=== PATIENT | male | born 1950 | race Caucasian/White ===

== ENCOUNTER 2017-05-24 16:11 | Inpatient (IN) | payer OTHER ==
[2017-05-24 17:36] LABS: ADD MAN DIFF? NO
[2017-05-24 17:38] LABS: WHITE BLOOD COUNT 14.3 10^3/ul (4.8-10.8)
[2017-05-24 17:38] LABS: BASOPHIL # 0.1 10^3/ul (0.0-0.1); BASOPHILS % 0.3 % (0.0-2.0); EOSINOPHILS # 0.2 10^3/ul (0.0-0.5); EOSINOPHILS % 1.5 % (0.0-7.0); HEMATOCRIT 39.1 % (42.0-52.0); HEMOGLOBIN 12.3 g/dl (14.0-18.0); LYMPHOCYTES # 2.6 10^3/ul (0.8-2.9); LYMPHOCYTES % 18.2 % (15.0-51.0); MEAN CORPUSCULAR HGB CONC 31.5 g/dl (32.0-37.0); MEAN CORPUSCULAR VOLUME 104.8 fl (82.0-101.0); MEAN PLATELET VOLUME 10.9 fl (7.4-10.4); MONOCYTE # 1.5 10^3/ul (0.3-0.9); MONOCYTES % 10.3 % (0.0-11.0); NEUTROPHIL # 9.9 10^3/ul (1.6-7.5); PLATELET COUNT 294 10^3/UL (140-415); RED BLOOD COUNT 3.73 10^6/ul (4.70-6.10); RED CELL DISTRIBUTION WIDTH 14.6 % (11.5-14.5)
[2017-05-24] MEDS: IBUPROFEN 600 MG TAB PO (18:09)
[2017-05-24] MEDS: HYDROmorphONE 1 MG/ML SYG IV (18:09)
[2017-05-24 18:32] LABS: ANION GAP 24 (8-16); BLOOD UREA NITROGEN 69 mg/dl (7-20); CALCIUM 8.7 mg/dl (8.4-10.2); CARBON DIOXIDE 22 mmol/L (21-31); CHLORIDE 96 mmol/L (97-110); CREATININE 7.74 mg/dl (0.61-1.24); GLUCOSE 97 mg/dl (70-220); POTASSIUM 5.8 mmol/L (3.5-5.1); SODIUM 136 mmol/L (135-144)
[2017-05-24] MEDS ORDERED: DOCUSATE SODIUM 100 MG CAP PO (19:00)
[2017-05-24] MEDS ORDERED: LORAZEPAM 2 MG INJ IV (19:00)
[2017-05-24] MEDS ORDERED: NACL 0.9% 3 ML SYG IV (19:00)
[2017-05-24] MEDS ORDERED: hydrALAzine 20 MG INJ IV (19:00)
[2017-05-24] MEDS ORDERED: VANCOMYCIN IV PER PHARMACY XX (19:00)
[2017-05-24] MEDS ORDERED: ONDANSETRON 4 MG INJ IV (19:00)
[2017-05-24] MEDS ORDERED: NA PHOSPHATE/BIPHOS 133 ML ENEMA PR (19:00)
[2017-05-24 19:08] LABS: FREE T4 (FREE THYROXINE) 1.46 ng/dl (0.78-2.44)
[2017-05-24] MEDS ORDERED: GLUCOSE GEL 15 GRAM TUBE BUCCAL (20:30)
[2017-05-24] MEDS ORDERED: DEXTROSE 50% 50 ML SYRINGE IV ×2 (20:30)
[2017-05-24] MEDS ORDERED: GLUCOSE GEL 15 GRAM TUBE PO ×2 (20:30)
[2017-05-24] MEDS ORDERED: GLUCAGON 1 MG INJ IM (20:30)
[2017-05-24] MEDS: SOD CHLORIDE 0.45% 1,000 ML IV (20:54)
[2017-05-24] MEDS: INSULIN ASPART [NOVOLOG] 3 ML PEN SC (20:55)
[2017-05-24] MEDS: METOPROLOL 25 MG TAB PO (20:56)
[2017-05-24] MEDS: HEPARIN 5,000 UNIT/0.5 ML VIAL SC (20:58)
[2017-05-24] MEDS ORDERED: MEROPENEM 1 GM/50ML(PMX) 50 ML IVPB (21:00)
[2017-05-24] MEDS ORDERED: [UNRECOGNIZED DRUG - REMARK] HE (21:00)
[2017-05-24] MEDS ORDERED: NA POLYST SULFON 15 GM/60 ML BTL PO (21:00)
[2017-05-24] MEDS: CLINDAMYCIN 600 MG/D5W (PMX) 50 ML IVPB (21:51)
[2017-05-24] MEDS: NA POLYST SULFON 15 GM/60 ML BTL PO (21:51)
[2017-05-24] MEDS: PIPER-TAZO 2.25 GM (PMX) 50 ML IVPB (21:52)
[2017-05-25] MEDS ORDERED: PIPER-TAZO 3.375 GM IV (PMX) 50 ML IVPB
[2017-05-25] MEDS: INSULIN ASPART [NOVOLOG] 3 ML PEN SC ×5 (01:00→20:48)
[2017-05-25] MEDS: ACCU-CHEK XX (02:00)
[2017-05-25] MEDS: PIPER-TAZO 2.25 GM (PMX) 50 ML IVPB ×2 (05:09→14:49)
[2017-05-25] MEDS: PANTOPRAZOLE (EC) 40 MG TAB PO (05:46)
[2017-05-25] MEDS: CLINDAMYCIN 600 MG/D5W (PMX) 50 ML IVPB ×2 (05:47→11:28)
[2017-05-25] MEDS: morphine 2 MG INJ IV ×3 (05:48→15:17)
[2017-05-25 07:03] LABS: ADD MAN DIFF? NO
[2017-05-25 07:06] LABS: CHOL/HDL RATIO 2.9 RATIO; HDL CHOLESTEROL 36 mg/dl (30-78); LDL CHOLESTEROL,CALCULATED 57 mg/dl; TRIGLYCERIDES 71 mg/dl (0-149)
[2017-05-25 07:06] LABS: CHOLESTEROL 107 mg/dl (100-200)
[2017-05-25 07:07] LABS: HEMOGLOBIN A1C 5.3 % (0-5.9); WHITE BLOOD COUNT 10.4 10^3/ul (4.8-10.8)
[2017-05-25 07:07] LABS: BASOPHILS % 0.4 % (0.0-2.0); EOSINOPHILS # 0.3 10^3/ul (0.0-0.5); EOSINOPHILS % 2.9 % (0.0-7.0); HEMATOCRIT 31.2 % (42.0-52.0); HEMOGLOBIN 9.6 g/dl (14.0-18.0); LYMPHOCYTES # 2.5 10^3/ul (0.8-2.9); LYMPHOCYTES % 24.1 % (15.0-51.0); MEAN CORPUSCULAR HEMOGLOBIN 32.3 pg (29.0-33.0); MEAN CORPUSCULAR HGB CONC 30.8 g/dl (32.0-37.0); MEAN CORPUSCULAR VOLUME 105.1 fl (82.0-101.0); MEAN PLATELET VOLUME 10.5 fl (7.4-10.4); MONOCYTE # 1.2 10^3/ul (0.3-0.9); MONOCYTES % 11.5 % (0.0-11.0); NEUTROPHIL # 6.3 10^3/ul (1.6-7.5); NEUTROPHILS % 60.4 % (39.0-77.0); PLATELET COUNT 263 10^3/UL (140-415); RED BLOOD COUNT 2.97 10^6/ul (4.70-6.10); RED CELL DISTRIBUTION WIDTH 14.4 % (11.5-14.5)
[2017-05-25 07:47] LABS: ANION GAP 27 (8-16); BLOOD UREA NITROGEN 82 mg/dl (7-20); CALCIUM 8.2 mg/dl (8.4-10.2); CARBON DIOXIDE 21 mmol/L (21-31); CHLORIDE 99 mmol/L (97-110); CREATININE 8.49 mg/dl (0.61-1.24); GLUCOSE 71 mg/dl (70-220); PHOSPHORUS 5.4 mg/dl (2.5-4.9); POTASSIUM 4.9 mmol/L (3.5-5.1); SODIUM 142 mmol/L (135-144)
[2017-05-25] MEDS: SOD CHLORIDE 0.45% 1,000 ML IV ×2 (07:51→21:11)
[2017-05-25] MEDS: SEVELAMER 800 MG TAB PO ×3 (07:57→17:07)
[2017-05-25] MEDS: ASPIRIN (EC) 81 MG TAB PO (08:40)
[2017-05-25] MEDS: HEPARIN 5,000 UNIT/0.5 ML VIAL SC ×2 (08:40→20:42)
[2017-05-25] MEDS: MULTIVIT/CA CARB/B CMPLX/FA TAB PO (08:40)
[2017-05-25] MEDS: METOPROLOL 25 MG TAB PO ×2 (08:41→20:41)
[2017-05-25] MEDS ORDERED: NON-FORMULARY/PATIENT OWN MED (Omeprazole* 40 MG) PO (09:00)
[2017-05-25] MEDS: HYDROCODONE/APAP (5/325) TAB PO (16:51)
[2017-05-25] MEDS ORDERED: ERTAPENEM SODIUM 0.5 GM in SOD CHLORIDE 0.9% 100 ML IVPB (18:00)
[2017-05-25] MEDS: HYDROmorphONE 1 MG/ML SYG IV (18:53)
[2017-05-25] MEDS: ERTAPENEM SODIUM 0.5 GM in SOD CHLORIDE 0.9% 100 ML IVPB (20:41)
[2017-05-25] MEDS: DAPTOMYCIN IVPB (22:21)
[2017-05-25] MEDS: SOD CHLORIDE 0.9% IVPB (22:21)
[2017-05-26] MEDS: ACCU-CHEK XX ×2 (02:00)
[2017-05-26] MEDS: HYDROmorphONE 1 MG/ML SYG IV ×4 (02:18→21:51)
[2017-05-26] MEDS: PANTOPRAZOLE (EC) 40 MG TAB PO (05:33)
[2017-05-26] MEDS: INSULIN ASPART [NOVOLOG] 3 ML PEN SC ×4 (08:00→21:00)
[2017-05-26 08:57] LABS: ADD MAN DIFF? NO
[2017-05-26] MEDS: METOPROLOL 25 MG TAB PO ×2 (09:00→21:07)
[2017-05-26 09:04] LABS: BASOPHIL # 0.1 10^3/ul (0.0-0.1); BASOPHILS % 0.5 % (0.0-2.0); EOSINOPHILS # 0.3 10^3/ul (0.0-0.5); EOSINOPHILS % 2.9 % (0.0-7.0); HEMATOCRIT 31.3 % (42.0-52.0); LYMPHOCYTES # 2.8 10^3/ul (0.8-2.9); LYMPHOCYTES % 25.8 % (15.0-51.0); MEAN CORPUSCULAR HEMOGLOBIN 33.2 pg (29.0-33.0); MEAN CORPUSCULAR HGB CONC 31.9 g/dl (32.0-37.0); MEAN PLATELET VOLUME 10.8 fl (7.4-10.4); MONOCYTE # 1.2 10^3/ul (0.3-0.9); MONOCYTES % 11.1 % (0.0-11.0); NEUTROPHIL # 6.3 10^3/ul (1.6-7.5); NEUTROPHILS % 59.1 % (39.0-77.0); PLATELET COUNT 294 10^3/UL (140-415); RED BLOOD COUNT 3.01 10^6/ul (4.70-6.10); RED CELL DISTRIBUTION WIDTH 14.1 % (11.5-14.5)
[2017-05-26 09:04] LABS: WHITE BLOOD COUNT 10.7 10^3/ul (4.8-10.8)
[2017-05-26 09:25] LABS: ANION GAP 23 (8-16); BLOOD UREA NITROGEN 106 mg/dl (7-20); CALCIUM 8.2 mg/dl (8.4-10.2); CARBON DIOXIDE 22 mmol/L (21-31); CHLORIDE 94 mmol/L (97-110); CREATININE 10.48 mg/dl (0.61-1.24); GLUCOSE 74 mg/dl (70-220); POTASSIUM 5.2 mmol/L (3.5-5.1); SODIUM 134 mmol/L (135-144)
[2017-05-26] MEDS: SOD CHLORIDE 0.45% 1,000 ML IV ×2 (10:31→23:58)
[2017-05-26] MEDS: MULTIVIT/CA CARB/B CMPLX/FA TAB PO (10:36)
[2017-05-26] MEDS: ASPIRIN (EC) 81 MG TAB PO (10:37)
[2017-05-26] MEDS: SEVELAMER 800 MG TAB PO ×3 (10:37→17:56)
[2017-05-26] MEDS: HEPARIN 5,000 UNIT/0.5 ML VIAL SC ×2 (10:39→21:10)
[2017-05-26] MEDS: ERTAPENEM SODIUM 0.5 GM in SOD CHLORIDE 0.9% 100 ML IVPB (17:59)
[2017-05-26] MEDS: morphine 2 MG INJ IV (18:47)
[2017-05-27] MEDS: HYDROmorphONE 1 MG/ML SYG IV ×6 (01:53→22:10)
[2017-05-27] MEDS: ACCU-CHEK XX ×2 (02:00)
[2017-05-27] MEDS: PANTOPRAZOLE (EC) 40 MG TAB PO (06:15)
[2017-05-27 07:19] LABS: ADD MAN DIFF? NO
[2017-05-27 07:24] LABS: WHITE BLOOD COUNT 10.8 10^3/ul (4.8-10.8)
[2017-05-27 07:24] LABS: BASOPHIL # 0.1 10^3/ul (0.0-0.1); BASOPHILS % 0.5 % (0.0-2.0); EOSINOPHILS # 0.3 10^3/ul (0.0-0.5); HEMATOCRIT 32.4 % (42.0-52.0); HEMOGLOBIN 10.5 g/dl (14.0-18.0); LYMPHOCYTES # 2.4 10^3/ul (0.8-2.9); LYMPHOCYTES % 22.2 % (15.0-51.0); MEAN CORPUSCULAR HEMOGLOBIN 33.1 pg (29.0-33.0); MEAN CORPUSCULAR HGB CONC 32.4 g/dl (32.0-37.0); MEAN CORPUSCULAR VOLUME 102.2 fl (82.0-101.0); MEAN PLATELET VOLUME 10.6 fl (7.4-10.4); MONOCYTE # 1.2 10^3/ul (0.3-0.9); MONOCYTES % 10.9 % (0.0-11.0); NEUTROPHIL # 6.8 10^3/ul (1.6-7.5); NEUTROPHILS % 62.8 % (39.0-77.0); PLATELET COUNT 292 10^3/UL (140-415); RED BLOOD COUNT 3.17 10^6/ul (4.70-6.10); RED CELL DISTRIBUTION WIDTH 13.9 % (11.5-14.5)
[2017-05-27 07:46] LABS: ANION GAP 20 (8-16); BLOOD UREA NITROGEN 80 mg/dl (7-20); CALCIUM 8.4 mg/dl (8.4-10.2); CARBON DIOXIDE 27 mmol/L (21-31); CHLORIDE 92 mmol/L (97-110); CREATININE 7.74 mg/dl (0.61-1.24); GLUCOSE 82 mg/dl (70-220); POTASSIUM 4.7 mmol/L (3.5-5.1); SODIUM 134 mmol/L (135-144)
[2017-05-27 07:51] LABS: CREATINE KINASE 64 IU/L (23-200)
[2017-05-27] MEDS: INSULIN ASPART [NOVOLOG] 3 ML PEN SC ×4 (08:00→20:34)
[2017-05-27] MEDS: SEVELAMER 800 MG TAB PO ×3 (08:57→17:30)
[2017-05-27] MEDS: ASPIRIN (EC) 81 MG TAB PO (09:02)
[2017-05-27] MEDS: METOPROLOL 25 MG TAB PO ×2 (09:02→21:27)
[2017-05-27] MEDS: MULTIVIT/CA CARB/B CMPLX/FA TAB PO (09:03)
[2017-05-27] MEDS: HEPARIN 5,000 UNIT/0.5 ML VIAL SC ×2 (09:07→21:28)
[2017-05-27] MEDS: morphine 2 MG INJ IV ×2 (12:14→20:00)
[2017-05-27] MEDS: SOD CHLORIDE 0.45% 1,000 ML IV (12:18)
[2017-05-27] MEDS: ERTAPENEM SODIUM 0.5 GM in SOD CHLORIDE 0.9% 100 ML IVPB (17:25)
[2017-05-27] MEDS: SOD CHLORIDE 0.9% IVPB (17:57)
[2017-05-27] MEDS: DAPTOMYCIN IVPB (17:57)
[2017-05-28] MEDS: ACCU-CHEK XX ×2 (02:00)
[2017-05-28] MEDS: SOD CHLORIDE 0.45% 1,000 ML IV (03:17)
[2017-05-28] MEDS: HYDROmorphONE 1 MG/ML SYG IV ×4 (03:17→20:58)
[2017-05-28] MEDS: PANTOPRAZOLE (EC) 40 MG TAB PO (05:17)
[2017-05-28 06:08] LABS: ADD MAN DIFF? NO
[2017-05-28 06:16] LABS: BASOPHIL # 0.1 10^3/ul (0.0-0.1); BASOPHILS % 0.5 % (0.0-2.0); EOSINOPHILS # 0.5 10^3/ul (0.0-0.5); EOSINOPHILS % 4.2 % (0.0-7.0); HEMATOCRIT 30.5 % (42.0-52.0); HEMOGLOBIN 9.9 g/dl (14.0-18.0); LYMPHOCYTES # 2.5 10^3/ul (0.8-2.9); LYMPHOCYTES % 19.8 % (15.0-51.0); MEAN CORPUSCULAR HEMOGLOBIN 32.9 pg (29.0-33.0); MEAN CORPUSCULAR HGB CONC 32.5 g/dl (32.0-37.0); MEAN CORPUSCULAR VOLUME 101.3 fl (82.0-101.0); MEAN PLATELET VOLUME 10.8 fl (7.4-10.4); MONOCYTE # 1.3 10^3/ul (0.3-0.9); MONOCYTES % 10.4 % (0.0-11.0); NEUTROPHIL # 8.1 10^3/ul (1.6-7.5); NEUTROPHILS % 64.7 % (39.0-77.0); PLATELET COUNT 301 10^3/UL (140-415); RED BLOOD COUNT 3.01 10^6/ul (4.70-6.10); RED CELL DISTRIBUTION WIDTH 13.8 % (11.5-14.5)
[2017-05-28 06:16] LABS: WHITE BLOOD COUNT 12.5 10^3/ul (4.8-10.8)
[2017-05-28] MEDS: morphine 2 MG INJ IV ×2 (06:31→06:36)
[2017-05-28 06:47] LABS: ANION GAP 23 (8-16); BLOOD UREA NITROGEN 96 mg/dl (7-20); CALCIUM 8.4 mg/dl (8.4-10.2); CARBON DIOXIDE 24 mmol/L (21-31); CHLORIDE 90 mmol/L (97-110); GLUCOSE 83 mg/dl (70-220); SODIUM 132 mmol/L (135-144)
[2017-05-28 07:00] LABS: CREATININE 9.54 mg/dl (0.61-1.24)
[2017-05-28 07:02] LABS: POTASSIUM 5.2 mmol/L (3.5-5.1)
[2017-05-28] MEDS: SEVELAMER 800 MG TAB PO ×3 (07:35→17:02)
[2017-05-28] MEDS: INSULIN ASPART [NOVOLOG] 3 ML PEN SC ×4 (07:52→21:00)
[2017-05-28] MEDS: HEPARIN 5,000 UNIT/0.5 ML VIAL SC ×2 (07:58→20:59)
[2017-05-28] MEDS: MULTIVIT/CA CARB/B CMPLX/FA TAB PO (08:44)
[2017-05-28] MEDS: ASPIRIN (EC) 81 MG TAB PO (08:44)
[2017-05-28] MEDS: METOPROLOL 25 MG TAB PO ×2 (08:44→20:58)
[2017-05-28] MEDS: DEXTROSE 5%-0.45% NACL 1,000 ML IV (10:09)
[2017-05-28] MEDS ORDERED: MIDAZOLAM 1 MG/ML 2 ML INJ (17:43)
[2017-05-28] MEDS ORDERED: FENTAnyl 50 MCG/ML VIAL (17:43)
[2017-05-28] MEDS ORDERED: IODIXANOL LOCM 100 ML BTL (18:24)
[2017-05-28] MEDS ORDERED: LIDOCAINE 1% (MDV) 20 ML INJ (18:24)
[2017-05-28] MEDS ORDERED: HEPARIN 1000 UNITS/NS (A-LINE) 1,000 ML (18:24)
[2017-05-28] MEDS: ERTAPENEM SODIUM 0.5 GM in SOD CHLORIDE 0.9% 100 ML IVPB (19:04)
[2017-05-29] MEDS: HYDROmorphONE 1 MG/ML SYG IV ×5 (00:38→21:16)
[2017-05-29] MEDS: ACCU-CHEK XX ×2 (01:57)
[2017-05-29] MEDS: PANTOPRAZOLE (EC) 40 MG TAB PO (05:28)
[2017-05-29] MEDS: MAGNESIUM HYDROXIDE 30ML CUP PO (05:30)
[2017-05-29] MEDS: DEXTROSE 5%-0.45% NACL 1,000 ML IV (05:30)
[2017-05-29 06:23] LABS: ADD MAN DIFF? NO
[2017-05-29] MEDS: SOD CHLORIDE 0.45% 1,000 ML IV ×2 (06:23→22:10)
[2017-05-29 06:31] LABS: WHITE BLOOD COUNT 13.9 10^3/ul (4.8-10.8)
[2017-05-29 06:31] LABS: BASOPHIL # 0.1 10^3/ul (0.0-0.1); BASOPHILS % 0.4 % (0.0-2.0); EOSINOPHILS # 0.8 10^3/ul (0.0-0.5); EOSINOPHILS % 5.7 % (0.0-7.0); HEMATOCRIT 28.3 % (42.0-52.0); HEMOGLOBIN 9.4 g/dl (14.0-18.0); LYMPHOCYTES # 2.9 10^3/ul (0.8-2.9); LYMPHOCYTES % 20.5 % (15.0-51.0); MEAN CORPUSCULAR HEMOGLOBIN 33.5 pg (29.0-33.0); MEAN CORPUSCULAR HGB CONC 33.2 g/dl (32.0-37.0); MEAN CORPUSCULAR VOLUME 100.7 fl (82.0-101.0); MEAN PLATELET VOLUME 10.3 fl (7.4-10.4); MONOCYTE # 1.4 10^3/ul (0.3-0.9); MONOCYTES % 10.3 % (0.0-11.0); NEUTROPHIL # 8.7 10^3/ul (1.6-7.5); NEUTROPHILS % 62.6 % (39.0-77.0); PLATELET COUNT 292 10^3/UL (140-415); RED BLOOD COUNT 2.81 10^6/ul (4.70-6.10); RED CELL DISTRIBUTION WIDTH 13.6 % (11.5-14.5)
[2017-05-29 06:53] LABS: ANION GAP 22 (8-16); BLOOD UREA NITROGEN 111 mg/dl (7-20); CALCIUM 8.1 mg/dl (8.4-10.2); CARBON DIOXIDE 21 mmol/L (21-31); CHLORIDE 92 mmol/L (97-110); GLUCOSE 95 mg/dl (70-220); POTASSIUM 5.7 mmol/L (3.5-5.1); SODIUM 129 mmol/L (135-144)
[2017-05-29 07:00] LABS: CREATININE 11.04 mg/dl (0.61-1.24)
[2017-05-29] MEDS: INSULIN ASPART [NOVOLOG] 3 ML PEN SC ×4 (07:38→20:30)
[2017-05-29] MEDS: MULTIVIT/CA CARB/B CMPLX/FA TAB PO (09:52)
[2017-05-29] MEDS: SEVELAMER 800 MG TAB PO ×3 (09:52→17:06)
[2017-05-29] MEDS: ASPIRIN (EC) 81 MG TAB PO (09:52)
[2017-05-29] MEDS: HEPARIN 5,000 UNIT/0.5 ML VIAL SC ×2 (09:56→20:32)
[2017-05-29] MEDS: morphine 2 MG INJ IV ×2 (09:56→13:51)
[2017-05-29] MEDS: METOPROLOL 25 MG TAB PO ×2 (09:56→20:31)
[2017-05-29] MEDS: OXYCODONE/ACETAMINOPHEN (10/325) TAB PO ×2 (15:02→23:13)
[2017-05-29] MEDS: ERTAPENEM SODIUM 0.5 GM in SOD CHLORIDE 0.9% 100 ML IVPB (17:06)
[2017-05-29] MEDS: DAPTOMYCIN IVPB (17:42)
[2017-05-29] MEDS: SOD CHLORIDE 0.9% IVPB (17:42)
[2017-05-29] MEDS: GABAPENTIN 300 MG CAP PO (20:30)
[2017-05-30] MEDS: ACCU-CHEK XX (02:00)
[2017-05-30] MEDS: PANTOPRAZOLE (EC) 40 MG TAB PO (05:51)
[2017-05-30] MEDS: HYDROmorphONE 1 MG/ML SYG IV ×4 (06:03→22:29)
[2017-05-30 06:14] LABS: ADD MAN DIFF? NO
[2017-05-30 06:18] LABS: BASOPHIL # 0.1 10^3/ul (0.0-0.1); BASOPHILS % 0.6 % (0.0-2.0); EOSINOPHILS # 0.8 10^3/ul (0.0-0.5); EOSINOPHILS % 6.7 % (0.0-7.0); HEMATOCRIT 26.3 % (42.0-52.0); HEMOGLOBIN 8.6 g/dl (14.0-18.0); LYMPHOCYTES # 2.3 10^3/ul (0.8-2.9); LYMPHOCYTES % 20.6 % (15.0-51.0); MEAN CORPUSCULAR HGB CONC 32.7 g/dl (32.0-37.0); MEAN PLATELET VOLUME 10.5 fl (7.4-10.4); MONOCYTE # 1.4 10^3/ul (0.3-0.9); MONOCYTES % 12.4 % (0.0-11.0); NEUTROPHIL # 6.6 10^3/ul (1.6-7.5); NEUTROPHILS % 59.1 % (39.0-77.0); PLATELET COUNT 277 10^3/UL (140-415); RED BLOOD COUNT 2.53 10^6/ul (4.70-6.10); RED CELL DISTRIBUTION WIDTH 13.8 % (11.5-14.5)
[2017-05-30 06:18] LABS: WHITE BLOOD COUNT 11.2 10^3/ul (4.8-10.8)
[2017-05-30 06:50] LABS: ANION GAP 19 (8-16); BLOOD UREA NITROGEN 70 mg/dl (7-20); CALCIUM 7.9 mg/dl (8.4-10.2); CARBON DIOXIDE 23 mmol/L (21-31); CHLORIDE 100 mmol/L (97-110); CREATININE 8.65 mg/dl (0.61-1.24); GLUCOSE 97 mg/dl (70-220); POTASSIUM 4.8 mmol/L (3.5-5.1); SODIUM 137 mmol/L (135-144)
[2017-05-30] MEDS: INSULIN ASPART [NOVOLOG] 3 ML PEN SC ×4 (07:44→20:56)
[2017-05-30] MEDS: ASPIRIN (EC) 81 MG TAB PO (07:59)
[2017-05-30] MEDS: SEVELAMER 800 MG TAB PO ×3 (07:59→17:48)
[2017-05-30] MEDS: OXYCODONE/ACETAMINOPHEN (10/325) TAB PO ×2 (08:00→12:56)
[2017-05-30] MEDS: MULTIVIT/CA CARB/B CMPLX/FA TAB PO (08:00)
[2017-05-30] MEDS: GABAPENTIN 300 MG CAP PO ×3 (08:02→20:45)
[2017-05-30] MEDS: METOPROLOL 25 MG TAB PO ×2 (09:00→20:45)
[2017-05-30] MEDS: HEPARIN 5,000 UNIT/0.5 ML VIAL SC ×2 (09:00→20:49)
[2017-05-30] MEDS: SOD CHLORIDE 0.45% 1,000 ML IV (12:51)
[2017-05-30] MEDS: ERTAPENEM SODIUM 0.5 GM in SOD CHLORIDE 0.9% 100 ML IVPB (17:44)
[2017-05-31] MEDS: ACCU-CHEK XX ×2 (02:00→21:51)
[2017-05-31] MEDS: HYDROmorphONE 1 MG/ML SYG IV ×2 (02:33→21:58)
[2017-05-31] MEDS: SOD CHLORIDE 0.45% 1,000 ML IV ×2 (02:34→11:50)
[2017-05-31] MEDS: PANTOPRAZOLE (EC) 40 MG TAB PO (05:28)
[2017-05-31 05:59] LABS: ADD MAN DIFF? NO
[2017-05-31 06:01] LABS: WHITE BLOOD COUNT 11.9 10^3/ul (4.8-10.8)
[2017-05-31 06:01] LABS: BASOPHIL # 0.1 10^3/ul (0.0-0.1); BASOPHILS % 0.5 % (0.0-2.0); EOSINOPHILS # 0.7 10^3/ul (0.0-0.5); EOSINOPHILS % 5.5 % (0.0-7.0); HEMATOCRIT 28.1 % (42.0-52.0); HEMOGLOBIN 9.1 g/dl (14.0-18.0); LYMPHOCYTES # 2.5 10^3/ul (0.8-2.9); LYMPHOCYTES % 21.1 % (15.0-51.0); MEAN CORPUSCULAR HEMOGLOBIN 33.3 pg (29.0-33.0); MEAN CORPUSCULAR HGB CONC 32.4 g/dl (32.0-37.0); MEAN CORPUSCULAR VOLUME 102.9 fl (82.0-101.0); MEAN PLATELET VOLUME 10.8 fl (7.4-10.4); MONOCYTE # 1.3 10^3/ul (0.3-0.9); MONOCYTES % 10.8 % (0.0-11.0); NEUTROPHIL # 7.3 10^3/ul (1.6-7.5); NEUTROPHILS % 61.6 % (39.0-77.0); PLATELET COUNT 293 10^3/UL (140-415); RED BLOOD COUNT 2.73 10^6/ul (4.70-6.10); RED CELL DISTRIBUTION WIDTH 13.7 % (11.5-14.5)
[2017-05-31 06:55] LABS: ANION GAP 20 (8-16); BLOOD UREA NITROGEN 56 mg/dl (7-20); CALCIUM 8.1 mg/dl (8.4-10.2); CARBON DIOXIDE 24 mmol/L (21-31); CHLORIDE 95 mmol/L (97-110); CREATININE 6.55 mg/dl (0.61-1.24); GLUCOSE 94 mg/dl (70-220); POTASSIUM 4.7 mmol/L (3.5-5.1); SODIUM 134 mmol/L (135-144)
[2017-05-31] MEDS: INSULIN ASPART [NOVOLOG] 3 ML PEN SC ×4 (08:00→20:44)
[2017-05-31] MEDS: METOPROLOL 25 MG TAB PO ×2 (08:27→20:46)
[2017-05-31] MEDS: GABAPENTIN 300 MG CAP PO ×3 (08:27→20:45)
[2017-05-31] MEDS: SEVELAMER 800 MG TAB PO ×3 (08:27→17:31)
[2017-05-31] MEDS: ASPIRIN (EC) 81 MG TAB PO (08:27)
[2017-05-31] MEDS: MULTIVIT/CA CARB/B CMPLX/FA TAB PO (08:27)
[2017-05-31] MEDS: HEPARIN 5,000 UNIT/0.5 ML VIAL SC ×2 (08:29→20:47)
[2017-05-31] MEDS: HYDROCODONE/APAP (5/325) TAB PO (09:35)
[2017-05-31 13:28] LABS: IRON 78 ug/dl (35-150)
[2017-05-31 13:37] LABS: % IRON SATURATION 53 % SAT (22-52); TOTAL IRON BINDING CAPACITY 148 ug/dl (241-421)
[2017-05-31] MEDS: PENTOXIFYLLINE (SR) 400 MG TAB PO ×2 (14:42→20:45)
[2017-05-31] MEDS: ERTAPENEM SODIUM 0.5 GM in SOD CHLORIDE 0.9% 100 ML IVPB (17:31)
[2017-05-31] MEDS: SOD CHLORIDE 0.9% IVPB (18:28)
[2017-05-31] MEDS: DAPTOMYCIN IVPB (18:28)
[2017-05-31] MEDS: CILOSTAZOL 100 MG TAB PO (20:46)
[2017-06-01] MEDS: HYDROmorphONE 1 MG/ML SYG IV ×3 (04:11→20:29)
[2017-06-01] MEDS: ACETAMINOPHEN 325 MG TAB PO (04:18)
[2017-06-01] MEDS: PANTOPRAZOLE (EC) 40 MG TAB PO (05:11)
[2017-06-01 06:01] LABS: ADD MAN DIFF? NO
[2017-06-01 06:05] LABS: BASOPHILS % 0.2 % (0.0-2.0); EOSINOPHILS # 0.3 10^3/ul (0.0-0.5); EOSINOPHILS % 1.9 % (0.0-7.0); HEMATOCRIT 26.3 % (42.0-52.0); HEMOGLOBIN 8.7 g/dl (14.0-18.0); LYMPHOCYTES # 1.3 10^3/ul (0.8-2.9); LYMPHOCYTES % 8.2 % (15.0-51.0); MEAN CORPUSCULAR HGB CONC 33.1 g/dl (32.0-37.0); MEAN CORPUSCULAR VOLUME 102.7 fl (82.0-101.0); MEAN PLATELET VOLUME 10.6 fl (7.4-10.4); MONOCYTE # 1.1 10^3/ul (0.3-0.9); MONOCYTES % 7.3 % (0.0-11.0); NEUTROPHIL # 12.6 10^3/ul (1.6-7.5); NEUTROPHILS % 81.9 % (39.0-77.0); PLATELET COUNT 311 10^3/UL (140-415); RED BLOOD COUNT 2.56 10^6/ul (4.70-6.10); RED CELL DISTRIBUTION WIDTH 13.6 % (11.5-14.5)
[2017-06-01 06:05] LABS: WHITE BLOOD COUNT 15.4 10^3/ul (4.8-10.8)
[2017-06-01 06:18] LABS: ANION GAP 22 (8-16); BLOOD UREA NITROGEN 71 mg/dl (7-20); CALCIUM 8.4 mg/dl (8.4-10.2); CARBON DIOXIDE 20 mmol/L (21-31); CHLORIDE 93 mmol/L (97-110); CREATININE 8.19 mg/dl (0.61-1.24); GLUCOSE 87 mg/dl (70-220); POTASSIUM 5.5 mmol/L (3.5-5.1); SODIUM 129 mmol/L (135-144)
[2017-06-01] MEDS: INSULIN ASPART [NOVOLOG] 3 ML PEN SC ×4 (08:00→20:18)
[2017-06-01] MEDS: NA POLYST SULFON 15 GM/60 ML BTL PO (09:39)
[2017-06-01] MEDS: MULTIVIT/CA CARB/B CMPLX/FA TAB PO (09:40)
[2017-06-01] MEDS: SEVELAMER 800 MG TAB PO ×3 (09:40→17:21)
[2017-06-01] MEDS: ASPIRIN (EC) 81 MG TAB PO (09:40)
[2017-06-01] MEDS: PENTOXIFYLLINE (SR) 400 MG TAB PO ×3 (09:41→20:26)
[2017-06-01] MEDS: GABAPENTIN 300 MG CAP PO ×3 (09:41→20:21)
[2017-06-01] MEDS: CILOSTAZOL 100 MG TAB PO ×2 (09:41→20:21)
[2017-06-01] MEDS: METOPROLOL 25 MG TAB PO ×2 (09:41→20:22)
[2017-06-01] MEDS: HEPARIN 5,000 UNIT/0.5 ML VIAL SC ×2 (09:48→20:19)
[2017-06-01] MEDS ORDERED: NA POLYST SULFON 15 GM/60 ML BTL PO (10:30)
[2017-06-01] MEDS: ERTAPENEM SODIUM 0.5 GM in SOD CHLORIDE 0.9% 100 ML IVPB (17:21)
[2017-06-01] MEDS: ACCU-CHEK XX (20:22)
[2017-06-02] MEDS: OXYCODONE/ACETAMINOPHEN (5/325) TAB PO (00:53)
[2017-06-02] MEDS: HYDROmorphONE 1 MG/ML SYG IV ×3 (05:29→22:04)
[2017-06-02] MEDS: PANTOPRAZOLE (EC) 40 MG TAB PO (05:29)
[2017-06-02 05:46] LABS: ADD MAN DIFF? NO
[2017-06-02 05:55] LABS: WHITE BLOOD COUNT 12.8 10^3/ul (4.8-10.8)
[2017-06-02 05:55] LABS: BASOPHIL # 0.1 10^3/ul (0.0-0.1); BASOPHILS % 0.4 % (0.0-2.0); EOSINOPHILS # 0.4 10^3/ul (0.0-0.5); EOSINOPHILS % 3.3 % (0.0-7.0); HEMOGLOBIN 7.8 g/dl (14.0-18.0); LYMPHOCYTES # 1.8 10^3/ul (0.8-2.9); LYMPHOCYTES % 13.8 % (15.0-51.0); MEAN CORPUSCULAR HEMOGLOBIN 33.2 pg (29.0-33.0); MEAN CORPUSCULAR HGB CONC 32.5 g/dl (32.0-37.0); MEAN CORPUSCULAR VOLUME 102.1 fl (82.0-101.0); MEAN PLATELET VOLUME 10.5 fl (7.4-10.4); MONOCYTE # 1.3 10^3/ul (0.3-0.9); NEUTROPHIL # 9.3 10^3/ul (1.6-7.5); NEUTROPHILS % 72.1 % (39.0-77.0); PLATELET COUNT 307 10^3/UL (140-415); RED BLOOD COUNT 2.35 10^6/ul (4.70-6.10); RED CELL DISTRIBUTION WIDTH 13.7 % (11.5-14.5)
[2017-06-02 06:48] LABS: ANION GAP 17 (8-16); BLOOD UREA NITROGEN 64 mg/dl (7-20); CALCIUM 8.3 mg/dl (8.4-10.2); CARBON DIOXIDE 24 mmol/L (21-31); CHLORIDE 97 mmol/L (97-110); CREATININE 7.12 mg/dl (0.61-1.24); GLUCOSE 86 mg/dl (70-220); POTASSIUM 4.1 mmol/L (3.5-5.1); SODIUM 134 mmol/L (135-144)
[2017-06-02] MEDS: INSULIN ASPART [NOVOLOG] 3 ML PEN SC ×4 (08:00→20:31)
[2017-06-02] MEDS: SEVELAMER 800 MG TAB PO ×3 (08:20→17:17)
[2017-06-02] MEDS: PENTOXIFYLLINE (SR) 400 MG TAB PO ×3 (08:21→20:31)
[2017-06-02] MEDS: CILOSTAZOL 100 MG TAB PO ×2 (08:21→20:31)
[2017-06-02] MEDS: ASPIRIN (EC) 81 MG TAB PO (08:21)
[2017-06-02] MEDS: GABAPENTIN 300 MG CAP PO ×3 (08:21→20:31)
[2017-06-02] MEDS: METOPROLOL 25 MG TAB PO ×2 (08:21→20:31)
[2017-06-02] MEDS: MULTIVIT/CA CARB/B CMPLX/FA TAB PO (08:21)
[2017-06-02] MEDS: HEPARIN 5,000 UNIT/0.5 ML VIAL SC (08:22)
[2017-06-02 13:51] LABS: IMMEDIATE SPIN CROSSMATCH 1 1
[2017-06-02] MEDS: LEVOFLOXACIN 250 MG TAB PO (15:55)
[2017-06-02 16:56] LABS: FOLATE > 20.0 ng/ml (2.8-20.0)
[2017-06-02] MEDS: DAPTOMYCIN IVPB (18:09)
[2017-06-02] MEDS: SOD CHLORIDE 0.9% IVPB (18:09)
[2017-06-02] MEDS: ACCU-CHEK XX (20:31)
[2017-06-03] MEDS: PANTOPRAZOLE (EC) 40 MG TAB PO (05:15)
[2017-06-03] MEDS: HYDROmorphONE 1 MG/ML SYG IV (05:16)
[2017-06-03 06:40] LABS: ADD MAN DIFF? NO
[2017-06-03 06:47] LABS: ABNORMAL IP MESSAGE 1; BASOPHIL # 0.1 10^3/ul (0.0-0.1); BASOPHILS % 0.5 % (0.0-2.0); EOSINOPHILS # 0.5 10^3/ul (0.0-0.5); EOSINOPHILS % 3.4 % (0.0-7.0); HEMATOCRIT 29.5 % (42.0-52.0); HEMOGLOBIN 9.5 g/dl (14.0-18.0); LYMPHOCYTES # 1.5 10^3/ul (0.8-2.9); LYMPHOCYTES % 11.7 % (15.0-51.0); MEAN CORPUSCULAR HEMOGLOBIN 32.6 pg (29.0-33.0); MEAN CORPUSCULAR HGB CONC 32.2 g/dl (32.0-37.0); MEAN CORPUSCULAR VOLUME 101.4 fl (82.0-101.0); MEAN PLATELET VOLUME 10.5 fl (7.4-10.4); MONOCYTE # 1.6 10^3/ul (0.3-0.9); NEUTROPHIL # 9.5 10^3/ul (1.6-7.5); NEUTROPHILS % 71.9 % (39.0-77.0); PLATELET COUNT 345 10^3/UL (140-415); POSITIVE DIFF @See below; RED BLOOD COUNT 2.91 10^6/ul (4.70-6.10)
[2017-06-03 06:47] LABS: WHITE BLOOD COUNT 13.2 10^3/ul (4.8-10.8)
[2017-06-03 07:23] LABS: ANION GAP 17 (8-16); BLOOD UREA NITROGEN 45 mg/dl (7-20); CARBON DIOXIDE 28 mmol/L (21-31); CHLORIDE 99 mmol/L (97-110); CREATININE 5.84 mg/dl (0.61-1.24); GLUCOSE 75 mg/dl (70-220); MAGNESIUM 1.9 mg/dl (1.7-2.5); POTASSIUM 4.8 mmol/L (3.5-5.1); SODIUM 139 mmol/L (135-144)
[2017-06-03 07:24] LABS: CREATINE KINASE 350 IU/L (23-200)
[2017-06-03] MEDS: INSULIN ASPART [NOVOLOG] 3 ML PEN SC ×4 (08:00→20:36)
[2017-06-03] MEDS: GABAPENTIN 300 MG CAP PO ×3 (08:59→20:36)
[2017-06-03] MEDS: SEVELAMER 800 MG TAB PO ×3 (08:59→17:46)
[2017-06-03] MEDS: PENTOXIFYLLINE (SR) 400 MG TAB PO ×3 (08:59→20:35)
[2017-06-03] MEDS: ASPIRIN (EC) 81 MG TAB PO (08:59)
[2017-06-03] MEDS: MULTIVIT/CA CARB/B CMPLX/FA TAB PO (08:59)
[2017-06-03] MEDS: CILOSTAZOL 100 MG TAB PO ×2 (08:59→20:36)
[2017-06-03] MEDS: METOPROLOL 25 MG TAB PO (09:00)
[2017-06-03] MEDS: METOPROLOL 50 MG TAB PO (20:36)
[2017-06-03] MEDS: ACCU-CHEK XX (23:41)
[2017-06-04] MEDS: ACETAMINOPHEN 325 MG TAB PO (00:23)
[2017-06-04] MEDS: PANTOPRAZOLE (EC) 40 MG TAB PO (05:14)
[2017-06-04 05:47] LABS: ADD MAN DIFF? NO
[2017-06-04 05:51] LABS: WHITE BLOOD COUNT 14.9 10^3/ul (4.8-10.8)
[2017-06-04 05:51] LABS: ABNORMAL IP MESSAGE 1; BASOPHIL # 0.1 10^3/ul (0.0-0.1); BASOPHILS % 0.4 % (0.0-2.0); EOSINOPHILS # 0.4 10^3/ul (0.0-0.5); EOSINOPHILS % 2.4 % (0.0-7.0); HEMATOCRIT 26.6 % (42.0-52.0); HEMOGLOBIN 8.6 g/dl (14.0-18.0); LYMPHOCYTES # 2.2 10^3/ul (0.8-2.9); LYMPHOCYTES % 14.6 % (15.0-51.0); MEAN CORPUSCULAR HGB CONC 32.3 g/dl (32.0-37.0); MEAN CORPUSCULAR VOLUME 101.9 fl (82.0-101.0); MEAN PLATELET VOLUME 10.5 fl (7.4-10.4); MONOCYTE # 1.6 10^3/ul (0.3-0.9); MONOCYTES % 10.7 % (0.0-11.0); NEUTROPHIL # 10.6 10^3/ul (1.6-7.5); NEUTROPHILS % 71.4 % (39.0-77.0); PLATELET COUNT 350 10^3/UL (140-415); POSITIVE DIFF @See below; RED BLOOD COUNT 2.61 10^6/ul (4.70-6.10); RED CELL DISTRIBUTION WIDTH 15.6 % (11.5-14.5)
[2017-06-04] MEDS: HALOPERIDOL 5 MG INJ IM (05:52)
[2017-06-04 06:22] LABS: ANION GAP 19 (8-16); BLOOD UREA NITROGEN 71 mg/dl (7-20); CALCIUM 8.6 mg/dl (8.4-10.2); CARBON DIOXIDE 22 mmol/L (21-31); CHLORIDE 99 mmol/L (97-110); CREATININE 7.56 mg/dl (0.61-1.24); GLUCOSE 80 mg/dl (70-220); POTASSIUM 4.7 mmol/L (3.5-5.1); SODIUM 135 mmol/L (135-144)
[2017-06-04] MEDS: INSULIN ASPART [NOVOLOG] 3 ML PEN SC ×4 (08:00→20:50)
[2017-06-04] MEDS: SEVELAMER 800 MG TAB PO ×3 (08:33→17:34)
[2017-06-04] MEDS: METOPROLOL 50 MG TAB PO ×2 (09:00→20:50)
[2017-06-04] MEDS: ASPIRIN (EC) 81 MG TAB PO (09:04)
[2017-06-04] MEDS: PENTOXIFYLLINE (SR) 400 MG TAB PO ×3 (09:04→20:50)
[2017-06-04] MEDS: MULTIVIT/CA CARB/B CMPLX/FA TAB PO (09:04)
[2017-06-04] MEDS: GABAPENTIN 300 MG CAP PO ×3 (09:04→20:50)
[2017-06-04] MEDS: CILOSTAZOL 100 MG TAB PO ×2 (09:05→20:49)
[2017-06-04] MEDS: ERTAPENEM SODIUM 1 GM in SOD CHLORIDE 0.9% 100 ML IVPB (15:30)
[2017-06-04] MEDS: DAPTOMYCIN IVPB (17:34)
[2017-06-04] MEDS: SOD CHLORIDE 0.9% IVPB (17:34)
[2017-06-05] MEDS: ACCU-CHEK XX ×2 (01:47→21:59)
[2017-06-05] MEDS: PANTOPRAZOLE (EC) 40 MG TAB PO (06:00)
[2017-06-05 06:49] LABS: ADD MAN DIFF? NO
[2017-06-05 06:52] LABS: WHITE BLOOD COUNT 11.3 10^3/ul (4.8-10.8)
[2017-06-05 06:52] LABS: BASOPHIL # 0.1 10^3/ul (0.0-0.1); BASOPHILS % 0.5 % (0.0-2.0); EOSINOPHILS # 0.4 10^3/ul (0.0-0.5); EOSINOPHILS % 3.3 % (0.0-7.0); HEMATOCRIT 28.5 % (42.0-52.0); HEMOGLOBIN 9.1 g/dl (14.0-18.0); LYMPHOCYTES # 1.9 10^3/ul (0.8-2.9); LYMPHOCYTES % 16.8 % (15.0-51.0); MEAN CORPUSCULAR HEMOGLOBIN 32.2 pg (29.0-33.0); MEAN CORPUSCULAR HGB CONC 31.9 g/dl (32.0-37.0); MEAN CORPUSCULAR VOLUME 100.7 fl (82.0-101.0); MEAN PLATELET VOLUME 10.4 fl (7.4-10.4); MONOCYTE # 1.3 10^3/ul (0.3-0.9); NEUTROPHIL # 7.7 10^3/ul (1.6-7.5); NEUTROPHILS % 67.9 % (39.0-77.0); PLATELET COUNT 368 10^3/UL (140-415); RED BLOOD COUNT 2.83 10^6/ul (4.70-6.10); RED CELL DISTRIBUTION WIDTH 15.2 % (11.5-14.5)
[2017-06-05 07:13] LABS: ANION GAP 19 (8-16); BLOOD UREA NITROGEN 45 mg/dl (7-20); CALCIUM 8.7 mg/dl (8.4-10.2); CARBON DIOXIDE 27 mmol/L (21-31); CHLORIDE 95 mmol/L (97-110); CREATININE 5.69 mg/dl (0.61-1.24); GLUCOSE 63 mg/dl (70-220); MAGNESIUM 1.9 mg/dl (1.7-2.5); POTASSIUM 3.8 mmol/L (3.5-5.1); SODIUM 137 mmol/L (135-144)
[2017-06-05] MEDS: OXYCODONE/ACETAMINOPHEN (10/325) TAB PO ×3 (07:49→22:01)
[2017-06-05] MEDS: SEVELAMER 800 MG TAB PO ×3 (07:49→17:44)
[2017-06-05] MEDS: METOPROLOL 50 MG TAB PO ×2 (07:50→21:58)
[2017-06-05] MEDS: INSULIN ASPART [NOVOLOG] 3 ML PEN SC ×4 (08:00→21:00)
[2017-06-05] MEDS: PENTOXIFYLLINE (SR) 400 MG TAB PO ×3 (09:07→21:58)
[2017-06-05] MEDS: CILOSTAZOL 100 MG TAB PO ×2 (09:07→21:59)
[2017-06-05] MEDS: GABAPENTIN 300 MG CAP PO ×3 (09:07→21:58)
[2017-06-05] MEDS: MULTIVIT/CA CARB/B CMPLX/FA TAB PO (09:07)
[2017-06-05] MEDS: ASPIRIN (EC) 81 MG TAB PO (09:07)
[2017-06-05] MEDS: ERTAPENEM SODIUM 0.5 GM in SOD CHLORIDE 0.9% 100 ML IVPB (12:42)
[2017-06-05] MEDS ORDERED: MINERAL OIL 133 ML ENEMA PR (14:00)
[2017-06-05] MEDS: LACTOBACILLUS RHAMNOSUS CAP PO ×2 (17:13→21:58)
[2017-06-05] MEDS: POLYETHYLENE GLYCOL 17 GM PACKET PO ×2 (17:15→21:59)
[2017-06-05] MEDS: BISACODYL (EC) 5 MG TAB PO (21:59)
[2017-06-06] MEDS: PANTOPRAZOLE (EC) 40 MG TAB PO (05:52)
[2017-06-06 06:07] LABS: ADD MAN DIFF? NO
[2017-06-06 06:09] LABS: BASOPHIL # 0.1 10^3/ul (0.0-0.1); BASOPHILS % 0.5 % (0.0-2.0); EOSINOPHILS # 0.5 10^3/ul (0.0-0.5); EOSINOPHILS % 4.2 % (0.0-7.0); HEMATOCRIT 27.4 % (42.0-52.0); HEMOGLOBIN 8.9 g/dl (14.0-18.0); LYMPHOCYTES # 2.5 10^3/ul (0.8-2.9); LYMPHOCYTES % 22.3 % (15.0-51.0); MEAN CORPUSCULAR HEMOGLOBIN 32.8 pg (29.0-33.0); MEAN CORPUSCULAR HGB CONC 32.5 g/dl (32.0-37.0); MEAN CORPUSCULAR VOLUME 101.1 fl (82.0-101.0); MEAN PLATELET VOLUME 10.1 fl (7.4-10.4); MONOCYTE # 1.4 10^3/ul (0.3-0.9); MONOCYTES % 13.1 % (0.0-11.0); NEUTROPHIL # 6.6 10^3/ul (1.6-7.5); NEUTROPHILS % 59.5 % (39.0-77.0); PLATELET COUNT 386 10^3/UL (140-415); RED BLOOD COUNT 2.71 10^6/ul (4.70-6.10); RED CELL DISTRIBUTION WIDTH 14.8 % (11.5-14.5)
[2017-06-06 06:35] LABS: ALANINE AMINOTRANSFERASE 26 IU/L (13-69); ALBUMIN 2.9 g/dl (3.3-4.9); ALBUMIN/GLOBULIN RATIO 0.76; ALKALINE PHOSPHATASE 97 IU/L (42-121); ANION GAP 18 (8-16); ASPARTATE AMINO TRANSFERASE 29 IU/L (15-46); BLOOD UREA NITROGEN 69 mg/dl (7-20); CALCIUM 8.6 mg/dl (8.4-10.2); CARBON DIOXIDE 25 mmol/L (21-31); CHLORIDE 95 mmol/L (97-110); CREATININE 7.56 mg/dl (0.61-1.24); GLUCOSE 66 mg/dl (70-220); PHOSPHORUS 5.3 mg/dl (2.5-4.9); POTASSIUM 4.9 mmol/L (3.5-5.1); SODIUM 133 mmol/L (135-144); TOTAL PROTEIN 6.7 g/dl (6.1-8.1)
[2017-06-06] MEDS: BISACODYL 10 MG SUPP PR (06:36)
[2017-06-06 07:42] LABS: FOLATE > 20.0 ng/ml (2.8-20.0)
[2017-06-06] MEDS: INSULIN ASPART [NOVOLOG] 3 ML PEN SC ×4 (08:00→20:55)
[2017-06-06] MEDS: ENOXAPARIN 30 MG/0.3 ML SYG SC (09:11)
[2017-06-06] MEDS: POLYETHYLENE GLYCOL 17 GM PACKET PO ×2 (09:12→20:56)
[2017-06-06] MEDS: LACTOBACILLUS RHAMNOSUS CAP PO ×2 (09:13→20:53)
[2017-06-06] MEDS: SEVELAMER 800 MG TAB PO ×3 (09:13→17:43)
[2017-06-06] MEDS: MULTIVIT/CA CARB/B CMPLX/FA TAB PO (09:14)
[2017-06-06] MEDS: GABAPENTIN 300 MG CAP PO ×3 (09:14→20:53)
[2017-06-06] MEDS: CILOSTAZOL 100 MG TAB PO ×2 (09:14→20:54)
[2017-06-06] MEDS: PENTOXIFYLLINE (SR) 400 MG TAB PO ×3 (09:15→20:54)
[2017-06-06] MEDS: ASPIRIN (EC) 81 MG TAB PO (09:15)
[2017-06-06] MEDS: METOPROLOL 50 MG TAB PO ×2 (09:15→20:54)
[2017-06-06] MEDS: OXYCODONE/ACETAMINOPHEN (10/325) TAB PO (16:09)
[2017-06-06] MEDS: ERTAPENEM SODIUM 0.5 GM in SOD CHLORIDE 0.9% 100 ML IVPB (16:09)
[2017-06-06] MEDS: DAPTOMYCIN IVPB (17:43)
[2017-06-06] MEDS: SOD CHLORIDE 0.9% IVPB (17:43)
[2017-06-06] MEDS: ACETAMINOPHEN 325 MG TAB PO (21:02)
[2017-06-06 21:46] LABS: RAPID PLASMA REAGIN NONREACTIVE (NR)
[2017-06-07] MEDS: ACCU-CHEK XX (02:00)
[2017-06-07] MEDS: PANTOPRAZOLE (EC) 40 MG TAB PO (05:10)
[2017-06-07 05:20] LABS: ADD MAN DIFF? NO
[2017-06-07 05:39] LABS: WHITE BLOOD COUNT 9.6 10^3/ul (4.8-10.8)
[2017-06-07 05:39] LABS: BASOPHIL # 0.1 10^3/ul (0.0-0.1); BASOPHILS % 0.5 % (0.0-2.0); EOSINOPHILS # 0.4 10^3/ul (0.0-0.5); EOSINOPHILS % 3.7 % (0.0-7.0); HEMATOCRIT 29.1 % (42.0-52.0); HEMOGLOBIN 9.2 g/dl (14.0-18.0); LYMPHOCYTES # 1.8 10^3/ul (0.8-2.9); LYMPHOCYTES % 18.6 % (15.0-51.0); MEAN CORPUSCULAR HEMOGLOBIN 32.7 pg (29.0-33.0); MEAN CORPUSCULAR HGB CONC 31.6 g/dl (32.0-37.0); MEAN CORPUSCULAR VOLUME 103.6 fl (82.0-101.0); MEAN PLATELET VOLUME 10.2 fl (7.4-10.4); MONOCYTE # 1.3 10^3/ul (0.3-0.9); MONOCYTES % 13.1 % (0.0-11.0); NEUTROPHIL # 6.1 10^3/ul (1.6-7.5); NEUTROPHILS % 63.7 % (39.0-77.0); PLATELET COUNT 409 10^3/UL (140-415); RED BLOOD COUNT 2.81 10^6/ul (4.70-6.10); RED CELL DISTRIBUTION WIDTH 14.8 % (11.5-14.5)
[2017-06-07 06:01] LABS: ANION GAP 17 (8-16); BLOOD UREA NITROGEN 48 mg/dl (7-20); CALCIUM 8.2 mg/dl (8.4-10.2); CARBON DIOXIDE 28 mmol/L (21-31); CHLORIDE 95 mmol/L (97-110); CREATININE 6.17 mg/dl (0.61-1.24); GLUCOSE 98 mg/dl (70-220); POTASSIUM 4.4 mmol/L (3.5-5.1); SODIUM 136 mmol/L (135-144)
[2017-06-07 06:02] LABS: PT RATIO 1.3
[2017-06-07 06:27] LABS: PROTIME 17.2 Sec (12.2-14.2)
[2017-06-07] MEDS: SEVELAMER 800 MG TAB PO ×3 (08:00→17:57)
[2017-06-07] MEDS: INSULIN ASPART [NOVOLOG] 3 ML PEN SC ×4 (08:00→21:00)
[2017-06-07] MEDS: ENOXAPARIN 30 MG/0.3 ML SYG SC (08:14)
[2017-06-07] MEDS: ASPIRIN (EC) 81 MG TAB PO (08:15)
[2017-06-07] MEDS: LACTOBACILLUS RHAMNOSUS CAP PO ×2 (08:15→22:13)
[2017-06-07] MEDS: PENTOXIFYLLINE (SR) 400 MG TAB PO ×3 (08:15→22:13)
[2017-06-07] MEDS: MULTIVIT/CA CARB/B CMPLX/FA TAB PO (08:15)
[2017-06-07] MEDS: CILOSTAZOL 100 MG TAB PO ×2 (08:15→22:13)
[2017-06-07] MEDS: GABAPENTIN 300 MG CAP PO ×3 (08:15→22:13)
[2017-06-07] MEDS: POLYETHYLENE GLYCOL 17 GM PACKET PO ×2 (08:15→22:25)
[2017-06-07] MEDS: METOPROLOL 50 MG TAB PO ×2 (08:20→22:13)
[2017-06-07] MEDS: ERTAPENEM SODIUM 0.5 GM in SOD CHLORIDE 0.9% 100 ML IVPB (12:46)
[2017-06-07] MEDS: OXYCODONE/ACETAMINOPHEN (5/325) TAB PO (22:17)
[2017-06-08] MEDS: ACCU-CHEK XX (02:00)
[2017-06-08] MEDS: HYDROCODONE/APAP (5/325) TAB PO ×2 (04:59→13:26)
[2017-06-08] MEDS: PANTOPRAZOLE (EC) 40 MG TAB PO (04:59)
[2017-06-08] MEDS: INSULIN ASPART [NOVOLOG] 3 ML PEN SC ×4 (08:00→20:14)
[2017-06-08] MEDS: CILOSTAZOL 100 MG TAB PO ×2 (09:23→20:13)
[2017-06-08] MEDS: GABAPENTIN 300 MG CAP PO ×3 (09:23→20:13)
[2017-06-08] MEDS: MULTIVIT/CA CARB/B CMPLX/FA TAB PO (09:23)
[2017-06-08] MEDS: SEVELAMER 800 MG TAB PO ×3 (09:23→17:38)
[2017-06-08] MEDS: POLYETHYLENE GLYCOL 17 GM PACKET PO ×2 (09:23→20:12)
[2017-06-08] MEDS: LACTOBACILLUS RHAMNOSUS CAP PO ×2 (09:23→22:08)
[2017-06-08] MEDS: PENTOXIFYLLINE (SR) 400 MG TAB PO ×3 (09:23→20:14)
[2017-06-08] MEDS: ASPIRIN (EC) 81 MG TAB PO (09:23)
[2017-06-08] MEDS: OXYCODONE/ACETAMINOPHEN (5/325) TAB PO (09:24)
[2017-06-08] MEDS: METOPROLOL 50 MG TAB PO ×2 (09:24→20:13)
[2017-06-08] MEDS: ENOXAPARIN 30 MG/0.3 ML SYG SC (09:27)
[2017-06-08] MEDS: ERTAPENEM SODIUM 0.5 GM in SOD CHLORIDE 0.9% 100 ML IVPB (13:03)
[2017-06-08] MEDS: DAPTOMYCIN IVPB (18:22)
[2017-06-08] MEDS: SOD CHLORIDE 0.9% IVPB (18:22)
[2017-06-09] MEDS: ACCU-CHEK XX (01:05)
[2017-06-09] MEDS: PANTOPRAZOLE (EC) 40 MG TAB PO (05:18)
[2017-06-09 06:16] LABS: ADD MAN DIFF? NO
[2017-06-09 06:38] LABS: BASOPHIL # 0.1 10^3/ul (0.0-0.1); BASOPHILS % 0.6 % (0.0-2.0); EOSINOPHILS # 0.4 10^3/ul (0.0-0.5); EOSINOPHILS % 2.6 % (0.0-7.0); HEMATOCRIT 26.7 % (42.0-52.0); HEMOGLOBIN 8.5 g/dl (14.0-18.0); LYMPHOCYTES # 2.1 10^3/ul (0.8-2.9); LYMPHOCYTES % 14.4 % (15.0-51.0); MEAN CORPUSCULAR HEMOGLOBIN 32.8 pg (29.0-33.0); MEAN CORPUSCULAR HGB CONC 31.8 g/dl (32.0-37.0); MEAN CORPUSCULAR VOLUME 103.1 fl (82.0-101.0); MEAN PLATELET VOLUME 10.8 fl (7.4-10.4); MONOCYTE # 1.3 10^3/ul (0.3-0.9); MONOCYTES % 8.7 % (0.0-11.0); NEUTROPHIL # 10.6 10^3/ul (1.6-7.5); NEUTROPHILS % 73.2 % (39.0-77.0); PLATELET COUNT 405 10^3/UL (140-415); RED BLOOD COUNT 2.59 10^6/ul (4.70-6.10); RED CELL DISTRIBUTION WIDTH 14.8 % (11.5-14.5)
[2017-06-09 06:38] LABS: WHITE BLOOD COUNT 14.4 10^3/ul (4.8-10.8)
[2017-06-09 07:17] LABS: ANION GAP 24 (8-16); BLOOD UREA NITROGEN 85 mg/dl (7-20); CALCIUM 8.5 mg/dl (8.4-10.2); CARBON DIOXIDE 19 mmol/L (21-31); CHLORIDE 99 mmol/L (97-110); CREATININE 9.88 mg/dl (0.61-1.24); GLUCOSE 70 mg/dl (70-220); SODIUM 135 mmol/L (135-144)
[2017-06-09 07:46] LABS: POTASSIUM 6.9 mmol/L (3.5-5.1)
[2017-06-09] MEDS: INSULIN ASPART [NOVOLOG] 3 ML PEN SC ×4 (08:00→20:21)
[2017-06-09] MEDS: ASPIRIN (EC) 81 MG TAB PO (08:43)
[2017-06-09] MEDS: ENOXAPARIN 30 MG/0.3 ML SYG SC (08:43)
[2017-06-09] MEDS: METOPROLOL 50 MG TAB PO ×2 (08:44→20:23)
[2017-06-09] MEDS: LACTOBACILLUS RHAMNOSUS CAP PO ×2 (08:52→20:22)
[2017-06-09] MEDS: GABAPENTIN 300 MG CAP PO ×3 (08:52→20:22)
[2017-06-09] MEDS: CILOSTAZOL 100 MG TAB PO ×2 (08:52→20:25)
[2017-06-09] MEDS: POLYETHYLENE GLYCOL 17 GM PACKET PO ×2 (08:52→20:21)
[2017-06-09] MEDS: SEVELAMER 800 MG TAB PO ×3 (08:52→17:35)
[2017-06-09] MEDS: PENTOXIFYLLINE (SR) 400 MG TAB PO ×3 (10:59→20:22)
[2017-06-09] MEDS: MULTIVIT/CA CARB/B CMPLX/FA TAB PO (10:59)
[2017-06-09] MEDS: AMLODIPINE 5 MG TAB PO ×2 (11:00→20:23)
[2017-06-09 12:45] LABS: ANION GAP 17 (8-16); BLOOD UREA NITROGEN 40 mg/dl (7-20); CARBON DIOXIDE 27 mmol/L (21-31); CHLORIDE 102 mmol/L (97-110); CREATININE 5.75 mg/dl (0.61-1.24); GLUCOSE 83 mg/dl (70-220); SODIUM 141 mmol/L (135-144)
[2017-06-09] MEDS: ERTAPENEM SODIUM 0.5 GM in SOD CHLORIDE 0.9% 100 ML IVPB (13:12)
[2017-06-10] MEDS: ACCU-CHEK XX (02:00)
[2017-06-10 05:40] LABS: ADD MAN DIFF? NO
[2017-06-10 05:48] LABS: WHITE BLOOD COUNT 10.1 10^3/ul (4.8-10.8)
[2017-06-10 05:48] LABS: BASOPHIL # 0.1 10^3/ul (0.0-0.1); BASOPHILS % 0.7 % (0.0-2.0); EOSINOPHILS # 0.4 10^3/ul (0.0-0.5); EOSINOPHILS % 4.2 % (0.0-7.0); HEMOGLOBIN 8.3 g/dl (14.0-18.0); LYMPHOCYTES % 19.3 % (15.0-51.0); MEAN CORPUSCULAR HEMOGLOBIN 33.3 pg (29.0-33.0); MEAN CORPUSCULAR HGB CONC 31.9 g/dl (32.0-37.0); MEAN CORPUSCULAR VOLUME 104.4 fl (82.0-101.0); MEAN PLATELET VOLUME 10.6 fl (7.4-10.4); MONOCYTE # 1.1 10^3/ul (0.3-0.9); NEUTROPHIL # 6.5 10^3/ul (1.6-7.5); NEUTROPHILS % 64.3 % (39.0-77.0); PLATELET COUNT 398 10^3/UL (140-415); RED BLOOD COUNT 2.49 10^6/ul (4.70-6.10); RED CELL DISTRIBUTION WIDTH 14.7 % (11.5-14.5)
[2017-06-10 06:23] LABS: ANION GAP 17 (8-16); BLOOD UREA NITROGEN 73 mg/dl (7-20); CALCIUM 8.8 mg/dl (8.4-10.2); CARBON DIOXIDE 24 mmol/L (21-31); CHLORIDE 106 mmol/L (97-110); CREATININE 7.06 mg/dl (0.61-1.24); GLUCOSE 79 mg/dl (70-220); MAGNESIUM 2.3 mg/dl (1.7-2.5); POTASSIUM 5.9 mmol/L (3.5-5.1); SODIUM 141 mmol/L (135-144)
[2017-06-10] MEDS: PANTOPRAZOLE (EC) 40 MG TAB PO (06:23)
[2017-06-10 06:29] LABS: CREATINE KINASE 108 IU/L (23-200)
[2017-06-10] MEDS: HYDROCODONE/APAP (5/325) TAB PO ×2 (06:32→22:17)
[2017-06-10] MEDS: INSULIN ASPART [NOVOLOG] 3 ML PEN SC ×4 (08:00→21:00)
[2017-06-10] MEDS: METOPROLOL 50 MG TAB PO ×2 (08:09→22:15)
[2017-06-10] MEDS: AMLODIPINE 5 MG TAB PO (08:10)
[2017-06-10] MEDS: MULTIVIT/CA CARB/B CMPLX/FA TAB PO (08:14)
[2017-06-10] MEDS: GABAPENTIN 300 MG CAP PO ×3 (08:14→22:16)
[2017-06-10] MEDS: PENTOXIFYLLINE (SR) 400 MG TAB PO ×3 (08:14→22:16)
[2017-06-10] MEDS: ASPIRIN (EC) 81 MG TAB PO (08:14)
[2017-06-10] MEDS: CILOSTAZOL 100 MG TAB PO ×2 (08:14→22:15)
[2017-06-10] MEDS: POLYETHYLENE GLYCOL 17 GM PACKET PO ×2 (08:14→22:18)
[2017-06-10] MEDS: LACTOBACILLUS RHAMNOSUS CAP PO ×2 (08:14→21:00)
[2017-06-10] MEDS: SEVELAMER 800 MG TAB PO ×3 (08:14→17:25)
[2017-06-10] MEDS: ENOXAPARIN 30 MG/0.3 ML SYG SC (08:15)
[2017-06-10] MEDS: NA POLYST SULFON 15 GM/60 ML BTL PO (09:10)
[2017-06-10] MEDS: ERTAPENEM SODIUM 0.5 GM in SOD CHLORIDE 0.9% 100 ML IVPB (13:09)
[2017-06-10] MEDS: SOD CHLORIDE 0.9% IVPB (17:43)
[2017-06-10] MEDS: DAPTOMYCIN IVPB (17:43)
[2017-06-11] MEDS: ACCU-CHEK XX (02:00)
[2017-06-11] MEDS: PANTOPRAZOLE (EC) 40 MG TAB PO (05:14)
[2017-06-11 06:20] LABS: ADD MAN DIFF? NO
[2017-06-11 06:29] LABS: ABNORMAL IP MESSAGE 1; BASOPHIL # 0.1 10^3/ul (0.0-0.1); BASOPHILS % 0.6 % (0.0-2.0); EOSINOPHILS # 0.4 10^3/ul (0.0-0.5); EOSINOPHILS % 3.5 % (0.0-7.0); HEMATOCRIT 26.3 % (42.0-52.0); HEMOGLOBIN 8.2 g/dl (14.0-18.0); LYMPHOCYTES # 2.8 10^3/ul (0.8-2.9); LYMPHOCYTES % 24.5 % (15.0-51.0); MEAN CORPUSCULAR HEMOGLOBIN 32.8 pg (29.0-33.0); MEAN CORPUSCULAR HGB CONC 31.2 g/dl (32.0-37.0); MEAN CORPUSCULAR VOLUME 105.2 fl (82.0-101.0); MONOCYTE # 1.5 10^3/ul (0.3-0.9); MONOCYTES % 13.7 % (0.0-11.0); NEUTROPHIL # 6.4 10^3/ul (1.6-7.5); NEUTROPHILS % 57.2 % (39.0-77.0); PLATELET COUNT 411 10^3/UL (140-415); POSITIVE DIFF @See below; RED CELL DISTRIBUTION WIDTH 14.8 % (11.5-14.5)
[2017-06-11 06:29] LABS: WHITE BLOOD COUNT 11.3 10^3/ul (4.8-10.8)
[2017-06-11 07:04] LABS: ANION GAP 19 (8-16); BLOOD UREA NITROGEN 100 mg/dl (7-20); CALCIUM 8.3 mg/dl (8.4-10.2); CARBON DIOXIDE 25 mmol/L (21-31); CHLORIDE 102 mmol/L (97-110); CREATININE 9.37 mg/dl (0.61-1.24); GLUCOSE 85 mg/dl (70-220); POTASSIUM 5.4 mmol/L (3.5-5.1); SODIUM 141 mmol/L (135-144)
[2017-06-11] MEDS: INSULIN ASPART [NOVOLOG] 3 ML PEN SC ×4 (08:00→21:00)
[2017-06-11] MEDS: SEVELAMER 800 MG TAB PO ×3 (09:33→17:52)
[2017-06-11] MEDS: PENTOXIFYLLINE (SR) 400 MG TAB PO ×3 (09:34→21:10)
[2017-06-11] MEDS: GABAPENTIN 300 MG CAP PO ×3 (09:34→21:10)
[2017-06-11] MEDS: CILOSTAZOL 100 MG TAB PO ×2 (09:34→21:10)
[2017-06-11] MEDS: MULTIVIT/CA CARB/B CMPLX/FA TAB PO (09:34)
[2017-06-11] MEDS: ASPIRIN (EC) 81 MG TAB PO (09:34)
[2017-06-11] MEDS: ENOXAPARIN 30 MG/0.3 ML SYG SC (09:35)
[2017-06-11] MEDS: METOPROLOL 50 MG TAB PO ×2 (09:35→21:12)
[2017-06-11] MEDS: POLYETHYLENE GLYCOL 17 GM PACKET PO ×2 (09:36→21:12)
[2017-06-11] MEDS: AMLODIPINE 5 MG TAB PO (09:36)
[2017-06-11] MEDS: LACTOBACILLUS RHAMNOSUS CAP PO ×2 (09:45→21:10)
[2017-06-11] MEDS: ERTAPENEM SODIUM 0.5 GM in SOD CHLORIDE 0.9% 100 ML IVPB (12:19)
[2017-06-11] MEDS ORDERED: NA POLYST SULFON 15 GM/60 ML BTL PO (14:30)
[2017-06-11] MEDS: ACETAMINOPHEN 325 MG TAB PO (21:10)
[2017-06-11] MEDS: HYDROCODONE/APAP (5/325) TAB PO (21:11)
[2017-06-12] MEDS: ACCU-CHEK XX (02:00)
[2017-06-12 05:28] LABS: ADD MAN DIFF? NO
[2017-06-12 05:31] LABS: BASOPHIL # 0.1 10^3/ul (0.0-0.1); BASOPHILS % 0.5 % (0.0-2.0); EOSINOPHILS # 0.4 10^3/ul (0.0-0.5); EOSINOPHILS % 3.4 % (0.0-7.0); HEMATOCRIT 28.2 % (42.0-52.0); HEMOGLOBIN 8.8 g/dl (14.0-18.0); LYMPHOCYTES # 2.8 10^3/ul (0.8-2.9); LYMPHOCYTES % 26.4 % (15.0-51.0); MEAN CORPUSCULAR HEMOGLOBIN 32.7 pg (29.0-33.0); MEAN CORPUSCULAR HGB CONC 31.2 g/dl (32.0-37.0); MEAN CORPUSCULAR VOLUME 104.8 fl (82.0-101.0); MEAN PLATELET VOLUME 10.7 fl (7.4-10.4); MONOCYTE # 1.3 10^3/ul (0.3-0.9); MONOCYTES % 12.1 % (0.0-11.0); NEUTROPHIL # 6.1 10^3/ul (1.6-7.5); NEUTROPHILS % 57.1 % (39.0-77.0); PLATELET COUNT 428 10^3/UL (140-415); RED BLOOD COUNT 2.69 10^6/ul (4.70-6.10); RED CELL DISTRIBUTION WIDTH 14.9 % (11.5-14.5)
[2017-06-12 05:31] LABS: WHITE BLOOD COUNT 10.6 10^3/ul (4.8-10.8)
[2017-06-12] MEDS: PANTOPRAZOLE (EC) 40 MG TAB PO (05:36)
[2017-06-12 06:13] LABS: ANION GAP 14 (8-16); BLOOD UREA NITROGEN 75 mg/dl (7-20); CALCIUM 8.7 mg/dl (8.4-10.2); CARBON DIOXIDE 30 mmol/L (21-31); CHLORIDE 104 mmol/L (97-110); CREATININE 7.09 mg/dl (0.61-1.24); GLUCOSE 85 mg/dl (70-220); POTASSIUM 4.2 mmol/L (3.5-5.1); SODIUM 144 mmol/L (135-144)
[2017-06-12] MEDS: HYDROCODONE/APAP (5/325) TAB PO ×2 (07:00→17:35)
[2017-06-12] MEDS: INSULIN ASPART [NOVOLOG] 3 ML PEN SC ×4 (07:55→20:30)
[2017-06-12] MEDS: ASPIRIN (EC) 81 MG TAB PO (08:53)
[2017-06-12] MEDS: PENTOXIFYLLINE (SR) 400 MG TAB PO ×3 (08:53→20:20)
[2017-06-12] MEDS: GABAPENTIN 300 MG CAP PO ×3 (08:53→20:20)
[2017-06-12] MEDS: LACTOBACILLUS RHAMNOSUS CAP PO ×2 (08:53→20:20)
[2017-06-12] MEDS: MULTIVIT/CA CARB/B CMPLX/FA TAB PO (08:53)
[2017-06-12] MEDS: AMLODIPINE 5 MG TAB PO (08:53)
[2017-06-12] MEDS: POLYETHYLENE GLYCOL 17 GM PACKET PO ×2 (08:54→20:20)
[2017-06-12] MEDS: METOPROLOL 50 MG TAB PO ×2 (08:54→20:21)
[2017-06-12] MEDS: ENOXAPARIN 30 MG/0.3 ML SYG SC (08:57)
[2017-06-12] MEDS: CILOSTAZOL 100 MG TAB PO ×2 (08:58→20:21)
[2017-06-12] MEDS: SEVELAMER 800 MG TAB PO ×3 (08:58→17:29)
[2017-06-12] MEDS: ERTAPENEM SODIUM 0.5 GM in SOD CHLORIDE 0.9% 100 ML IVPB (12:46)
[2017-06-12] MEDS: DAPTOMYCIN IVPB (17:30)
[2017-06-12] MEDS: SOD CHLORIDE 0.9% IVPB (17:30)
[2017-06-12] MEDS: ACETAMINOPHEN 325 MG TAB PO (20:20)
[2017-06-13] MEDS: ACCU-CHEK XX (01:00)
[2017-06-13] MEDS: PANTOPRAZOLE (EC) 40 MG TAB PO (05:10)
[2017-06-13] MEDS: INSULIN ASPART [NOVOLOG] 3 ML PEN SC ×4 (08:00→20:20)
[2017-06-13] MEDS: CILOSTAZOL 100 MG TAB PO ×2 (08:33→20:21)
[2017-06-13] MEDS: POLYETHYLENE GLYCOL 17 GM PACKET PO ×2 (08:33→20:21)
[2017-06-13] MEDS: PENTOXIFYLLINE (SR) 400 MG TAB PO ×3 (08:33→20:21)
[2017-06-13] MEDS: MULTIVIT/CA CARB/B CMPLX/FA TAB PO (08:33)
[2017-06-13] MEDS: LACTOBACILLUS RHAMNOSUS CAP PO ×2 (08:33→20:21)
[2017-06-13] MEDS: ASPIRIN (EC) 81 MG TAB PO (08:33)
[2017-06-13] MEDS: SEVELAMER 800 MG TAB PO ×3 (08:33→17:19)
[2017-06-13] MEDS: GABAPENTIN 300 MG CAP PO ×3 (08:33→20:22)
[2017-06-13] MEDS: ENOXAPARIN 30 MG/0.3 ML SYG SC (08:36)
[2017-06-13] MEDS: AMLODIPINE 5 MG TAB PO (08:43)
[2017-06-13] MEDS: METOPROLOL 50 MG TAB PO ×2 (08:43→20:22)
[2017-06-13] MEDS: HYDROCODONE/APAP (5/325) TAB PO ×2 (15:49→21:55)
[2017-06-13] MEDS: ERTAPENEM SODIUM 0.5 GM in SOD CHLORIDE 0.9% 100 ML IVPB (15:50)
[2017-06-14] MEDS: ACCU-CHEK XX (02:00)
[2017-06-14] MEDS: ACETAMINOPHEN 325 MG TAB PO (04:25)
[2017-06-14] MEDS: PANTOPRAZOLE (EC) 40 MG TAB PO (05:55)
[2017-06-14] MEDS: INSULIN ASPART [NOVOLOG] 3 ML PEN SC ×4 (07:56→21:00)
[2017-06-14] MEDS: LACTOBACILLUS RHAMNOSUS CAP PO ×2 (08:19→21:35)
[2017-06-14] MEDS: ASPIRIN (EC) 81 MG TAB PO (08:19)
[2017-06-14] MEDS: GABAPENTIN 300 MG CAP PO ×3 (08:19→21:35)
[2017-06-14] MEDS: METOPROLOL 50 MG TAB PO ×2 (08:24→21:35)
[2017-06-14] MEDS: MULTIVIT/CA CARB/B CMPLX/FA TAB PO (08:24)
[2017-06-14] MEDS: POLYETHYLENE GLYCOL 17 GM PACKET PO ×2 (08:25→21:35)
[2017-06-14] MEDS: SEVELAMER 800 MG TAB PO ×3 (08:25→17:25)
[2017-06-14] MEDS: AMLODIPINE 5 MG TAB PO (08:25)
[2017-06-14] MEDS: PENTOXIFYLLINE (SR) 400 MG TAB PO ×3 (08:25→21:35)
[2017-06-14] MEDS: ENOXAPARIN 30 MG/0.3 ML SYG SC (08:26)
[2017-06-14] MEDS: CILOSTAZOL 100 MG TAB PO ×2 (08:29→21:35)
[2017-06-14] MEDS: ERTAPENEM SODIUM 0.5 GM in SOD CHLORIDE 0.9% 100 ML IVPB (12:25)
[2017-06-14] MEDS: HYDROCODONE/APAP (5/325) TAB PO (17:29)
[2017-06-14] MEDS: SOD CHLORIDE 0.9% IVPB (17:30)
[2017-06-14] MEDS: DAPTOMYCIN IVPB (17:30)
[2017-06-15] MEDS: ACCU-CHEK XX (02:00)
[2017-06-15] MEDS: PANTOPRAZOLE (EC) 40 MG TAB PO (05:32)
[2017-06-15] MEDS: INSULIN ASPART [NOVOLOG] 3 ML PEN SC ×4 (08:00→21:00)
[2017-06-15] MEDS: SEVELAMER 800 MG TAB PO ×4 (08:21→17:38)
[2017-06-15] MEDS: PENTOXIFYLLINE (SR) 400 MG TAB PO ×3 (09:03→20:43)
[2017-06-15] MEDS: LACTOBACILLUS RHAMNOSUS CAP PO ×2 (09:03→20:43)
[2017-06-15] MEDS: CILOSTAZOL 100 MG TAB PO ×2 (09:03→20:43)
[2017-06-15] MEDS: METOPROLOL 50 MG TAB PO ×2 (09:03→20:44)
[2017-06-15] MEDS: AMLODIPINE 5 MG TAB PO (09:03)
[2017-06-15] MEDS: GABAPENTIN 300 MG CAP PO ×3 (09:03→20:43)
[2017-06-15] MEDS: HYDROCODONE/APAP (5/325) TAB PO ×2 (09:04→14:54)
[2017-06-15] MEDS: MULTIVIT/CA CARB/B CMPLX/FA TAB PO (09:04)
[2017-06-15] MEDS: ASPIRIN (EC) 81 MG TAB PO (09:04)
[2017-06-15] MEDS: ENOXAPARIN 30 MG/0.3 ML SYG SC (09:06)
[2017-06-15] MEDS: POLYETHYLENE GLYCOL 17 GM PACKET PO ×2 (09:08→20:44)
[2017-06-15] MEDS: ERTAPENEM SODIUM 0.5 GM in SOD CHLORIDE 0.9% 100 ML IVPB (12:58)
[2017-06-16] MEDS: HYDROCODONE/APAP (5/325) TAB PO ×2 (01:54→10:37)
[2017-06-16] MEDS: ACCU-CHEK XX (02:00)
[2017-06-16] MEDS: PANTOPRAZOLE (EC) 40 MG TAB PO (05:09)
[2017-06-16] MEDS: INSULIN ASPART [NOVOLOG] 3 ML PEN SC ×4 (08:00→20:48)
[2017-06-16] MEDS: PENTOXIFYLLINE (SR) 400 MG TAB PO ×3 (10:36→20:37)
[2017-06-16] MEDS: POLYETHYLENE GLYCOL 17 GM PACKET PO ×2 (10:36→20:36)
[2017-06-16] MEDS: SEVELAMER 800 MG TAB PO ×3 (10:36→17:32)
[2017-06-16] MEDS: CILOSTAZOL 100 MG TAB PO ×2 (10:37→20:38)
[2017-06-16] MEDS: LACTOBACILLUS RHAMNOSUS CAP PO ×2 (10:37→20:37)
[2017-06-16] MEDS: MULTIVIT/CA CARB/B CMPLX/FA TAB PO (10:38)
[2017-06-16] MEDS: GABAPENTIN 300 MG CAP PO ×3 (10:38→20:37)
[2017-06-16] MEDS: ASPIRIN (EC) 81 MG TAB PO (10:38)
[2017-06-16] MEDS: ENOXAPARIN 30 MG/0.3 ML SYG SC (10:38)
[2017-06-16] MEDS: AMLODIPINE 5 MG TAB PO (10:38)
[2017-06-16] MEDS: METOPROLOL 50 MG TAB PO ×2 (10:42→20:37)
[2017-06-16] MEDS ORDERED: GENTAMICIN IV PER PHARMACY XX (11:00)
[2017-06-16] MEDS: GENTAMICIN 100 MG/50 ML NS IVPB (13:24)
[2017-06-16] MEDS: AMPICILLIN 1 GM/NS (PMX) 50 ML IVPB (17:32)
[2017-06-17] MEDS: ACCU-CHEK XX (02:00)
[2017-06-17] MEDS: AMPICILLIN 1 GM/NS (PMX) 50 ML IVPB ×2 (03:19→15:05)
[2017-06-17] MEDS: PANTOPRAZOLE (EC) 40 MG TAB PO (05:17)
[2017-06-17] MEDS: INSULIN ASPART [NOVOLOG] 3 ML PEN SC ×4 (08:00→20:59)
[2017-06-17] MEDS: SEVELAMER 800 MG TAB PO ×3 (08:34→17:36)
[2017-06-17] MEDS: LACTOBACILLUS RHAMNOSUS CAP PO ×2 (08:34→20:56)
[2017-06-17] MEDS: CILOSTAZOL 100 MG TAB PO ×2 (08:34→20:55)
[2017-06-17] MEDS: MULTIVIT/CA CARB/B CMPLX/FA TAB PO (08:35)
[2017-06-17] MEDS: GABAPENTIN 300 MG CAP PO ×2 (08:35→12:13)
[2017-06-17] MEDS: ASPIRIN (EC) 81 MG TAB PO (08:35)
[2017-06-17] MEDS: PENTOXIFYLLINE (SR) 400 MG TAB PO ×3 (08:35→20:59)
[2017-06-17] MEDS: AMLODIPINE 5 MG TAB PO (08:35)
[2017-06-17] MEDS: METOPROLOL 50 MG TAB PO ×2 (08:36→20:58)
[2017-06-17] MEDS: POLYETHYLENE GLYCOL 17 GM PACKET PO ×2 (08:36→20:55)
[2017-06-17] MEDS: ENOXAPARIN 30 MG/0.3 ML SYG SC (08:40)
[2017-06-17] MEDS: OXYCODONE/ACETAMINOPHEN (10/325) TAB PO (09:34)
[2017-06-17 11:33] LABS: MAGNESIUM 2.6 mg/dl (1.7-2.5)
[2017-06-17] MEDS: PREGABALIN 50 MG CAP PO ×2 (13:00→20:56)
[2017-06-17] MEDS: morphine (ER) 15 MG TAB PO ×2 (15:05→20:56)
[2017-06-17] MEDS: morphine 2 MG INJ IV (17:51)
[2017-06-17] MEDS: LORAZEPAM 2 MG INJ IV (18:45)
[2017-06-18] MEDS: ACCU-CHEK XX (02:00)
[2017-06-18] MEDS: AMPICILLIN 1 GM/NS (PMX) 50 ML IVPB ×2 (02:32→15:04)
[2017-06-18] MEDS: morphine 2 MG INJ IV (02:57)
[2017-06-18] MEDS: PANTOPRAZOLE (EC) 40 MG TAB PO (05:15)
[2017-06-18 07:15] LABS: ADD MAN DIFF? NO
[2017-06-18 07:20] LABS: WHITE BLOOD COUNT 9.9 10^3/ul (4.8-10.8)
[2017-06-18 07:20] LABS: BASOPHIL # 0.1 10^3/ul (0.0-0.1); BASOPHILS % 0.5 % (0.0-2.0); EOSINOPHILS # 0.3 10^3/ul (0.0-0.5); EOSINOPHILS % 3.2 % (0.0-7.0); HEMATOCRIT 25.5 % (42.0-52.0); HEMOGLOBIN 8.2 g/dl (14.0-18.0); LYMPHOCYTES # 2.6 10^3/ul (0.8-2.9); LYMPHOCYTES % 25.8 % (15.0-51.0); MEAN CORPUSCULAR HEMOGLOBIN 32.8 pg (29.0-33.0); MEAN CORPUSCULAR HGB CONC 32.2 g/dl (32.0-37.0); MEAN PLATELET VOLUME 11.2 fl (7.4-10.4); MONOCYTE # 1.4 10^3/ul (0.3-0.9); NEUTROPHIL # 5.6 10^3/ul (1.6-7.5); NEUTROPHILS % 56.1 % (39.0-77.0); PLATELET COUNT 403 10^3/UL (140-415); RED CELL DISTRIBUTION WIDTH 14.5 % (11.5-14.5)
[2017-06-18 07:51] LABS: ANION GAP 19 (8-16); BLOOD UREA NITROGEN 104 mg/dl (7-20); CALCIUM 8.5 mg/dl (8.4-10.2); CARBON DIOXIDE 27 mmol/L (21-31); CHLORIDE 93 mmol/L (97-110); CREATININE 8.43 mg/dl (0.61-1.24); GLUCOSE 84 mg/dl (70-220); POTASSIUM 5.5 mmol/L (3.5-5.1); SODIUM 133 mmol/L (135-144)
[2017-06-18] MEDS: INSULIN ASPART [NOVOLOG] 3 ML PEN SC ×4 (08:00→21:00)
[2017-06-18] MEDS: AMLODIPINE 5 MG TAB PO (09:00)
[2017-06-18] MEDS: METOPROLOL 50 MG TAB PO ×2 (09:00→21:29)
[2017-06-18] MEDS: ASPIRIN (EC) 81 MG TAB PO (09:55)
[2017-06-18] MEDS: MULTIVIT/CA CARB/B CMPLX/FA TAB PO (09:55)
[2017-06-18] MEDS: PREGABALIN 50 MG CAP PO ×3 (09:55→21:28)
[2017-06-18] MEDS: SEVELAMER 800 MG TAB PO ×3 (09:55→17:35)
[2017-06-18] MEDS: CILOSTAZOL 100 MG TAB PO ×2 (09:56→21:30)
[2017-06-18] MEDS: LACTOBACILLUS RHAMNOSUS CAP PO ×2 (09:56→21:28)
[2017-06-18] MEDS: PENTOXIFYLLINE (SR) 400 MG TAB PO ×3 (09:56→21:28)
[2017-06-18] MEDS: morphine (ER) 15 MG TAB PO ×2 (09:57→21:28)
[2017-06-18] MEDS: POLYETHYLENE GLYCOL 17 GM PACKET PO ×2 (10:03→21:29)
[2017-06-18] MEDS: ENOXAPARIN 30 MG/0.3 ML SYG SC (10:04)
[2017-06-18] MEDS: GENTAMICIN 80 MG/NS (PMX) 50 ML IVPB (16:20)
[2017-06-18] MEDS: DOCUSATE SODIUM 100 MG CAP PO (21:28)
[2017-06-19] MEDS: ACCU-CHEK XX (01:55)
[2017-06-19] MEDS: morphine 2 MG INJ IV ×2 (02:41→12:05)
[2017-06-19] MEDS: AMPICILLIN 1 GM/NS (PMX) 50 ML IVPB ×2 (02:41→15:02)
[2017-06-19] MEDS: PANTOPRAZOLE (EC) 40 MG TAB PO (06:02)
[2017-06-19 06:21] LABS: ADD MAN DIFF? NO
[2017-06-19 06:25] LABS: WHITE BLOOD COUNT 9.6 10^3/ul (4.8-10.8)
[2017-06-19 06:25] LABS: BASOPHIL # 0.1 10^3/ul (0.0-0.1); BASOPHILS % 0.6 % (0.0-2.0); EOSINOPHILS # 0.3 10^3/ul (0.0-0.5); EOSINOPHILS % 2.7 % (0.0-7.0); HEMATOCRIT 27.2 % (42.0-52.0); HEMOGLOBIN 8.7 g/dl (14.0-18.0); LYMPHOCYTES # 2.5 10^3/ul (0.8-2.9); LYMPHOCYTES % 25.9 % (15.0-51.0); MEAN CORPUSCULAR HEMOGLOBIN 32.7 pg (29.0-33.0); MEAN CORPUSCULAR VOLUME 102.3 fl (82.0-101.0); MEAN PLATELET VOLUME 11.1 fl (7.4-10.4); MONOCYTE # 1.3 10^3/ul (0.3-0.9); MONOCYTES % 13.8 % (0.0-11.0); NEUTROPHIL # 5.4 10^3/ul (1.6-7.5); NEUTROPHILS % 56.7 % (39.0-77.0); PLATELET COUNT 422 10^3/UL (140-415); RED BLOOD COUNT 2.66 10^6/ul (4.70-6.10); RED CELL DISTRIBUTION WIDTH 14.6 % (11.5-14.5)
[2017-06-19 06:54] LABS: ANION GAP 19 (8-16); BLOOD UREA NITROGEN 67 mg/dl (7-20); CALCIUM 8.4 mg/dl (8.4-10.2); CARBON DIOXIDE 30 mmol/L (21-31); CHLORIDE 94 mmol/L (97-110); GLUCOSE 95 mg/dl (70-220); POTASSIUM 5.5 mmol/L (3.5-5.1); SODIUM 137 mmol/L (135-144)
[2017-06-19] MEDS: DOCUSATE SODIUM 100 MG CAP PO ×2 (07:08→18:06)
[2017-06-19] MEDS: INSULIN ASPART [NOVOLOG] 3 ML PEN SC ×4 (08:00→21:00)
[2017-06-19] MEDS: PREGABALIN 50 MG CAP PO ×3 (08:08→21:20)
[2017-06-19] MEDS: CILOSTAZOL 100 MG TAB PO ×2 (08:08→21:22)
[2017-06-19] MEDS: MULTIVIT/CA CARB/B CMPLX/FA TAB PO (08:08)
[2017-06-19] MEDS: ENOXAPARIN 30 MG/0.3 ML SYG SC (08:08)
[2017-06-19] MEDS: PENTOXIFYLLINE (SR) 400 MG TAB PO ×3 (08:08→21:20)
[2017-06-19] MEDS: ASPIRIN (EC) 81 MG TAB PO (08:09)
[2017-06-19] MEDS: POLYETHYLENE GLYCOL 17 GM PACKET PO ×2 (08:09→21:21)
[2017-06-19] MEDS: LACTOBACILLUS RHAMNOSUS CAP PO ×2 (08:09→21:20)
[2017-06-19] MEDS: morphine (ER) 15 MG TAB PO ×2 (08:09→21:21)
[2017-06-19] MEDS: METOPROLOL 50 MG TAB PO ×2 (08:11→21:20)
[2017-06-19] MEDS: SEVELAMER 800 MG TAB PO ×3 (08:13→17:25)
[2017-06-19] MEDS: AMLODIPINE 5 MG TAB PO (09:19)
[2017-06-20] MEDS: ACCU-CHEK XX (02:00)
[2017-06-20] MEDS: AMPICILLIN 1 GM/NS (PMX) 50 ML IVPB ×2 (04:47→16:21)
[2017-06-20] MEDS: PANTOPRAZOLE (EC) 40 MG TAB PO (05:25)
[2017-06-20] MEDS: DOCUSATE SODIUM 100 MG CAP PO ×2 (06:05→18:30)
[2017-06-20 06:08] LABS: ADD MAN DIFF? NO
[2017-06-20 06:31] LABS: ABNORMAL IP MESSAGE 1; BASOPHIL # 0.1 10^3/ul (0.0-0.1); BASOPHILS % 0.5 % (0.0-2.0); EOSINOPHILS # 0.4 10^3/ul (0.0-0.5); EOSINOPHILS % 3.2 % (0.0-7.0); HEMATOCRIT 26.7 % (42.0-52.0); HEMOGLOBIN 8.6 g/dl (14.0-18.0); LYMPHOCYTES # 2.7 10^3/ul (0.8-2.9); LYMPHOCYTES % 23.7 % (15.0-51.0); MEAN CORPUSCULAR HGB CONC 32.2 g/dl (32.0-37.0); MEAN CORPUSCULAR VOLUME 102.3 fl (82.0-101.0); MEAN PLATELET VOLUME 11.2 fl (7.4-10.4); MONOCYTE # 1.6 10^3/ul (0.3-0.9); MONOCYTES % 13.8 % (0.0-11.0); NEUTROPHIL # 6.7 10^3/ul (1.6-7.5); NEUTROPHILS % 58.4 % (39.0-77.0); PLATELET COUNT 427 10^3/UL (140-415); POSITIVE DIFF @See below; RED BLOOD COUNT 2.61 10^6/ul (4.70-6.10); RED CELL DISTRIBUTION WIDTH 14.3 % (11.5-14.5)
[2017-06-20 06:31] LABS: WHITE BLOOD COUNT 11.5 10^3/ul (4.8-10.8)
[2017-06-20 07:10] LABS: ANION GAP 19 (8-16); BLOOD UREA NITROGEN 94 mg/dl (7-20); CALCIUM 8.4 mg/dl (8.4-10.2); CARBON DIOXIDE 29 mmol/L (21-31); CHLORIDE 91 mmol/L (97-110); CREATININE 8.55 mg/dl (0.61-1.24); GLUCOSE 97 mg/dl (70-220); SODIUM 133 mmol/L (135-144)
[2017-06-20 07:16] LABS: POTASSIUM 6.1 mmol/L (3.5-5.1)
[2017-06-20] MEDS: INSULIN ASPART [NOVOLOG] 3 ML PEN SC ×4 (08:00→20:28)
[2017-06-20] MEDS: SEVELAMER 800 MG TAB PO ×3 (08:18→17:28)
[2017-06-20] MEDS: ASPIRIN (EC) 81 MG TAB PO (08:19)
[2017-06-20] MEDS: CILOSTAZOL 100 MG TAB PO ×2 (08:19→20:36)
[2017-06-20] MEDS: LACTOBACILLUS RHAMNOSUS CAP PO ×2 (08:20→20:29)
[2017-06-20] MEDS: PREGABALIN 50 MG CAP PO ×3 (08:26→20:29)
[2017-06-20] MEDS: PENTOXIFYLLINE (SR) 400 MG TAB PO ×3 (08:26→20:30)
[2017-06-20] MEDS: POLYETHYLENE GLYCOL 17 GM PACKET PO ×2 (08:26→20:31)
[2017-06-20] MEDS: MULTIVIT/CA CARB/B CMPLX/FA TAB PO (08:26)
[2017-06-20] MEDS: morphine (ER) 15 MG TAB PO ×2 (08:27→20:29)
[2017-06-20] MEDS: ENOXAPARIN 30 MG/0.3 ML SYG SC (08:31)
[2017-06-20] MEDS: NA POLYST SULFON 15 GM/60 ML BTL PO (08:31)
[2017-06-20] MEDS: MEGESTROL (40 MG/ML) 10ML CUP PO ×2 (11:38→20:28)
[2017-06-20] MEDS: ACETAMINOPHEN 500 MG TAB PO ×2 (11:38→17:28)
[2017-06-20] MEDS: METOPROLOL 50 MG TAB PO ×2 (11:39→20:30)
[2017-06-20] MEDS: AMLODIPINE 5 MG TAB PO (11:39)
[2017-06-20] MEDS: GENTAMICIN 80 MG/NS (PMX) 50 ML IVPB (14:33)
[2017-06-21] MEDS: ACETAMINOPHEN 500 MG TAB PO ×4 (00:55→17:10)
[2017-06-21] MEDS: ACCU-CHEK XX (02:00)
[2017-06-21] MEDS: AMPICILLIN 1 GM/NS (PMX) 50 ML IVPB ×2 (03:45→14:12)
[2017-06-21] MEDS: PANTOPRAZOLE (EC) 40 MG TAB PO (05:30)
[2017-06-21 06:20] LABS: ADD MAN DIFF? NO
[2017-06-21 06:32] LABS: BASOPHILS % 0.3 % (0.0-2.0); EOSINOPHILS # 0.3 10^3/ul (0.0-0.5); EOSINOPHILS % 1.9 % (0.0-7.0); HEMATOCRIT 26.9 % (42.0-52.0); HEMOGLOBIN 8.5 g/dl (14.0-18.0); LYMPHOCYTES % 22.8 % (15.0-51.0); MEAN CORPUSCULAR HEMOGLOBIN 32.9 pg (29.0-33.0); MEAN CORPUSCULAR HGB CONC 31.6 g/dl (32.0-37.0); MEAN CORPUSCULAR VOLUME 104.3 fl (82.0-101.0); MEAN PLATELET VOLUME 11.5 fl (7.4-10.4); MONOCYTE # 1.3 10^3/ul (0.3-0.9); MONOCYTES % 9.7 % (0.0-11.0); NEUTROPHIL # 8.5 10^3/ul (1.6-7.5); NEUTROPHILS % 64.6 % (39.0-77.0); PLATELET COUNT 397 10^3/UL (140-415); RED BLOOD COUNT 2.58 10^6/ul (4.70-6.10); RED CELL DISTRIBUTION WIDTH 14.4 % (11.5-14.5)
[2017-06-21 06:32] LABS: WHITE BLOOD COUNT 13.1 10^3/ul (4.8-10.8)
[2017-06-21 07:06] LABS: ANION GAP 20 (8-16); BLOOD UREA NITROGEN 86 mg/dl (7-20); CALCIUM 8.3 mg/dl (8.4-10.2); CARBON DIOXIDE 26 mmol/L (21-31); CHLORIDE 95 mmol/L (97-110); CREATININE 7.25 mg/dl (0.61-1.24); GLUCOSE 99 mg/dl (70-220); MAGNESIUM 2.5 mg/dl (1.7-2.5); POTASSIUM 5.2 mmol/L (3.5-5.1); SODIUM 136 mmol/L (135-144)
[2017-06-21] MEDS: INSULIN ASPART [NOVOLOG] 3 ML PEN SC ×4 (08:00→21:00)
[2017-06-21] MEDS: AMLODIPINE 5 MG TAB PO (08:04)
[2017-06-21] MEDS: POLYETHYLENE GLYCOL 17 GM PACKET PO ×2 (08:04→21:07)
[2017-06-21] MEDS: ENOXAPARIN 30 MG/0.3 ML SYG SC (08:04)
[2017-06-21] MEDS: DOCUSATE SODIUM 100 MG CAP PO ×2 (08:04→18:27)
[2017-06-21] MEDS: METOPROLOL 50 MG TAB PO ×2 (08:05→21:14)
[2017-06-21] MEDS: morphine (ER) 15 MG TAB PO ×2 (08:05→21:12)
[2017-06-21] MEDS: PENTOXIFYLLINE (SR) 400 MG TAB PO ×3 (08:05→21:09)
[2017-06-21] MEDS: PREGABALIN 50 MG CAP PO ×3 (08:05→21:15)
[2017-06-21] MEDS: SEVELAMER 800 MG TAB PO ×3 (08:05→17:10)
[2017-06-21] MEDS: CILOSTAZOL 100 MG TAB PO ×2 (08:06→21:15)
[2017-06-21] MEDS: MULTIVIT/CA CARB/B CMPLX/FA TAB PO (08:06)
[2017-06-21] MEDS: ASPIRIN (EC) 81 MG TAB PO (08:06)
[2017-06-21] MEDS: LACTOBACILLUS RHAMNOSUS CAP PO ×2 (08:06→21:09)
[2017-06-21] MEDS: MEGESTROL (40 MG/ML) 10ML CUP PO ×2 (08:09→21:08)
[2017-06-21] MEDS: NA POLYST SULFON 15 GM/60 ML BTL PO (11:56)
[2017-06-21] MEDS: HEPARIN 5,000 UNIT/0.5 ML VIAL SC (21:14)
[2017-06-22] MEDS: ACETAMINOPHEN 500 MG TAB PO ×4 (00:19→17:13)
[2017-06-22] MEDS: ACCU-CHEK XX (01:08)
[2017-06-22] MEDS: morphine 2 MG INJ IV (01:16)
[2017-06-22] MEDS: AMPICILLIN 1 GM/NS (PMX) 50 ML IVPB ×2 (03:39→16:23)
[2017-06-22] MEDS: PANTOPRAZOLE (EC) 40 MG TAB PO (05:32)
[2017-06-22 05:50] LABS: ADD MAN DIFF? NO
[2017-06-22 05:58] LABS: BASOPHILS % 0.1 % (0.0-2.0); EOSINOPHILS # 0.3 10^3/ul (0.0-0.5); EOSINOPHILS % 2.1 % (0.0-7.0); HEMATOCRIT 27.5 % (42.0-52.0); HEMOGLOBIN 8.7 g/dl (14.0-18.0); LYMPHOCYTES # 2.8 10^3/ul (0.8-2.9); LYMPHOCYTES % 19.7 % (15.0-51.0); MEAN CORPUSCULAR HGB CONC 31.6 g/dl (32.0-37.0); MEAN CORPUSCULAR VOLUME 104.2 fl (82.0-101.0); MEAN PLATELET VOLUME 11.5 fl (7.4-10.4); MONOCYTE # 1.3 10^3/ul (0.3-0.9); MONOCYTES % 9.1 % (0.0-11.0); NEUTROPHIL # 9.6 10^3/ul (1.6-7.5); NEUTROPHILS % 68.4 % (39.0-77.0); PLATELET COUNT 426 10^3/UL (140-415); RED BLOOD COUNT 2.64 10^6/ul (4.70-6.10); RED CELL DISTRIBUTION WIDTH 14.6 % (11.5-14.5)
[2017-06-22] MEDS: DOCUSATE SODIUM 100 MG CAP PO ×2 (06:36→18:18)
[2017-06-22 06:46] LABS: ANION GAP 22 (8-16); BLOOD UREA NITROGEN 115 mg/dl (7-20); CALCIUM 8.7 mg/dl (8.4-10.2); CARBON DIOXIDE 28 mmol/L (21-31); CHLORIDE 90 mmol/L (97-110); CREATININE 8.73 mg/dl (0.61-1.24); GLUCOSE 107 mg/dl (70-220); SODIUM 135 mmol/L (135-144)
[2017-06-22] MEDS: INSULIN ASPART [NOVOLOG] 3 ML PEN SC ×4 (08:00→20:08)
[2017-06-22] MEDS: SEVELAMER 800 MG TAB PO ×3 (08:10→17:13)
[2017-06-22] MEDS: LACTOBACILLUS RHAMNOSUS CAP PO ×2 (09:31→20:04)
[2017-06-22] MEDS: ASPIRIN (EC) 81 MG TAB PO (09:31)
[2017-06-22] MEDS: MEGESTROL (40 MG/ML) 10ML CUP PO ×2 (09:33→20:06)
[2017-06-22] MEDS: METOPROLOL 50 MG TAB PO ×2 (09:33→20:06)
[2017-06-22] MEDS: PREGABALIN 50 MG CAP PO ×3 (09:33→20:04)
[2017-06-22] MEDS: POLYETHYLENE GLYCOL 17 GM PACKET PO ×2 (09:34→20:08)
[2017-06-22] MEDS: morphine (ER) 15 MG TAB PO ×2 (09:34→20:05)
[2017-06-22] MEDS: MULTIVIT/CA CARB/B CMPLX/FA TAB PO (09:35)
[2017-06-22] MEDS: AMLODIPINE 5 MG TAB PO (09:35)
[2017-06-22] MEDS: CILOSTAZOL 100 MG TAB PO ×2 (09:35→20:04)
[2017-06-22] MEDS: PENTOXIFYLLINE (SR) 400 MG TAB PO ×3 (09:35→20:04)
[2017-06-22] MEDS: HEPARIN 5,000 UNIT/0.5 ML VIAL SC ×2 (09:38→20:08)
[2017-06-23] MEDS: ACETAMINOPHEN 500 MG TAB PO ×4 (00:26→17:46)
[2017-06-23] MEDS: ACCU-CHEK XX (01:38)
[2017-06-23] MEDS: AMPICILLIN 1 GM/NS (PMX) 50 ML IVPB ×2 (02:55→15:23)
[2017-06-23] MEDS: PANTOPRAZOLE (EC) 40 MG TAB PO (06:18)
[2017-06-23] MEDS: DOCUSATE SODIUM 100 MG CAP PO ×2 (06:19→17:46)
[2017-06-23 06:32] LABS: ADD MAN DIFF? NO
[2017-06-23 06:49] LABS: BASOPHIL # 0.1 10^3/ul (0.0-0.1); BASOPHILS % 0.3 % (0.0-2.0); EOSINOPHILS # 0.2 10^3/ul (0.0-0.5); HEMOGLOBIN 8.8 g/dl (14.0-18.0); LYMPHOCYTES % 15.5 % (15.0-51.0); MEAN CORPUSCULAR HEMOGLOBIN 33.3 pg (29.0-33.0); MEAN CORPUSCULAR HGB CONC 32.6 g/dl (32.0-37.0); MEAN CORPUSCULAR VOLUME 102.3 fl (82.0-101.0); MEAN PLATELET VOLUME 11.7 fl (7.4-10.4); MONOCYTE # 1.2 10^3/ul (0.3-0.9); MONOCYTES % 6.2 % (0.0-11.0); NEUTROPHILS % 76.5 % (39.0-77.0); PLATELET COUNT 402 10^3/UL (140-415); RED BLOOD COUNT 2.64 10^6/ul (4.70-6.10); RED CELL DISTRIBUTION WIDTH 14.9 % (11.5-14.5)
[2017-06-23 06:49] LABS: WHITE BLOOD COUNT 19.6 10^3/ul (4.8-10.8)
[2017-06-23 07:08] LABS: ANION GAP 27 (8-16); CALCIUM 8.5 mg/dl (8.4-10.2); CARBON DIOXIDE 21 mmol/L (21-31); CHLORIDE 90 mmol/L (97-110); CREATININE 10.05 mg/dl (0.61-1.24); GLUCOSE 74 mg/dl (70-220); SODIUM 132 mmol/L (135-144)
[2017-06-23 07:43] LABS: POTASSIUM 6.1 mmol/L (3.5-5.1)
[2017-06-23] MEDS: INSULIN ASPART [NOVOLOG] 3 ML PEN SC ×4 (07:55→21:29)
[2017-06-23] MEDS: SEVELAMER 800 MG TAB PO ×3 (08:08→17:46)
[2017-06-23] MEDS: HEPARIN 5,000 UNIT/0.5 ML VIAL SC ×2 (08:54→21:19)
[2017-06-23] MEDS: LACTOBACILLUS RHAMNOSUS CAP PO ×2 (08:58→21:18)
[2017-06-23] MEDS: ASPIRIN (EC) 81 MG TAB PO (08:58)
[2017-06-23] MEDS: CILOSTAZOL 100 MG TAB PO ×2 (08:58→21:16)
[2017-06-23] MEDS: PENTOXIFYLLINE (SR) 400 MG TAB PO ×3 (08:58→21:17)
[2017-06-23] MEDS: MULTIVIT/CA CARB/B CMPLX/FA TAB PO (08:58)
[2017-06-23] MEDS: MEGESTROL (40 MG/ML) 10ML CUP PO ×2 (08:59→21:16)
[2017-06-23] MEDS: POLYETHYLENE GLYCOL 17 GM PACKET PO ×2 (09:00→21:20)
[2017-06-23] MEDS: METOPROLOL 50 MG TAB PO ×2 (09:00→21:18)
[2017-06-23] MEDS: morphine (ER) 15 MG TAB PO ×2 (09:00→21:18)
[2017-06-23] MEDS: PREGABALIN 50 MG CAP PO ×2 (09:00→13:00)
[2017-06-23] MEDS: AMLODIPINE 5 MG TAB PO (09:00)
[2017-06-23 09:01] LABS: BLOOD UREA NITROGEN 140 mg/dl (7-20)
[2017-06-23] MEDS: GENTAMICIN 80 MG/NS (PMX) 50 ML IVPB (16:14)
[2017-06-23] MEDS: PREGABALIN 25 MG CAP PO (21:16)
[2017-06-24] MEDS: ACETAMINOPHEN 500 MG TAB PO ×6 (00:17→17:47)
[2017-06-24] MEDS: ACCU-CHEK XX (02:00)
[2017-06-24] MEDS: AMPICILLIN 1 GM/NS (PMX) 50 ML IVPB ×2 (02:37→15:53)
[2017-06-24] MEDS: DOCUSATE SODIUM 100 MG CAP PO ×2 (06:13→18:00)
[2017-06-24] MEDS: PANTOPRAZOLE (EC) 40 MG TAB PO (06:13)
[2017-06-24 06:56] LABS: ADD MAN DIFF? NO
[2017-06-24 07:01] LABS: WHITE BLOOD COUNT 15.6 10^3/ul (4.8-10.8)
[2017-06-24 07:01] LABS: BASOPHILS % 0.1 % (0.0-2.0); EOSINOPHILS # 0.2 10^3/ul (0.0-0.5); EOSINOPHILS % 1.1 % (0.0-7.0); HEMOGLOBIN 8.7 g/dl (14.0-18.0); LYMPHOCYTES # 2.5 10^3/ul (0.8-2.9); MEAN CORPUSCULAR HGB CONC 32.2 g/dl (32.0-37.0); MEAN CORPUSCULAR VOLUME 102.3 fl (82.0-101.0); MEAN PLATELET VOLUME 11.5 fl (7.4-10.4); MONOCYTE # 1.4 10^3/ul (0.3-0.9); MONOCYTES % 9.2 % (0.0-11.0); NEUTROPHIL # 11.4 10^3/ul (1.6-7.5); NEUTROPHILS % 73.2 % (39.0-77.0); PLATELET COUNT 372 10^3/UL (140-415); RED BLOOD COUNT 2.64 10^6/ul (4.70-6.10); RED CELL DISTRIBUTION WIDTH 14.7 % (11.5-14.5)
[2017-06-24] MEDS: INSULIN ASPART [NOVOLOG] 3 ML PEN SC ×4 (08:00→21:00)
[2017-06-24 08:08] LABS: ANION GAP 19 (8-16)
[2017-06-24 08:12] LABS: SODIUM 130 mmol/L (135-144)
[2017-06-24 08:14] LABS: BLOOD UREA NITROGEN 99 mg/dl (7-20); CALCIUM 8.8 mg/dl (8.4-10.2); CARBON DIOXIDE 24 mmol/L (21-31); CHLORIDE 91 mmol/L (97-110); CREATININE 7.07 mg/dl (0.61-1.24); GLUCOSE 119 mg/dl (70-220); POTASSIUM 4.4 mmol/L (3.5-5.1)
[2017-06-24] MEDS: SEVELAMER 800 MG TAB PO ×5 (08:59→17:47)
[2017-06-24] MEDS: LACTOBACILLUS RHAMNOSUS CAP PO ×2 (09:00→21:24)
[2017-06-24] MEDS: ASPIRIN (EC) 81 MG TAB PO (09:00)
[2017-06-24] MEDS: PREGABALIN 25 MG CAP PO ×4 (09:00→21:25)
[2017-06-24] MEDS: METOPROLOL 50 MG TAB PO ×2 (09:00→21:21)
[2017-06-24] MEDS: MEGESTROL (40 MG/ML) 10ML CUP PO ×2 (09:00→21:24)
[2017-06-24] MEDS: AMLODIPINE 5 MG TAB PO (09:01)
[2017-06-24] MEDS: POLYETHYLENE GLYCOL 17 GM PACKET PO ×2 (09:01→21:25)
[2017-06-24] MEDS: morphine (ER) 15 MG TAB PO ×2 (09:01→21:24)
[2017-06-24] MEDS: PENTOXIFYLLINE (SR) 400 MG TAB PO ×4 (09:01→21:22)
[2017-06-24] MEDS: CILOSTAZOL 100 MG TAB PO ×2 (09:02→21:24)
[2017-06-24] MEDS: MULTIVIT/CA CARB/B CMPLX/FA TAB PO (09:02)
[2017-06-24] MEDS: HEPARIN 5,000 UNIT/0.5 ML VIAL SC (09:04)
[2017-06-25] MEDS: ACETAMINOPHEN 500 MG TAB PO ×5 (00:10→23:37)
[2017-06-25] MEDS: HEPARIN 5,000 UNIT/0.5 ML VIAL SC ×3 (00:11→20:50)
[2017-06-25] MEDS: ACCU-CHEK XX ×2 (02:00→23:40)
[2017-06-25] MEDS: AMPICILLIN 1 GM/NS (PMX) 50 ML IVPB ×2 (02:38→15:30)
[2017-06-25] MEDS: PANTOPRAZOLE (EC) 40 MG TAB PO (05:25)
[2017-06-25] MEDS: DOCUSATE SODIUM 100 MG CAP PO ×2 (06:53→19:00)
[2017-06-25] MEDS: INSULIN ASPART [NOVOLOG] 3 ML PEN SC ×4 (08:00→20:46)
[2017-06-25] MEDS: ASPIRIN (EC) 81 MG TAB PO (08:39)
[2017-06-25] MEDS: LACTOBACILLUS RHAMNOSUS CAP PO ×2 (08:39→20:48)
[2017-06-25] MEDS: PREGABALIN 25 MG CAP PO ×3 (08:39→20:47)
[2017-06-25] MEDS: morphine (ER) 15 MG TAB PO ×2 (08:40→20:57)
[2017-06-25] MEDS: MEGESTROL (40 MG/ML) 10ML CUP PO ×2 (08:40→20:47)
[2017-06-25] MEDS: METOPROLOL 50 MG TAB PO ×2 (08:40→20:46)
[2017-06-25] MEDS: POLYETHYLENE GLYCOL 17 GM PACKET PO ×2 (08:40→20:49)
[2017-06-25] MEDS: CILOSTAZOL 100 MG TAB PO ×2 (08:40→20:47)
[2017-06-25] MEDS: SEVELAMER 800 MG TAB PO ×3 (08:40→17:30)
[2017-06-25] MEDS: PENTOXIFYLLINE (SR) 400 MG TAB PO ×3 (08:40→20:47)
[2017-06-25] MEDS: AMLODIPINE 5 MG TAB PO (08:41)
[2017-06-25] MEDS: MULTIVIT/CA CARB/B CMPLX/FA TAB PO (08:46)
[2017-06-25 09:28] LABS: ADD MAN DIFF? NO
[2017-06-25 09:35] LABS: WHITE BLOOD COUNT 15.1 10^3/ul (4.8-10.8)
[2017-06-25 09:35] LABS: ABNORMAL IP MESSAGE 1; BASOPHILS % 0.1 % (0.0-2.0); EOSINOPHILS # 0.2 10^3/ul (0.0-0.5); EOSINOPHILS % 1.3 % (0.0-7.0); HEMATOCRIT 27.2 % (42.0-52.0); HEMOGLOBIN 8.7 g/dl (14.0-18.0); LYMPHOCYTES # 3.9 10^3/ul (0.8-2.9); LYMPHOCYTES % 25.6 % (15.0-51.0); MEAN CORPUSCULAR HEMOGLOBIN 32.6 pg (29.0-33.0); MEAN CORPUSCULAR VOLUME 101.9 fl (82.0-101.0); MEAN PLATELET VOLUME 11.7 fl (7.4-10.4); MONOCYTE # 1.5 10^3/ul (0.3-0.9); MONOCYTES % 10.2 % (0.0-11.0); NEUTROPHIL # 9.4 10^3/ul (1.6-7.5); NEUTROPHILS % 62.3 % (39.0-77.0); PLATELET COUNT 404 10^3/UL (140-415); POSITIVE DIFF @See below; RED BLOOD COUNT 2.67 10^6/ul (4.70-6.10); RED CELL DISTRIBUTION WIDTH 14.7 % (11.5-14.5)
[2017-06-25 09:51] LABS: ANION GAP 24 (8-16); BLOOD UREA NITROGEN 115 mg/dl (7-20); CALCIUM 8.9 mg/dl (8.4-10.2); CARBON DIOXIDE 23 mmol/L (21-31); CHLORIDE 89 mmol/L (97-110); CREATININE 8.89 mg/dl (0.61-1.24); GLUCOSE 111 mg/dl (70-220); POTASSIUM 4.4 mmol/L (3.5-5.1); SODIUM 132 mmol/L (135-144)
[2017-06-26] MEDS: AMPICILLIN 1 GM/NS (PMX) 50 ML IVPB ×2 (03:21→14:39)
[2017-06-26] MEDS: ACETAMINOPHEN 500 MG TAB PO ×3 (06:00→17:23)
[2017-06-26] MEDS: PANTOPRAZOLE (EC) 40 MG TAB PO (06:00)
[2017-06-26] MEDS: DOCUSATE SODIUM 100 MG CAP PO ×2 (06:00→17:25)
[2017-06-26] MEDS: INSULIN ASPART [NOVOLOG] 3 ML PEN SC ×4 (08:00→21:38)
[2017-06-26] MEDS: SEVELAMER 800 MG TAB PO ×3 (08:18→17:23)
[2017-06-26] MEDS: HEPARIN 5,000 UNIT/0.5 ML VIAL SC ×2 (09:17→21:37)
[2017-06-26] MEDS: POLYETHYLENE GLYCOL 17 GM PACKET PO ×2 (09:17→21:31)
[2017-06-26] MEDS: MEGESTROL (40 MG/ML) 10ML CUP PO ×2 (09:17→21:31)
[2017-06-26] MEDS: ASPIRIN (EC) 81 MG TAB PO (09:17)
[2017-06-26] MEDS: PENTOXIFYLLINE (SR) 400 MG TAB PO ×3 (09:17→21:34)
[2017-06-26] MEDS: LACTOBACILLUS RHAMNOSUS CAP PO ×2 (09:18→21:31)
[2017-06-26] MEDS: CILOSTAZOL 100 MG TAB PO ×2 (09:18→21:50)
[2017-06-26] MEDS: PREGABALIN 25 MG CAP PO ×3 (09:18→21:31)
[2017-06-26] MEDS: MULTIVIT/CA CARB/B CMPLX/FA TAB PO (09:18)
[2017-06-26] MEDS: morphine (ER) 15 MG TAB PO ×2 (09:18→21:33)
[2017-06-26] MEDS: AMLODIPINE 5 MG TAB PO (09:19)
[2017-06-26] MEDS: METOPROLOL 50 MG TAB PO ×2 (09:19→21:32)
[2017-06-27] MEDS: ACCU-CHEK XX (02:00)
[2017-06-27] MEDS: AMPICILLIN 1 GM/NS (PMX) 50 ML IVPB ×2 (02:47→16:24)
[2017-06-27] MEDS: ACETAMINOPHEN 325 MG TAB PO (02:55)
[2017-06-27] MEDS: ACETAMINOPHEN 500 MG TAB PO ×5 (05:39→22:17)
[2017-06-27] MEDS: PANTOPRAZOLE (EC) 40 MG TAB PO (05:39)
[2017-06-27] MEDS: DOCUSATE SODIUM 100 MG CAP PO ×3 (06:19→22:18)
[2017-06-27] MEDS: CILOSTAZOL 100 MG TAB PO ×2 (07:51→22:18)
[2017-06-27] MEDS: SEVELAMER 800 MG TAB PO ×4 (07:51→22:17)
[2017-06-27] MEDS: MEGESTROL (40 MG/ML) 10ML CUP PO ×2 (07:52→22:15)
[2017-06-27] MEDS: MULTIVIT/CA CARB/B CMPLX/FA TAB PO (07:52)
[2017-06-27] MEDS: morphine (ER) 15 MG TAB PO ×2 (07:52→22:19)
[2017-06-27] MEDS: ASPIRIN (EC) 81 MG TAB PO (07:52)
[2017-06-27] MEDS: PREGABALIN 25 MG CAP PO ×3 (07:52→22:17)
[2017-06-27] MEDS: HEPARIN 5,000 UNIT/0.5 ML VIAL SC ×2 (07:53→22:21)
[2017-06-27] MEDS: INSULIN ASPART [NOVOLOG] 3 ML PEN SC ×4 (07:54→21:00)
[2017-06-27] MEDS: PENTOXIFYLLINE (SR) 400 MG TAB PO ×3 (07:58→22:16)
[2017-06-27] MEDS: LACTOBACILLUS RHAMNOSUS CAP PO ×2 (07:58→22:17)
[2017-06-27] MEDS: POLYETHYLENE GLYCOL 17 GM PACKET PO ×2 (07:59→22:14)
[2017-06-27] MEDS: AMLODIPINE 5 MG TAB PO (08:01)
[2017-06-27] MEDS: METOPROLOL 50 MG TAB PO ×2 (08:01→22:18)
[2017-06-27 10:32] LABS: ADD MAN DIFF? NO
[2017-06-27 10:36] LABS: BASOPHILS % 0.2 % (0.0-2.0); EOSINOPHILS # 0.2 10^3/ul (0.0-0.5); HEMATOCRIT 23.2 % (42.0-52.0); HEMOGLOBIN 7.8 g/dl (14.0-18.0); LYMPHOCYTES % 13.5 % (15.0-51.0); MEAN CORPUSCULAR HEMOGLOBIN 33.3 pg (29.0-33.0); MEAN CORPUSCULAR HGB CONC 33.6 g/dl (32.0-37.0); MEAN CORPUSCULAR VOLUME 99.1 fl (82.0-101.0); MEAN PLATELET VOLUME 11.5 fl (7.4-10.4); MONOCYTE # 0.9 10^3/ul (0.3-0.9); MONOCYTES % 6.2 % (0.0-11.0); NEUTROPHIL # 11.5 10^3/ul (1.6-7.5); NEUTROPHILS % 78.4 % (39.0-77.0); PLATELET COUNT 310 10^3/UL (140-415); RED BLOOD COUNT 2.34 10^6/ul (4.70-6.10); RED CELL DISTRIBUTION WIDTH 14.6 % (11.5-14.5)
[2017-06-27 10:36] LABS: WHITE BLOOD COUNT 14.7 10^3/ul (4.8-10.8)
[2017-06-27 11:10] LABS: ANION GAP 19 (8-16); BLOOD UREA NITROGEN 85 mg/dl (7-20); CALCIUM 8.4 mg/dl (8.4-10.2); CARBON DIOXIDE 26 mmol/L (21-31); CHLORIDE 93 mmol/L (97-110); CREATININE 5.34 mg/dl (0.61-1.24); GLUCOSE 172 mg/dl (70-220); POTASSIUM 4.5 mmol/L (3.5-5.1); SODIUM 133 mmol/L (135-144)
[2017-06-27] MEDS: GENTAMICIN 80 MG/NS (PMX) 50 ML IVPB (12:16)
[2017-06-28] MEDS: ACCU-CHEK XX (02:00)
[2017-06-28] MEDS: AMPICILLIN 1 GM/NS (PMX) 50 ML IVPB ×2 (03:17→16:57)
[2017-06-28] MEDS: ACETAMINOPHEN 500 MG TAB PO ×4 (05:32→22:15)
[2017-06-28] MEDS: PANTOPRAZOLE (EC) 40 MG TAB PO (05:32)
[2017-06-28] MEDS: INSULIN ASPART [NOVOLOG] 3 ML PEN SC ×4 (08:00→22:17)
[2017-06-28] MEDS: CILOSTAZOL 100 MG TAB PO ×2 (08:09→22:16)
[2017-06-28] MEDS: PENTOXIFYLLINE (SR) 400 MG TAB PO ×3 (08:09→22:14)
[2017-06-28] MEDS: POLYETHYLENE GLYCOL 17 GM PACKET PO ×2 (08:09→22:14)
[2017-06-28] MEDS: MULTIVIT/CA CARB/B CMPLX/FA TAB PO (08:09)
[2017-06-28] MEDS: morphine (ER) 15 MG TAB PO ×2 (08:09→21:00)
[2017-06-28] MEDS: MEGESTROL (40 MG/ML) 10ML CUP PO ×2 (08:09→22:18)
[2017-06-28] MEDS: LACTOBACILLUS RHAMNOSUS CAP PO ×2 (08:10→22:14)
[2017-06-28] MEDS: ASPIRIN (EC) 81 MG TAB PO (08:10)
[2017-06-28] MEDS: PREGABALIN 25 MG CAP PO ×3 (08:10→22:15)
[2017-06-28] MEDS: HEPARIN 5,000 UNIT/0.5 ML VIAL SC ×2 (08:12→22:18)
[2017-06-28] MEDS: METOPROLOL 50 MG TAB PO ×2 (08:13→22:16)
[2017-06-28] MEDS: AMLODIPINE 5 MG TAB PO (08:13)
[2017-06-28] MEDS: SEVELAMER 800 MG TAB PO ×3 (12:38→22:15)
[2017-06-28] MEDS: DOCUSATE SODIUM 100 MG CAP PO ×2 (18:11→22:15)
[2017-06-29] MEDS: ACCU-CHEK XX (02:00)
[2017-06-29] MEDS: AMPICILLIN 1 GM/NS (PMX) 50 ML IVPB ×2 (02:07→16:44)
[2017-06-29] MEDS: PANTOPRAZOLE (EC) 40 MG TAB PO (05:29)
[2017-06-29] MEDS: ACETAMINOPHEN 500 MG TAB PO ×3 (05:29→17:11)
[2017-06-29] MEDS: morphine (ER) 15 MG TAB PO ×2 (09:00→20:54)
[2017-06-29] MEDS: INSULIN ASPART [NOVOLOG] 3 ML PEN SC ×4 (09:32→20:54)
[2017-06-29] MEDS: HEPARIN 5,000 UNIT/0.5 ML VIAL SC ×2 (09:32→20:54)
[2017-06-29] MEDS: ASPIRIN (EC) 81 MG TAB PO (09:33)
[2017-06-29] MEDS: LACTOBACILLUS RHAMNOSUS CAP PO ×2 (09:33→20:34)
[2017-06-29] MEDS: PREGABALIN 25 MG CAP PO ×3 (09:34→20:34)
[2017-06-29] MEDS: MEGESTROL (40 MG/ML) 10ML CUP PO ×2 (09:34→20:34)
[2017-06-29] MEDS: POLYETHYLENE GLYCOL 17 GM PACKET PO ×2 (09:34→20:34)
[2017-06-29] MEDS: METOPROLOL 50 MG TAB PO ×2 (09:35→20:34)
[2017-06-29] MEDS: PENTOXIFYLLINE (SR) 400 MG TAB PO ×3 (09:35→20:34)
[2017-06-29] MEDS: CILOSTAZOL 100 MG TAB PO ×2 (09:35→20:34)
[2017-06-29] MEDS: AMLODIPINE 5 MG TAB PO (09:35)
[2017-06-29] MEDS: MULTIVIT/CA CARB/B CMPLX/FA TAB PO (09:35)
[2017-06-29] MEDS: SEVELAMER 800 MG TAB PO ×3 (09:37→17:11)
[2017-06-29] MEDS: DOCUSATE SODIUM 100 MG CAP PO (20:34)
[2017-06-29] MEDS: NITROGLYCERIN (SL) 0.4 MG TAB SL ×2 (21:50→22:00)
[2017-06-29] MEDS: morphine 2 MG INJ IV (22:06)
[2017-06-29] MEDS: ALBUTEROL/IPRATROPIUM (NEB) 3 ML AMP HHN (22:09)
[2017-06-29 22:29] LABS: AADO2 Arterial 232.4 mmHg (7.0-24.0); Arterial Base Excess -2.6 mmol/L (-3.0-3); Arterial Blood Gas Oxygen Sat 97.6 mmHG (95.0-98.0); Arterial COHb 0 % (0.0-3.0); Arterial Fraction of Oxyhgb 97.5 % (93.0-99.0); Arterial HCO3 21.6 mmol/L (22.0-26.0); Arterial MetHb 0.1 % (0.0-1.5); Arterial Total Hemglobin 10.1 g/dl (12.0-18.0); MODE MASK - SIMPLE; Site Right Brachial
[2017-06-29 22:38] LABS: ADD MAN DIFF? NO
[2017-06-29 22:40] LABS: WHITE BLOOD COUNT 25.7 10^3/ul (4.8-10.8)
[2017-06-29 22:40] LABS: ABNORMAL IP MESSAGE 1; BASOPHILS % 0.1 % (0.0-2.0); EOSINOPHILS # 0.1 10^3/ul (0.0-0.5); EOSINOPHILS % 0.5 % (0.0-7.0); HEMATOCRIT 26.9 % (42.0-52.0); HEMOGLOBIN 8.6 g/dl (14.0-18.0); LYMPHOCYTES # 3.9 10^3/ul (0.8-2.9); LYMPHOCYTES % 15.2 % (15.0-51.0); MEAN CORPUSCULAR HEMOGLOBIN 32.8 pg (29.0-33.0); MEAN CORPUSCULAR VOLUME 102.7 fl (82.0-101.0); MEAN PLATELET VOLUME 11.9 fl (7.4-10.4); MONOCYTE # 1.8 10^3/ul (0.3-0.9); NEUTROPHIL # 19.6 10^3/ul (1.6-7.5); NEUTROPHILS % 76.3 % (39.0-77.0); PLATELET COUNT 348 10^3/UL (140-415); POSITIVE DIFF @See below; RED BLOOD COUNT 2.62 10^6/ul (4.70-6.10); RED CELL DISTRIBUTION WIDTH 14.7 % (11.5-14.5)
[2017-06-29 22:57] LABS: MAGNESIUM 2.8 mg/dl (1.7-2.5)
[2017-06-29 22:58] LABS: ANION GAP 25 (8-16); CALCIUM 9.1 mg/dl (8.4-10.2); CARBON DIOXIDE 23 mmol/L (21-31); CHLORIDE 91 mmol/L (97-110); CREATINE KINASE 127 IU/L (23-200); CREATININE 7.97 mg/dl (0.61-1.24); GLUCOSE 161 mg/dl (70-220); SODIUM 133 mmol/L (135-144)
[2017-06-29 23:05] LABS: D-DIMER 1088.28 ng/ml (<460)
[2017-06-29 23:13] LABS: CK INDEX 1.2; TROPONIN-I 0.023 ng/ml (0.00-0.12)
[2017-06-29 23:23] LABS: BLOOD UREA NITROGEN 119 mg/dl (7-20); CK-MB 1.56 ng/ml (0.0-2.4); POTASSIUM 6.4 mmol/L (3.5-5.1)
[2017-06-30] MEDS: ACETAMINOPHEN 325 MG TAB PO (00:02)
[2017-06-30] MEDS: NA POLYST SULFON 15 GM/60 ML BTL PO ×2 (00:02→04:21)
[2017-06-30] MEDS: DEXTROSE 50% 50 ML SYRINGE IV ×3 (00:03→03:57)
[2017-06-30] MEDS: INSULIN ASPART [NOVOLOG] 3 ML PEN SC ×6 (00:18→21:00)
[2017-06-30] MEDS: ACETAMINOPHEN 500 MG TAB PO ×5 (00:29→23:48)
[2017-06-30] MEDS: LEVOFLOXACIN 750MG/D5W (PMX) 150 ML IVPB (00:34)
[2017-06-30] MEDS: ACCU-CHEK XX (02:00)
[2017-06-30] MEDS: AMPICILLIN 1 GM/NS (PMX) 50 ML IVPB (02:30)
[2017-06-30 03:26] LABS: POTASSIUM 6.5 mmol/L (3.5-5.1)
[2017-06-30] MEDS: PIPER-TAZO 3.375 GM IV (PMX) 50 ML IV (04:21)
[2017-06-30 05:21] LABS: ADD MAN DIFF? NO
[2017-06-30 05:32] LABS: BASOPHILS % 0.2 % (0.0-2.0); EOSINOPHILS # 0.1 10^3/ul (0.0-0.5); EOSINOPHILS % 0.3 % (0.0-7.0); HEMATOCRIT 22.6 % (42.0-52.0); HEMOGLOBIN 7.5 g/dl (14.0-18.0); LYMPHOCYTES # 1.9 10^3/ul (0.8-2.9); LYMPHOCYTES % 9.9 % (15.0-51.0); MEAN CORPUSCULAR HEMOGLOBIN 33.9 pg (29.0-33.0); MEAN CORPUSCULAR HGB CONC 33.2 g/dl (32.0-37.0); MEAN CORPUSCULAR VOLUME 102.3 fl (82.0-101.0); MEAN PLATELET VOLUME 12.3 fl (7.4-10.4); MONOCYTE # 1.2 10^3/ul (0.3-0.9); MONOCYTES % 6.1 % (0.0-11.0); NEUTROPHIL # 16.2 10^3/ul (1.6-7.5); NEUTROPHILS % 82.8 % (39.0-77.0); PLATELET COUNT 293 10^3/UL (140-415); RED BLOOD COUNT 2.21 10^6/ul (4.70-6.10); RED CELL DISTRIBUTION WIDTH 14.7 % (11.5-14.5)
[2017-06-30 05:32] LABS: WHITE BLOOD COUNT 19.6 10^3/ul (4.8-10.8)
[2017-06-30 06:03] LABS: GENTAMICIN,RANDOM 2.3 ug/ml
[2017-06-30 06:04] LABS: GLUCOSE 78 mg/dl (70-220)
[2017-06-30 06:09] LABS: PHOSPHORUS 3.1 mg/dl (2.5-4.9)
[2017-06-30] MEDS: PANTOPRAZOLE (EC) 40 MG TAB PO (06:10)
[2017-06-30] MEDS: DOCUSATE SODIUM 100 MG CAP PO ×2 (06:10→19:00)
[2017-06-30 07:12] LABS: POTASSIUM 5.6 mmol/L (3.5-5.1)
[2017-06-30 07:42] LABS: ANION GAP 24 (8-16); CALCIUM 9.1 mg/dl (8.4-10.2); CARBON DIOXIDE 22 mmol/L (21-31); CHLORIDE 95 mmol/L (97-110); CREATININE 8.42 mg/dl (0.61-1.24); SODIUM 135 mmol/L (135-144)
[2017-06-30 07:47] LABS: POTASSIUM 6.1 mmol/L (3.5-5.1)
[2017-06-30 08:21] LABS: BLOOD UREA NITROGEN 127 mg/dl (7-20)
[2017-06-30] MEDS: POLYETHYLENE GLYCOL 17 GM PACKET PO ×2 (09:00→21:00)
[2017-06-30] MEDS: SEVELAMER 800 MG TAB PO ×3 (09:54→17:09)
[2017-06-30] MEDS: LACTOBACILLUS RHAMNOSUS CAP PO ×2 (09:55→21:26)
[2017-06-30] MEDS: MULTIVIT/CA CARB/B CMPLX/FA TAB PO (09:57)
[2017-06-30] MEDS: ASPIRIN (EC) 81 MG TAB PO (09:57)
[2017-06-30] MEDS: CILOSTAZOL 100 MG TAB PO ×2 (09:57→21:25)
[2017-06-30] MEDS: PREGABALIN 25 MG CAP PO ×3 (09:57→21:25)
[2017-06-30] MEDS: morphine (ER) 15 MG TAB PO ×2 (09:58→21:00)
[2017-06-30] MEDS: AMLODIPINE 5 MG TAB PO (09:58)
[2017-06-30] MEDS: HEPARIN 5,000 UNIT/0.5 ML VIAL SC ×2 (09:59→21:27)
[2017-06-30] MEDS: METOPROLOL 50 MG TAB PO ×2 (10:00→21:26)
[2017-06-30] MEDS: MEGESTROL (40 MG/ML) 10ML CUP PO ×2 (10:00→21:25)
[2017-06-30] MEDS: PENTOXIFYLLINE (SR) 400 MG TAB PO ×3 (10:09→21:26)
[2017-06-30] MEDS ORDERED: SOD CHLORIDE 0.9% IVPB (16:30)
[2017-06-30] MEDS ORDERED: DAPTOMYCIN IVPB (16:30)
[2017-06-30] MEDS: ERTAPENEM SODIUM IVPB (17:10)
[2017-06-30] MEDS: SOD CHLORIDE 0.9% IVPB ×2 (17:10→18:03)
[2017-06-30] MEDS: DAPTOMYCIN IVPB (18:03)
[2017-06-30 19:29] LABS: TROPONIN-I 0.062 ng/ml (0.00-0.12)
[2017-07-01] MEDS: ACCU-CHEK XX (02:00)
[2017-07-01] MEDS: PANTOPRAZOLE (EC) 40 MG TAB PO (05:47)
[2017-07-01] MEDS: ACETAMINOPHEN 500 MG TAB PO ×3 (05:47→17:23)
[2017-07-01] MEDS: DOCUSATE SODIUM 100 MG CAP PO ×2 (06:07→19:46)
[2017-07-01] MEDS: INSULIN ASPART [NOVOLOG] 3 ML PEN SC ×4 (07:57→22:02)
[2017-07-01] MEDS: POLYETHYLENE GLYCOL 17 GM PACKET PO ×2 (09:20→21:59)
[2017-07-01] MEDS: SEVELAMER 800 MG TAB PO ×3 (09:21→17:23)
[2017-07-01] MEDS: MULTIVIT/CA CARB/B CMPLX/FA TAB PO (09:21)
[2017-07-01] MEDS: PREGABALIN 25 MG CAP PO ×3 (09:21→22:00)
[2017-07-01] MEDS: CILOSTAZOL 100 MG TAB PO ×2 (09:21→22:00)
[2017-07-01] MEDS: PENTOXIFYLLINE (SR) 400 MG TAB PO ×3 (09:22→22:01)
[2017-07-01] MEDS: morphine (ER) 15 MG TAB PO ×2 (09:22→22:00)
[2017-07-01] MEDS: LACTOBACILLUS RHAMNOSUS CAP PO ×2 (09:22→22:01)
[2017-07-01] MEDS: HEPARIN 5,000 UNIT/0.5 ML VIAL SC ×2 (09:23→22:04)
[2017-07-01] MEDS: AMLODIPINE 5 MG TAB PO (09:24)
[2017-07-01] MEDS: MEGESTROL (40 MG/ML) 10ML CUP PO ×2 (09:24→22:01)
[2017-07-01] MEDS: METOPROLOL 50 MG TAB PO ×2 (09:24→22:12)
[2017-07-01] MEDS: ASPIRIN (EC) 81 MG TAB PO (09:24)
[2017-07-01] MEDS: ZYVOX 600 MG TAB PO ×2 (13:54→22:00)
[2017-07-01] MEDS ORDERED: ERTAPENEM SODIUM 0.5 GM in SOD CHLORIDE 0.9% 100 ML IVPB (17:00)
[2017-07-01] MEDS: MEROPENEM 500MG/50 ML (PMX) 50 ML IVPB (17:23)
[2017-07-02] MEDS: ACETAMINOPHEN 500 MG TAB PO ×4 (00:08→17:51)
[2017-07-02] MEDS: ACCU-CHEK XX (02:00)
[2017-07-02] MEDS: PANTOPRAZOLE (EC) 40 MG TAB PO (05:40)
[2017-07-02] MEDS: DOCUSATE SODIUM 100 MG CAP PO ×2 (07:00→19:36)
[2017-07-02] MEDS: INSULIN ASPART [NOVOLOG] 3 ML PEN SC ×4 (08:00→21:58)
[2017-07-02] MEDS: morphine (ER) 15 MG TAB PO ×2 (09:00→20:48)
[2017-07-02] MEDS: SEVELAMER 800 MG TAB PO ×3 (09:53→17:51)
[2017-07-02] MEDS: LACTOBACILLUS RHAMNOSUS CAP PO ×2 (09:54→20:47)
[2017-07-02] MEDS: ASPIRIN (EC) 81 MG TAB PO (09:54)
[2017-07-02] MEDS: PREGABALIN 25 MG CAP PO ×3 (09:55→20:47)
[2017-07-02] MEDS: POLYETHYLENE GLYCOL 17 GM PACKET PO ×2 (09:55→20:48)
[2017-07-02] MEDS: MEGESTROL (40 MG/ML) 10ML CUP PO ×2 (09:55→20:48)
[2017-07-02] MEDS: METOPROLOL 50 MG TAB PO ×2 (09:55→20:47)
[2017-07-02] MEDS: MULTIVIT/CA CARB/B CMPLX/FA TAB PO (09:56)
[2017-07-02] MEDS: PENTOXIFYLLINE (SR) 400 MG TAB PO ×3 (09:56→20:47)
[2017-07-02] MEDS: CILOSTAZOL 100 MG TAB PO ×2 (09:56→20:46)
[2017-07-02] MEDS: AMLODIPINE 5 MG TAB PO (09:56)
[2017-07-02] MEDS: ZYVOX 600 MG TAB PO ×2 (09:56→20:47)
[2017-07-02] MEDS: HEPARIN 5,000 UNIT/0.5 ML VIAL SC ×2 (09:59→20:49)
[2017-07-02 11:11] LABS: ADD MAN DIFF? NO
[2017-07-02 11:14] LABS: WHITE BLOOD COUNT 13.2 10^3/ul (4.8-10.8)
[2017-07-02 11:14] LABS: BASOPHILS % 0.2 % (0.0-2.0); EOSINOPHILS # 0.2 10^3/ul (0.0-0.5); EOSINOPHILS % 1.1 % (0.0-7.0); HEMATOCRIT 23.3 % (42.0-52.0); HEMOGLOBIN 7.6 g/dl (14.0-18.0); LYMPHOCYTES # 1.9 10^3/ul (0.8-2.9); MEAN CORPUSCULAR HEMOGLOBIN 33.5 pg (29.0-33.0); MEAN CORPUSCULAR HGB CONC 32.6 g/dl (32.0-37.0); MEAN CORPUSCULAR VOLUME 102.6 fl (82.0-101.0); MONOCYTE # 1.1 10^3/ul (0.3-0.9); MONOCYTES % 7.9 % (0.0-11.0); NEUTROPHIL # 10.1 10^3/ul (1.6-7.5); NEUTROPHILS % 76.3 % (39.0-77.0); PLATELET COUNT 288 10^3/UL (140-415); RED BLOOD COUNT 2.27 10^6/ul (4.70-6.10); RED CELL DISTRIBUTION WIDTH 14.8 % (11.5-14.5)
[2017-07-02 11:38] LABS: ANION GAP 18 (8-16); BLOOD UREA NITROGEN 59 mg/dl (7-20); CALCIUM 8.8 mg/dl (8.4-10.2); CARBON DIOXIDE 29 mmol/L (21-31); CHLORIDE 102 mmol/L (97-110); CREATININE 5.15 mg/dl (0.61-1.24); GLUCOSE 185 mg/dl (70-220); POTASSIUM 3.8 mmol/L (3.5-5.1); SODIUM 145 mmol/L (135-144)
[2017-07-02] MEDS: MEROPENEM 500MG/50 ML (PMX) 50 ML IVPB (17:51)
[2017-07-02] MEDS: HYDROCODONE/APAP (5/325) TAB PO (19:36)
[2017-07-03] MEDS: ACETAMINOPHEN 500 MG TAB PO ×5 (00:34→23:10)
[2017-07-03] MEDS: ACCU-CHEK XX (02:00)
[2017-07-03] MEDS: PANTOPRAZOLE (EC) 40 MG TAB PO (06:13)
[2017-07-03] MEDS: DOCUSATE SODIUM 100 MG CAP PO ×2 (06:23→18:13)
[2017-07-03] MEDS: SEVELAMER 800 MG TAB PO ×3 (07:35→17:16)
[2017-07-03] MEDS: INSULIN ASPART [NOVOLOG] 3 ML PEN SC ×4 (07:53→20:24)
[2017-07-03] MEDS: MEGESTROL (40 MG/ML) 10ML CUP PO ×2 (08:39→20:18)
[2017-07-03] MEDS: MULTIVIT/CA CARB/B CMPLX/FA TAB PO (08:40)
[2017-07-03] MEDS: LACTOBACILLUS RHAMNOSUS CAP PO ×2 (08:41→20:19)
[2017-07-03] MEDS: METOPROLOL 50 MG TAB PO ×2 (08:41→20:19)
[2017-07-03] MEDS: CILOSTAZOL 100 MG TAB PO ×2 (08:41→20:19)
[2017-07-03] MEDS: morphine (ER) 15 MG TAB PO ×2 (08:41→20:20)
[2017-07-03] MEDS: ASPIRIN (EC) 81 MG TAB PO (08:42)
[2017-07-03] MEDS: ZYVOX 600 MG TAB PO ×2 (08:42→20:20)
[2017-07-03] MEDS: AMLODIPINE 5 MG TAB PO (08:42)
[2017-07-03] MEDS: PREGABALIN 25 MG CAP PO ×3 (08:42→20:19)
[2017-07-03] MEDS: PENTOXIFYLLINE (SR) 400 MG TAB PO ×3 (08:42→20:20)
[2017-07-03] MEDS: POLYETHYLENE GLYCOL 17 GM PACKET PO ×2 (08:42→20:19)
[2017-07-03] MEDS: HEPARIN 5,000 UNIT/0.5 ML VIAL SC ×2 (08:43→20:21)
[2017-07-03] MEDS: MEROPENEM 500MG/50 ML (PMX) 50 ML IVPB (17:17)
[2017-07-04] MEDS: ACCU-CHEK XX (02:00)
[2017-07-04] MEDS: DOCUSATE SODIUM 100 MG CAP PO ×2 (03:49→18:01)
[2017-07-04] MEDS: ACETAMINOPHEN 500 MG TAB PO ×3 (03:49→17:56)
[2017-07-04] MEDS: PANTOPRAZOLE (EC) 40 MG TAB PO (03:49)
[2017-07-04] MEDS: ACETAMINOPHEN 325 MG TAB PO (03:49)
[2017-07-04] MEDS: SEVELAMER 800 MG TAB PO ×3 (07:35→17:56)
[2017-07-04] MEDS: INSULIN ASPART [NOVOLOG] 3 ML PEN SC ×4 (08:00→21:00)
[2017-07-04] MEDS: METOPROLOL 50 MG TAB PO ×2 (09:00→22:01)
[2017-07-04] MEDS: AMLODIPINE 5 MG TAB PO (09:00)
[2017-07-04] MEDS: LACTOBACILLUS RHAMNOSUS CAP PO ×2 (10:09→21:59)
[2017-07-04] MEDS: ASPIRIN (EC) 81 MG TAB PO (10:10)
[2017-07-04] MEDS: MEGESTROL (40 MG/ML) 10ML CUP PO ×2 (10:11→22:01)
[2017-07-04] MEDS: PREGABALIN 25 MG CAP PO ×3 (10:11→22:00)
[2017-07-04] MEDS: POLYETHYLENE GLYCOL 17 GM PACKET PO ×2 (10:11→21:56)
[2017-07-04] MEDS: morphine (ER) 15 MG TAB PO ×2 (10:11→22:01)
[2017-07-04] MEDS: CILOSTAZOL 100 MG TAB PO ×2 (10:12→22:17)
[2017-07-04] MEDS: MULTIVIT/CA CARB/B CMPLX/FA TAB PO (10:13)
[2017-07-04] MEDS: ZYVOX 600 MG TAB PO ×2 (10:13→21:59)
[2017-07-04] MEDS: PENTOXIFYLLINE (SR) 400 MG TAB PO ×3 (10:13→21:59)
[2017-07-04] MEDS: HEPARIN 5,000 UNIT/0.5 ML VIAL SC (10:15)
[2017-07-04 12:19] LABS: ADD MAN DIFF? NO
[2017-07-04 12:39] LABS: ABNORMAL IP MESSAGE 1; BASOPHILS % 0.2 % (0.0-2.0); EOSINOPHILS # 0.3 10^3/ul (0.0-0.5); EOSINOPHILS % 2.3 % (0.0-7.0); HEMATOCRIT 20.1 % (42.0-52.0); LYMPHOCYTES # 2.9 10^3/ul (0.8-2.9); LYMPHOCYTES % 23.6 % (15.0-51.0); MEAN CORPUSCULAR HGB CONC 32.8 g/dl (32.0-37.0); MEAN CORPUSCULAR VOLUME 100.5 fl (82.0-101.0); MEAN PLATELET VOLUME 12.1 fl (7.4-10.4); MONOCYTE # 1.1 10^3/ul (0.3-0.9); MONOCYTES % 8.7 % (0.0-11.0); NEUTROPHILS % 64.7 % (39.0-77.0); PLATELET COUNT 287 10^3/UL (140-415); POSITIVE DIFF @See below; RED CELL DISTRIBUTION WIDTH 14.5 % (11.5-14.5)
[2017-07-04 12:39] LABS: WHITE BLOOD COUNT 12.4 10^3/ul (4.8-10.8)
[2017-07-04 12:44] LABS: HEMOGLOBIN 6.6 g/dl (14.0-18.0)
[2017-07-04] MEDS: MEROPENEM 500MG/50 ML (PMX) 50 ML IVPB (16:31)
[2017-07-04] MEDS ORDERED: EPOETIN 3000 UNITS/1 ML INJ (ESRD) SC (17:00)
[2017-07-04] MEDS: EPOETIN 3000 UNITS/1 ML INJ (ESRD) SC (17:55)
[2017-07-04] MEDS: morphine 2 MG INJ IV (18:23)
[2017-07-05] MEDS: ACETAMINOPHEN 500 MG TAB PO ×5 (00:41→23:49)
[2017-07-05] MEDS: ACCU-CHEK XX (01:16)
[2017-07-05] MEDS: PANTOPRAZOLE (EC) 40 MG TAB PO (05:43)
[2017-07-05] MEDS: DOCUSATE SODIUM 100 MG CAP PO ×2 (05:43→17:31)
[2017-07-05 06:06] LABS: ADD MAN DIFF? NO
[2017-07-05 06:37] LABS: BASOPHILS % 0.2 % (0.0-2.0); EOSINOPHILS # 0.2 10^3/ul (0.0-0.5); EOSINOPHILS % 1.5 % (0.0-7.0); HEMATOCRIT 24.5 % (42.0-52.0); HEMOGLOBIN 8.1 g/dl (14.0-18.0); LYMPHOCYTES # 2.4 10^3/ul (0.8-2.9); LYMPHOCYTES % 22.3 % (15.0-51.0); MEAN CORPUSCULAR HEMOGLOBIN 31.9 pg (29.0-33.0); MEAN CORPUSCULAR HGB CONC 33.1 g/dl (32.0-37.0); MEAN CORPUSCULAR VOLUME 96.5 fl (82.0-101.0); MEAN PLATELET VOLUME 12.2 fl (7.4-10.4); MONOCYTES % 9.1 % (0.0-11.0); NEUTROPHIL # 7.2 10^3/ul (1.6-7.5); NEUTROPHILS % 66.4 % (39.0-77.0); PLATELET COUNT 285 10^3/UL (140-415); RED BLOOD COUNT 2.54 10^6/ul (4.70-6.10); RED CELL DISTRIBUTION WIDTH 15.7 % (11.5-14.5)
[2017-07-05 06:37] LABS: WHITE BLOOD COUNT 10.8 10^3/ul (4.8-10.8)
[2017-07-05 07:41] LABS: ANION GAP 20 (8-16); BLOOD UREA NITROGEN 78 mg/dl (7-20); CALCIUM 8.7 mg/dl (8.4-10.2); CARBON DIOXIDE 29 mmol/L (21-31); CHLORIDE 90 mmol/L (97-110); CREATININE 5.78 mg/dl (0.61-1.24); GLUCOSE 88 mg/dl (70-220); POTASSIUM 5.5 mmol/L (3.5-5.1); SODIUM 133 mmol/L (135-144)
[2017-07-05] MEDS: SEVELAMER 800 MG TAB PO ×3 (07:59→17:29)
[2017-07-05] MEDS: INSULIN ASPART [NOVOLOG] 3 ML PEN SC ×4 (08:00→21:00)
[2017-07-05] MEDS: LACTOBACILLUS RHAMNOSUS CAP PO ×2 (09:23→21:51)
[2017-07-05] MEDS: MULTIVIT/CA CARB/B CMPLX/FA TAB PO (09:23)
[2017-07-05] MEDS: MEGESTROL (40 MG/ML) 10ML CUP PO ×2 (09:23→21:58)
[2017-07-05] MEDS: PENTOXIFYLLINE (SR) 400 MG TAB PO ×3 (09:23→21:52)
[2017-07-05] MEDS: PREGABALIN 25 MG CAP PO ×3 (09:23→21:52)
[2017-07-05] MEDS: ASPIRIN (EC) 81 MG TAB PO (09:24)
[2017-07-05] MEDS: ZYVOX 600 MG TAB PO ×2 (09:24→21:52)
[2017-07-05] MEDS: POLYETHYLENE GLYCOL 17 GM PACKET PO ×2 (09:24→21:51)
[2017-07-05] MEDS: CILOSTAZOL 100 MG TAB PO ×2 (09:24→21:51)
[2017-07-05] MEDS: morphine (ER) 15 MG TAB PO ×2 (09:24→21:54)
[2017-07-05] MEDS: METOPROLOL 50 MG TAB PO ×2 (09:25→21:54)
[2017-07-05] MEDS: AMLODIPINE 5 MG TAB PO (09:25)
[2017-07-05] MEDS: NA POLYST SULFON 15 GM/60 ML BTL PO (12:50)
[2017-07-05 15:33] LABS: IMMEDIATE SPIN CROSSMATCH 1 3
[2017-07-05] MEDS: MEROPENEM 500MG/50 ML (PMX) 50 ML IVPB (17:00)
[2017-07-06] MEDS: ACCU-CHEK XX (02:00)
[2017-07-06] MEDS: ACETAMINOPHEN 500 MG TAB PO ×3 (05:47→17:16)
[2017-07-06] MEDS: PANTOPRAZOLE (EC) 40 MG TAB PO (05:47)
[2017-07-06] MEDS: DOCUSATE SODIUM 100 MG CAP PO ×2 (05:48→17:16)
[2017-07-06 06:46] LABS: ANION GAP 24 (8-16); BLOOD UREA NITROGEN 116 mg/dl (7-20); CALCIUM 8.9 mg/dl (8.4-10.2); CARBON DIOXIDE 25 mmol/L (21-31); CHLORIDE 90 mmol/L (97-110); CREATININE 6.95 mg/dl (0.61-1.24); GLUCOSE 86 mg/dl (70-220); POTASSIUM 5.6 mmol/L (3.5-5.1); SODIUM 133 mmol/L (135-144)
[2017-07-06] MEDS: SEVELAMER 800 MG TAB PO ×3 (07:51→17:16)
[2017-07-06] MEDS: INSULIN ASPART [NOVOLOG] 3 ML PEN SC ×4 (07:54→21:00)
[2017-07-06] MEDS: MEGESTROL (40 MG/ML) 10ML CUP PO ×2 (08:59→23:10)
[2017-07-06] MEDS: LACTOBACILLUS RHAMNOSUS CAP PO ×2 (08:59→23:10)
[2017-07-06] MEDS: CILOSTAZOL 100 MG TAB PO ×2 (08:59→23:10)
[2017-07-06] MEDS: PENTOXIFYLLINE (SR) 400 MG TAB PO ×3 (09:00→23:11)
[2017-07-06] MEDS: morphine (ER) 15 MG TAB PO ×2 (09:00→23:11)
[2017-07-06] MEDS: MULTIVIT/CA CARB/B CMPLX/FA TAB PO (09:00)
[2017-07-06] MEDS: ZYVOX 600 MG TAB PO ×2 (09:00→23:10)
[2017-07-06] MEDS: METOPROLOL 50 MG TAB PO ×2 (09:01→23:11)
[2017-07-06] MEDS: POLYETHYLENE GLYCOL 17 GM PACKET PO ×2 (09:02→23:12)
[2017-07-06] MEDS: ASPIRIN (EC) 81 MG TAB PO (09:02)
[2017-07-06] MEDS: AMLODIPINE 5 MG TAB PO (09:03)
[2017-07-06] MEDS: PREGABALIN 25 MG CAP PO ×3 (09:06→23:10)
[2017-07-06] MEDS: NA POLYST SULFON 15 GM/60 ML BTL PO (12:12)
[2017-07-06] MEDS: MEROPENEM 500MG/50 ML (PMX) 50 ML IVPB (17:15)
[2017-07-07] MEDS: ACCU-CHEK XX (02:00)
[2017-07-07] MEDS: ACETAMINOPHEN 500 MG TAB PO ×5 (05:11→23:38)
[2017-07-07] MEDS: PANTOPRAZOLE (EC) 40 MG TAB PO (05:11)
[2017-07-07] MEDS: DOCUSATE SODIUM 100 MG CAP PO ×2 (05:13→21:27)
[2017-07-07 05:29] LABS: ADD MAN DIFF? NO
[2017-07-07 05:39] LABS: WHITE BLOOD COUNT 10.8 10^3/ul (4.8-10.8)
[2017-07-07 05:39] LABS: BASOPHILS % 0.2 % (0.0-2.0); EOSINOPHILS # 0.3 10^3/ul (0.0-0.5); EOSINOPHILS % 2.8 % (0.0-7.0); HEMATOCRIT 29.4 % (42.0-52.0); HEMOGLOBIN 9.8 g/dl (14.0-18.0); LYMPHOCYTES # 2.3 10^3/ul (0.8-2.9); MEAN CORPUSCULAR HEMOGLOBIN 32.1 pg (29.0-33.0); MEAN CORPUSCULAR HGB CONC 33.3 g/dl (32.0-37.0); MEAN CORPUSCULAR VOLUME 96.4 fl (82.0-101.0); MEAN PLATELET VOLUME 12.3 fl (7.4-10.4); MONOCYTE # 1.2 10^3/ul (0.3-0.9); MONOCYTES % 11.3 % (0.0-11.0); NEUTROPHIL # 6.9 10^3/ul (1.6-7.5); NEUTROPHILS % 64.1 % (39.0-77.0); PLATELET COUNT 271 10^3/UL (140-415); RED BLOOD COUNT 3.05 10^6/ul (4.70-6.10); RED CELL DISTRIBUTION WIDTH 15.6 % (11.5-14.5)
[2017-07-07 06:26] LABS: ANION GAP 26 (8-16); CALCIUM 8.2 mg/dl (8.4-10.2); CARBON DIOXIDE 25 mmol/L (21-31); CHLORIDE 88 mmol/L (97-110); CREATININE 8.28 mg/dl (0.61-1.24); GLUCOSE 133 mg/dl (70-220); POTASSIUM 5.4 mmol/L (3.5-5.1); SODIUM 134 mmol/L (135-144)
[2017-07-07 06:44] LABS: BLOOD UREA NITROGEN 132 mg/dl (7-20)
[2017-07-07] MEDS: INSULIN ASPART [NOVOLOG] 3 ML PEN SC ×4 (08:00→21:35)
[2017-07-07] MEDS: LACTOBACILLUS RHAMNOSUS CAP PO ×2 (08:43→21:28)
[2017-07-07] MEDS: POLYETHYLENE GLYCOL 17 GM PACKET PO ×2 (08:43→21:37)
[2017-07-07] MEDS: MULTIVIT/CA CARB/B CMPLX/FA TAB PO (08:43)
[2017-07-07] MEDS: MEGESTROL (40 MG/ML) 10ML CUP PO (08:43)
[2017-07-07] MEDS: METOPROLOL 50 MG TAB PO ×2 (08:43→21:29)
[2017-07-07] MEDS: AMLODIPINE 5 MG TAB PO (08:44)
[2017-07-07] MEDS: ASPIRIN (EC) 81 MG TAB PO (08:44)
[2017-07-07] MEDS: morphine (ER) 15 MG TAB PO ×2 (08:44→21:30)
[2017-07-07] MEDS: CILOSTAZOL 100 MG TAB PO ×2 (08:44→21:33)
[2017-07-07] MEDS: PENTOXIFYLLINE (SR) 400 MG TAB PO ×3 (08:44→21:30)
[2017-07-07] MEDS: ZYVOX 600 MG TAB PO ×2 (08:44→21:30)
[2017-07-07] MEDS: PREGABALIN 25 MG CAP PO ×3 (08:45→21:28)
[2017-07-07] MEDS: SEVELAMER 800 MG TAB PO ×3 (08:45→17:35)
[2017-07-07] MEDS: EPOETIN 3000 UNITS/1 ML INJ (ESRD) SC (17:36)
[2017-07-07] MEDS: MEROPENEM 500MG/50 ML (PMX) 50 ML IVPB (17:36)
[2017-07-08] MEDS: ACCU-CHEK XX (02:00)
[2017-07-08] MEDS: PANTOPRAZOLE (EC) 40 MG TAB PO (05:22)
[2017-07-08] MEDS: ACETAMINOPHEN 500 MG TAB PO ×3 (05:22→17:29)
[2017-07-08] MEDS: DOCUSATE SODIUM 100 MG CAP PO ×2 (06:56→17:29)
[2017-07-08] MEDS: INSULIN ASPART [NOVOLOG] 3 ML PEN SC ×4 (08:00→21:00)
[2017-07-08] MEDS: ZYVOX 600 MG TAB PO ×2 (08:26→21:26)
[2017-07-08] MEDS: LACTOBACILLUS RHAMNOSUS CAP PO ×2 (08:26→21:26)
[2017-07-08] MEDS: SEVELAMER 800 MG TAB PO ×3 (08:26→17:29)
[2017-07-08] MEDS: PREGABALIN 25 MG CAP PO ×3 (08:26→21:26)
[2017-07-08] MEDS: CILOSTAZOL 100 MG TAB PO ×2 (08:26→21:26)
[2017-07-08] MEDS: ASPIRIN (EC) 81 MG TAB PO (08:26)
[2017-07-08] MEDS: morphine (ER) 15 MG TAB PO ×2 (08:27→21:41)
[2017-07-08] MEDS: PENTOXIFYLLINE (SR) 400 MG TAB PO ×3 (08:27→21:26)
[2017-07-08] MEDS: POLYETHYLENE GLYCOL 17 GM PACKET PO ×2 (08:29→21:25)
[2017-07-08] MEDS: METOPROLOL 50 MG TAB PO ×2 (08:31→21:27)
[2017-07-08] MEDS: AMLODIPINE 5 MG TAB PO (08:32)
[2017-07-08] MEDS: MULTIVIT/CA CARB/B CMPLX/FA TAB PO (08:35)
[2017-07-08] MEDS: MEROPENEM 500MG/50 ML (PMX) 50 ML IVPB (17:29)
[2017-07-09] MEDS: ACCU-CHEK XX (01:00)
[2017-07-09] MEDS: PANTOPRAZOLE (EC) 40 MG TAB PO (06:07)
[2017-07-09] MEDS: ACETAMINOPHEN 500 MG TAB PO ×5 (06:07→23:22)
[2017-07-09] MEDS: DOCUSATE SODIUM 100 MG CAP PO ×2 (06:07→18:17)
[2017-07-09] MEDS: INSULIN ASPART [NOVOLOG] 3 ML PEN SC ×4 (08:00→20:58)
[2017-07-09] MEDS: POLYETHYLENE GLYCOL 17 GM PACKET PO ×2 (08:50→20:57)
[2017-07-09] MEDS: PENTOXIFYLLINE (SR) 400 MG TAB PO ×3 (08:51→20:57)
[2017-07-09] MEDS: ZYVOX 600 MG TAB PO (08:51)
[2017-07-09] MEDS: LACTOBACILLUS RHAMNOSUS CAP PO ×2 (08:51→20:57)
[2017-07-09] MEDS: MULTIVIT/CA CARB/B CMPLX/FA TAB PO (08:51)
[2017-07-09] MEDS: ASPIRIN (EC) 81 MG TAB PO (08:52)
[2017-07-09] MEDS: morphine (ER) 15 MG TAB PO ×2 (08:52→20:56)
[2017-07-09] MEDS: PREGABALIN 25 MG CAP PO ×3 (08:52→20:56)
[2017-07-09] MEDS: SEVELAMER 800 MG TAB PO ×3 (08:52→18:15)
[2017-07-09] MEDS: CILOSTAZOL 100 MG TAB PO ×2 (08:53→20:57)
[2017-07-09] MEDS: METOPROLOL 50 MG TAB PO ×2 (09:00→20:58)
[2017-07-09 14:23] LABS: ADD MAN DIFF? NO
[2017-07-09 14:25] LABS: WHITE BLOOD COUNT 11.4 10^3/ul (4.8-10.8)
[2017-07-09 14:25] LABS: BASOPHILS % 0.3 % (0.0-2.0); EOSINOPHILS # 0.4 10^3/ul (0.0-0.5); EOSINOPHILS % 3.8 % (0.0-7.0); HEMATOCRIT 28.2 % (42.0-52.0); HEMOGLOBIN 9.7 g/dl (14.0-18.0); LYMPHOCYTES # 2.1 10^3/ul (0.8-2.9); LYMPHOCYTES % 18.4 % (15.0-51.0); MEAN CORPUSCULAR HEMOGLOBIN 32.6 pg (29.0-33.0); MEAN CORPUSCULAR HGB CONC 34.4 g/dl (32.0-37.0); MEAN CORPUSCULAR VOLUME 94.6 fl (82.0-101.0); MEAN PLATELET VOLUME 12.1 fl (7.4-10.4); MONOCYTE # 1.4 10^3/ul (0.3-0.9); MONOCYTES % 11.8 % (0.0-11.0); NEUTROPHIL # 7.5 10^3/ul (1.6-7.5); NEUTROPHILS % 65.3 % (39.0-77.0); PLATELET COUNT 251 10^3/UL (140-415); RED BLOOD COUNT 2.98 10^6/ul (4.70-6.10); RED CELL DISTRIBUTION WIDTH 15.1 % (11.5-14.5)
[2017-07-09 17:21] LABS: ANION GAP 19 (8-16); BLOOD UREA NITROGEN 78 mg/dl (7-20); CALCIUM 8.6 mg/dl (8.4-10.2); CARBON DIOXIDE 27 mmol/L (21-31); CHLORIDE 95 mmol/L (97-110); GLUCOSE 112 mg/dl (70-220); POTASSIUM 4.1 mmol/L (3.5-5.1); SODIUM 137 mmol/L (135-144)
[2017-07-09] MEDS: EPOETIN 3000 UNITS/1 ML INJ (ESRD) SC (18:16)
[2017-07-09] MEDS: AMLODIPINE 5 MG TAB PO (18:20)
[2017-07-10] MEDS: ACCU-CHEK XX (01:11)
[2017-07-10] MEDS: ACETAMINOPHEN 325 MG TAB PO (01:53)
[2017-07-10] MEDS: ACETAMINOPHEN 500 MG TAB PO ×2 (05:42→12:29)
[2017-07-10] MEDS: DOCUSATE SODIUM 100 MG CAP PO (05:42)
[2017-07-10] MEDS: PANTOPRAZOLE (EC) 40 MG TAB PO (05:53)
[2017-07-10] MEDS: INSULIN ASPART [NOVOLOG] 3 ML PEN SC ×2 (08:00→12:00)
[2017-07-10] MEDS: PENTOXIFYLLINE (SR) 400 MG TAB PO ×2 (08:28→12:29)
[2017-07-10] MEDS: SEVELAMER 800 MG TAB PO ×2 (08:28→12:29)
[2017-07-10] MEDS: MULTIVIT/CA CARB/B CMPLX/FA TAB PO (08:28)
[2017-07-10] MEDS: PREGABALIN 25 MG CAP PO ×2 (08:28→12:29)
[2017-07-10] MEDS: CILOSTAZOL 100 MG TAB PO (08:28)
[2017-07-10] MEDS: LACTOBACILLUS RHAMNOSUS CAP PO (08:28)
[2017-07-10] MEDS: ASPIRIN (EC) 81 MG TAB PO (08:35)
[2017-07-10] MEDS: morphine (ER) 15 MG TAB PO (08:35)
[2017-07-10] MEDS: POLYETHYLENE GLYCOL 17 GM PACKET PO (08:35)
[2017-07-10] MEDS: AMLODIPINE 5 MG TAB PO (08:36)
[2017-07-10] MEDS: METOPROLOL 50 MG TAB PO (08:36)
== END 2017-07-10 16:57 | disposition home health service (06) | DRG 299 ==
LOC: MS4 19:14 → PP2 06-04 23:18 → E/R 16:11 → PP2 05-27 19:15 → MS4 18:16
PROVIDERS: Hospitalist
PROC: 06PYX3Z Removal of Infusion Device from Lower Vein, External Approach (ICD-10-PCS; principal; 2017-05-28 16:00)
PROC: B5191ZZ Fluoroscopy of Inferior Vena Cava using Low Osmolar Contrast (ICD-10-PCS; 2017-05-28 16:00)
PROC: 5A1D70Z Performance of Urinary Filtration, Intermittent, Less than 6 Hours Per Day (ICD-10-PCS; 2017-05-28 17:40)
PROC: 30233N1 Transfusion of Nonautologous Red Blood Cells into Peripheral Vein, Percutaneous Approach (ICD-10-PCS; 2017-05-28 17:40)
DX: E11.52 Type 2 diabetes mellitus with diabetic peripheral angiopathy with gangrene (principal); G93.41 Metabolic encephalopathy; J18.9 Pneumonia, unspecified organism; I96 Gangrene, not elsewhere classified; I70.261 Atherosclerosis of native arteries of extremities with gangrene, right leg; N18.6 End stage renal disease; I13.11 Hypertensive heart and chronic kidney disease without heart failure, with stage 5 chronic kidney disease, or end stage renal disease; R65.10 Systemic inflammatory response syndrome (SIRS) of non-infectious origin without acute organ dysfunction; M86.9 Osteomyelitis, unspecified; L03.115 Cellulitis of right lower limb; E11.621 Type 2 diabetes mellitus with foot ulcer; L97.519 Non-pressure chronic ulcer of other part of right foot with unspecified severity; E87.5 Hyperkalemia; D63.1 Anemia in chronic kidney disease; Z89.612 Acquired absence of left leg above knee; Z89.421 Acquired absence of other right toe(s); M85.871 Other specified disorders of bone density and structure, right ankle and foot; R41.0 Disorientation, unspecified; R44.1 Visual hallucinations; R07.9 Chest pain, unspecified; Z87.891 Personal history of nicotine dependence; E11.69 Type 2 diabetes mellitus with other specified complication; B95.2 Enterococcus as the cause of diseases classified elsewhere; B96.20 Unspecified Escherichia coli [E. coli] as the cause of diseases classified elsewhere; Z16.12 Extended spectrum beta lactamase (ESBL) resistance
CPT/HCPCS: 36415; 36430; 36600; 70450; 71010; 73630; 73718; 80048; 80053; 80061; 80170; 82550; 82553; 82607; 82728; 82746; 82803; 82962; 83036; 83540; 83735; 84100; 84132; 84439; 84443; 84484; 85025; 85378; 85610; 85651; 86592; 86850; 86900; 86901; 86920; 87040; 87070; 87081; 90935; 93005; 93922; 93931; 94664; 96374; 97110; 97116; 97162; 97530; 97542; 99285-25

== ENCOUNTER 2017-08-11 13:30 | Day surgery (SDC) | payer OTHER ==
[~2017-08-11 13:30] MED LIST: CEFAZOLIN 2 GM/50 ML (PMX) 50 ML IVPB
[2017-08-11 15:03] LABS: POTASSIUM 4.2 mmol/L (3.5-5.1)
[2017-08-11] MEDS ORDERED: METOCLOPRAMIDE 10 MG INJ IV ×2 (16:30→17:30)
[2017-08-11] MEDS ORDERED: HYDROmorphONE (0.2 MG/ML) 10ML SYG IV ×2 (16:30)
[2017-08-11] MEDS ORDERED: DIPHENHYDRAMINE 50 MG INJ IV ×2 (16:30→17:30)
[2017-08-11] MEDS ORDERED: ALBUTEROL 0.083% (NEB) 2.5 MG/3 ML AMP HHN (16:30)
[2017-08-11] MEDS ORDERED: FENTAnyl 50 MCG/ML VIAL IV ×5 (16:30→17:30)
[2017-08-11] MEDS ORDERED: LIDOCAINE 2% (MDV) 20 ML INJ (16:36)
[2017-08-11] MEDS: POLYMYXIN/BACITRACIN 1L IRRIG (16:57)
[2017-08-11] MEDS ORDERED: FENTAnyl 50 MCG/ML VIAL (17:05)
[2017-08-11] MEDS ORDERED: ROCURONIUM 50 MG INJ (17:28)
[2017-08-11] MEDS ORDERED: SUCCINYLCHOLINE CHLORIDE 100 MG/5 ML SYG IV (17:28)
[2017-08-11] MEDS ORDERED: CEFAZOLIN 1 GM INJ (17:28)
[2017-08-11] MEDS ORDERED: LIDOCAINE 2% (SDV) 5 ML INJ (17:28)
[2017-08-11] MEDS ORDERED: PROPOFOL 20 ML (17:28)
[2017-08-11] MEDS ORDERED: SUGAMMADEX SODIUM 200 MG/2 ML VIAL IV (17:28)
[2017-08-11] MEDS ORDERED: LABETALOL HCL 20MG INJ IV (17:30)
[2017-08-11] MEDS ORDERED: ONDANSETRON 4 MG INJ IV (17:30)
[2017-08-11] MEDS: BUPIVACAINE 0.5% (SDV) 30 ML INJ ×2 (17:42→17:56)
[2017-08-11] MEDS: MEPERIDINE 25 MG INJ IV (18:33)
[2017-08-11] MEDS: ONDANSETRON 4 MG INJ IV (18:34)
== END 2017-08-11 19:28 | disposition home or self-care (01) ==
LOC: SDS 13:30
DX: I96 Gangrene, not elsewhere classified (principal); I73.9 Peripheral vascular disease, unspecified; G62.9 Polyneuropathy, unspecified; I25.10 Atherosclerotic heart disease of native coronary artery without angina pectoris; I12.0 Hypertensive chronic kidney disease with stage 5 chronic kidney disease or end stage renal disease; E11.22 Type 2 diabetes mellitus with diabetic chronic kidney disease; N18.6 End stage renal disease; Z99.2 Dependence on renal dialysis; E78.5 Hyperlipidemia, unspecified
CPT/HCPCS: 28805; 73630; 82962; 84132; 88304; 88311

== ENCOUNTER 2017-09-01 06:41 | Day surgery (SDC) | payer OTHER ==
[2017-09-01 06:56] LABS: ADD MAN DIFF? NO
[2017-09-01 07:00] LABS: ABNORMAL IP MESSAGE 1; BASOPHIL # 0.1 10^3/ul (0.0-0.1); BASOPHILS % 0.3 % (0.0-2.0); EOSINOPHILS # 0.3 10^3/ul (0.0-0.5); EOSINOPHILS % 1.7 % (0.0-7.0); HEMATOCRIT 31.8 % (42.0-52.0); HEMOGLOBIN 10.5 g/dl (14.0-18.0); LYMPHOCYTES # 1.6 10^3/ul (0.8-2.9); LYMPHOCYTES % 9.6 % (15.0-51.0); MEAN CORPUSCULAR HEMOGLOBIN 34.4 pg (29.0-33.0); MEAN CORPUSCULAR VOLUME 104.3 fl (82.0-101.0); MONOCYTE # 1.6 10^3/ul (0.3-0.9); MONOCYTES % 9.4 % (0.0-11.0); NEUTROPHIL # 13.1 10^3/ul (1.6-7.5); NEUTROPHILS % 78.3 % (39.0-77.0); PLATELET COUNT 585 10^3/UL (140-415); POSITIVE DIFF @See below; RED BLOOD COUNT 3.05 10^6/ul (4.70-6.10); RED CELL DISTRIBUTION WIDTH 17.1 % (11.5-14.5)
[2017-09-01 07:00] LABS: WHITE BLOOD COUNT 16.7 10^3/ul (4.8-10.8)
[2017-09-01 07:08] LABS: HOLD TRANSMISSIONS 1; INR 1.19; PROTIME 15.3 Sec (11.9-14.9); PT RATIO 1.2
[2017-09-01 07:10] LABS: ALANINE AMINOTRANSFERASE 32 IU/L (13-69); ALBUMIN 3.6 g/dl (3.3-4.9); ALBUMIN/GLOBULIN RATIO 0.97; ALKALINE PHOSPHATASE 190 IU/L (42-121); ANION GAP 20 (8-16); ASPARTATE AMINO TRANSFERASE 22 IU/L (15-46); CARBON DIOXIDE 28 mmol/L (21-31); CHLORIDE 93 mmol/L (97-110); GLUCOSE 89 mg/dl (70-220); TOTAL PROTEIN 7.3 g/dl (6.1-8.1)
[2017-09-01 07:14] LABS: BLOOD UREA NITROGEN 48 mg/dl (7-20); CALCIUM 8.9 mg/dl (8.4-10.2); CREATININE 5.35 mg/dl (0.61-1.24); POTASSIUM 3.6 mmol/L (3.5-5.1); SODIUM 137 mmol/L (135-144)
[2017-09-01 09:03] LABS: PARTIAL THROMBOPLASTIN TIME 40.2 Sec (25.0-35.0)
[2017-09-01] MEDS ORDERED: ONDANSETRON 4 MG INJ IV (11:00)
[2017-09-01] MEDS ORDERED: HYDROCODONE/APAP (5/325) TAB (11:26)
[2017-09-01] MEDS: HYDROCODONE/APAP (5/325) TAB PO ×2 (12:05→18:12)
[2017-09-01] MEDS ORDERED: morphine (1 MG/ML) 10ML SYRINGE IV (14:56)
[2017-09-01] MEDS: morphine 2 MG INJ IV (15:44)
[2017-09-01] MEDS: CLOPIDOGREL 75 MG TAB PO (20:10)
== END 2017-09-01 20:13 | disposition home or self-care (01) ==
LOC: SDS 06:41
DX: I70.261 Atherosclerosis of native arteries of extremities with gangrene, right leg (principal); I70.202 Unspecified atherosclerosis of native arteries of extremities, left leg; I12.0 Hypertensive chronic kidney disease with stage 5 chronic kidney disease or end stage renal disease; E11.22 Type 2 diabetes mellitus with diabetic chronic kidney disease; N18.6 End stage renal disease; Z99.2 Dependence on renal dialysis; D63.8 Anemia in other chronic diseases classified elsewhere; Z87.891 Personal history of nicotine dependence; Z89.612 Acquired absence of left leg above knee; Z89.431 Acquired absence of right foot; Z88.1 Allergy status to other antibiotic agents; Z82.49 Family history of ischemic heart disease and other diseases of the circulatory system; Z83.3 Family history of diabetes mellitus
CPT/HCPCS: 37225; 71045; 75716; 80053; 82962; 85025; 85610; 85730; 93005

== ENCOUNTER 2017-09-29 21:50 | Inpatient (IN) | payer OTHER ==
[2017-09-30] MEDS: ONDANSETRON 4 MG INJ IV ×2 (02:14→05:06)
[2017-09-30] MEDS: morphine 4 MG/ML VIAL IV (02:14)
[2017-09-30 02:27] LABS: ADD MAN DIFF? NO
[2017-09-30 02:33] LABS: BASOPHIL # 0.1 10^3/ul (0.0-0.1); BASOPHILS % 0.6 % (0.0-2.0); EOSINOPHILS # 0.2 10^3/ul (0.0-0.5); EOSINOPHILS % 1.6 % (0.0-7.0); HEMATOCRIT 35.6 % (42.0-52.0); HEMOGLOBIN 11.2 g/dl (14.0-18.0); LYMPHOCYTES # 1.3 10^3/ul (0.8-2.9); MEAN CORPUSCULAR HEMOGLOBIN 33.3 pg (29.0-33.0); MEAN CORPUSCULAR HGB CONC 31.5 g/dl (32.0-37.0); MEAN PLATELET VOLUME 9.9 fl (7.4-10.4); MONOCYTES % 8.8 % (0.0-11.0); NEUTROPHIL # 8.9 10^3/ul (1.6-7.5); NEUTROPHILS % 77.2 % (39.0-77.0); PLATELET COUNT 469 10^3/UL (140-415); RED BLOOD COUNT 3.36 10^6/ul (4.70-6.10); RED CELL DISTRIBUTION WIDTH 14.9 % (11.5-14.5)
[2017-09-30 02:33] LABS: WHITE BLOOD COUNT 11.5 10^3/ul (4.8-10.8)
[2017-09-30 02:50] LABS: ALANINE AMINOTRANSFERASE 48 IU/L (13-69); ALBUMIN 3.7 g/dl (3.3-4.9); ALBUMIN/GLOBULIN RATIO 0.86; ALKALINE PHOSPHATASE 200 IU/L (42-121); ANION GAP 22 (8-16); ASPARTATE AMINO TRANSFERASE 30 IU/L (15-46); BLOOD UREA NITROGEN 42 mg/dl (7-20); CALCIUM 9.2 mg/dl (8.4-10.2); CARBON DIOXIDE 29 mmol/L (21-31); CHLORIDE 97 mmol/L (97-110); CREATININE 4.83 mg/dl (0.61-1.24); GLUCOSE 149 mg/dl (70-220); LIPASE 14 U/L (23-300); POTASSIUM 4.6 mmol/L (3.5-5.1); SODIUM 143 mmol/L (135-144)
[2017-09-30] MEDS: HYDROmorphONE 0.5 MG/0.5 ML SYG IV ×4 (05:06→20:45)
[2017-09-30] MEDS ORDERED: ONDANSETRON 4 MG INJ IV (06:30)
[2017-09-30] MEDS ORDERED: NACL 0.9% 3 ML SYG IV (06:30)
[2017-09-30] MEDS: LEVOFLOXACIN 750MG/D5W (PMX) 150 ML IVPB (07:31)
[2017-09-30] MEDS: INSULIN ASPART [NOVOLOG] 3 ML PEN SC ×4 (08:37→20:41)
[2017-09-30] MEDS: SOD CHLORIDE 0.9% 1,000 ML IV ×2 (09:08→18:44)
[2017-09-30] MEDS: CILOSTAZOL 100 MG TAB PO ×2 (11:58→20:39)
[2017-09-30] MEDS: GABAPENTIN 300 MG CAP PO ×2 (11:59→20:40)
[2017-09-30] MEDS: PANTOPRAZOLE (EC) 40 MG TAB PO (11:59)
[2017-09-30] MEDS: METOPROLOL 50 MG TAB PO ×2 (12:00→20:40)
[2017-09-30] MEDS: AMLODIPINE 5 MG TAB PO (12:00)
[2017-09-30] MEDS: LINEZOLID 600 MG/D5W (PMX) 300 ML IVPB ×2 (12:37→20:40)
[2017-09-30] MEDS ORDERED: GLUCOSE GEL 15 GRAM TUBE BUCCAL (13:00)
[2017-09-30] MEDS ORDERED: GLUCAGON 1 MG INJ IM (13:00)
[2017-09-30] MEDS ORDERED: GLUCOSE GEL 15 GRAM TUBE PO ×2 (13:00)
[2017-09-30] MEDS ORDERED: DEXTROSE 50% 50 ML SYRINGE IV ×2 (13:00)
[2017-09-30] MEDS ORDERED: PENDING SANTYL ORDER FOR WOUND CARE XX (16:30)
[2017-09-30] MEDS: DOCUSATE SODIUM 100 MG CAP PO (18:50)
[2017-09-30 18:57] LABS: CK-MB 2.99 ng/ml (0.0-2.4); TROPONIN-I < 0.012 ng/ml (0.00-0.12)
[2017-09-30 20:08] LABS: CK INDEX 6.5; CREATINE KINASE 46 IU/L (23-200)
[2017-09-30] MEDS: HEPARIN 5,000 UNIT/0.5 ML VIAL SC (20:43)
[2017-09-30 23:37] LABS: FOLATE > 20.0 ng/ml (2.8-20.0)
[2017-10-01] MEDS: INSULIN ASPART [NOVOLOG] 3 ML PEN SC ×6 (00:38→21:00)
[2017-10-01] MEDS: HYDROmorphONE 0.5 MG/0.5 ML SYG IV ×5 (01:16→21:24)
[2017-10-01 01:19] LABS: CREATINE KINASE 46 IU/L (23-200)
[2017-10-01 01:31] LABS: CK-MB 2.75 ng/ml (0.0-2.4); TROPONIN-I < 0.012 ng/ml (0.00-0.12)
[2017-10-01] MEDS: ACCU-CHEK XX (02:00)
[2017-10-01] MEDS: PANTOPRAZOLE (EC) 40 MG TAB PO (05:37)
[2017-10-01 05:49] LABS: ADD MAN DIFF? NO
[2017-10-01 06:09] LABS: WHITE BLOOD COUNT 11.3 10^3/ul (4.8-10.8)
[2017-10-01 06:09] LABS: BASOPHILS % 0.3 % (0.0-2.0); EOSINOPHILS # 0.2 10^3/ul (0.0-0.5); EOSINOPHILS % 1.9 % (0.0-7.0); HEMATOCRIT 30.4 % (42.0-52.0); HEMOGLOBIN 9.5 g/dl (14.0-18.0); LYMPHOCYTES # 2.1 10^3/ul (0.8-2.9); LYMPHOCYTES % 18.5 % (15.0-51.0); MEAN CORPUSCULAR HGB CONC 31.3 g/dl (32.0-37.0); MEAN CORPUSCULAR VOLUME 105.6 fl (82.0-101.0); MEAN PLATELET VOLUME 9.9 fl (7.4-10.4); MONOCYTE # 1.3 10^3/ul (0.3-0.9); MONOCYTES % 11.2 % (0.0-11.0); NEUTROPHIL # 7.7 10^3/ul (1.6-7.5); NEUTROPHILS % 67.5 % (39.0-77.0); PLATELET COUNT 420 10^3/UL (140-415); RED BLOOD COUNT 2.88 10^6/ul (4.70-6.10); RED CELL DISTRIBUTION WIDTH 14.6 % (11.5-14.5)
[2017-10-01 06:36] LABS: ALANINE AMINOTRANSFERASE 33 IU/L (13-69); ALBUMIN 2.8 g/dl (3.3-4.9); ALBUMIN/GLOBULIN RATIO 0.93; ALKALINE PHOSPHATASE 130 IU/L (42-121); ANION GAP 22 (8-16); ASPARTATE AMINO TRANSFERASE 18 IU/L (15-46); BLOOD UREA NITROGEN 62 mg/dl (7-20); CALCIUM 8.3 mg/dl (8.4-10.2); CARBON DIOXIDE 26 mmol/L (21-31); CHLORIDE 95 mmol/L (97-110); CHOL/HDL RATIO 2.9 RATIO; CHOLESTEROL 101 mg/dl (100-200); CREATININE 6.05 mg/dl (0.61-1.24); GLUCOSE 75 mg/dl (70-220); HDL CHOLESTEROL 34 mg/dl (30-78); LDL CHOLESTEROL,CALCULATED 54 mg/dl; MAGNESIUM 1.7 mg/dl (1.7-2.5); POTASSIUM 5.6 mmol/L (3.5-5.1); SODIUM 137 mmol/L (135-144); TOTAL PROTEIN 5.8 g/dl (6.1-8.1); TRIGLYCERIDES 67 mg/dl (0-149)
[2017-10-01 06:41] LABS: CREATINE KINASE 46 IU/L (23-200)
[2017-10-01 06:50] LABS: CK INDEX 6.3; TROPONIN-I 0.016 ng/ml (0.00-0.12)
[2017-10-01 06:57] LABS: CK-MB 2.91 ng/ml (0.0-2.4)
[2017-10-01 07:26] LABS: HEMOGLOBIN A1C 5.3 % (0-5.9)
[2017-10-01] MEDS: ASPIRIN 81 MG TAB PO (09:00)
[2017-10-01] MEDS: METOPROLOL 50 MG TAB PO ×2 (09:00→21:24)
[2017-10-01] MEDS: CILOSTAZOL 100 MG TAB PO ×2 (09:00→21:23)
[2017-10-01] MEDS: AMLODIPINE 5 MG TAB PO (09:00)
[2017-10-01] MEDS: GABAPENTIN 300 MG CAP PO ×2 (09:00→21:24)
[2017-10-01] MEDS: SOD CHLORIDE 0.9% 1,000 ML IV ×2 (09:24→21:20)
[2017-10-01] MEDS: LINEZOLID 600 MG/D5W (PMX) 300 ML IVPB ×2 (09:41→21:20)
[2017-10-01] MEDS: HEPARIN 5,000 UNIT/0.5 ML VIAL SC ×2 (09:47→21:30)
[2017-10-01] MEDS: REGADENOSON 0.4 MG/5 ML SYG (12:20)
[2017-10-02] MEDS: INSULIN ASPART [NOVOLOG] 3 ML PEN SC ×6 (01:44→20:40)
[2017-10-02] MEDS: HYDROmorphONE 0.5 MG/0.5 ML SYG IV ×5 (01:47→22:59)
[2017-10-02] MEDS: ACCU-CHEK XX (02:00)
[2017-10-02] MEDS: LEVOFLOXACIN 500MG/D5W (PMX) 100 ML IVPB (05:43)
[2017-10-02] MEDS: PANTOPRAZOLE (EC) 40 MG TAB PO (05:43)
[2017-10-02] MEDS: SOD CHLORIDE 0.9% 1,000 ML IV ×2 (08:14→20:37)
[2017-10-02] MEDS: ASPIRIN 81 MG TAB PO (08:25)
[2017-10-02] MEDS: AMLODIPINE 5 MG TAB PO (08:25)
[2017-10-02] MEDS: METOPROLOL 50 MG TAB PO ×2 (08:25→20:38)
[2017-10-02] MEDS: GABAPENTIN 300 MG CAP PO ×2 (08:25→20:38)
[2017-10-02] MEDS: HEPARIN 5,000 UNIT/0.5 ML VIAL SC ×2 (08:29→20:42)
[2017-10-02] MEDS: LINEZOLID 600 MG/D5W (PMX) 300 ML IVPB (08:32)
[2017-10-02] MEDS: CILOSTAZOL 100 MG TAB PO ×2 (08:32→20:37)
[2017-10-02] MEDS ORDERED: DIPHENHYDRAMINE 50 MG INJ IV (12:00)
[2017-10-02] MEDS ORDERED: VANCOMYCIN IV PER PHARMACY XX (12:00)
[2017-10-02] MEDS ORDERED: AMIKACIN IV PER PHARMACY XX (15:00)
[2017-10-02] MEDS: AMIKACIN 400 MG in SOD CHLORIDE 0.9% 100 ML IVPB (16:43)
[2017-10-02] MEDS: ZYVOX 600 MG TAB PO (20:38)
[2017-10-02] MEDS ORDERED: ALBUTEROL/IPRATROPIUM (NEB) 3 ML AMP (23:32)
[2017-10-02] MEDS: ALBUTEROL/IPRATROPIUM (NEB) 3 ML AMP HHN (23:36)
[2017-10-03] MEDS: INSULIN ASPART [NOVOLOG] 3 ML PEN SC ×6 (01:00→20:37)
[2017-10-03] MEDS: PIPER-TAZO 2.25 GM (PMX) 50 ML IVPB ×4 (01:01→21:35)
[2017-10-03] MEDS: ACCU-CHEK XX (02:00)
[2017-10-03] MEDS: SOD CHLORIDE 0.9% 1,000 ML IV ×3 (02:01→20:27)
[2017-10-03] MEDS: ACETAMINOPHEN 325 MG TAB PO ×2 (04:17→20:28)
[2017-10-03] MEDS: PANTOPRAZOLE (EC) 40 MG TAB PO (05:07)
[2017-10-03] MEDS: DOCUSATE SODIUM 100 MG CAP PO (06:39)
[2017-10-03] MEDS: ASPIRIN 81 MG TAB PO (08:13)
[2017-10-03] MEDS: ZYVOX 600 MG TAB PO ×2 (08:14→20:27)
[2017-10-03] MEDS: CILOSTAZOL 100 MG TAB PO ×2 (08:14→20:27)
[2017-10-03] MEDS: GABAPENTIN 300 MG CAP PO ×2 (08:14→20:28)
[2017-10-03] MEDS: AMLODIPINE 5 MG TAB PO (08:15)
[2017-10-03] MEDS: METOPROLOL 50 MG TAB PO ×2 (08:15→20:28)
[2017-10-03] MEDS: HEPARIN 5,000 UNIT/0.5 ML VIAL SC ×2 (08:37→20:38)
[2017-10-03 13:45] LABS: HEPATITIS B SURFACE ANTIGEN NEGATIVE (NEGATIVE)
[2017-10-03] MEDS: HYDROmorphONE 0.5 MG/0.5 ML SYG IV ×2 (16:40→20:32)
[2017-10-03] MEDS: AMIKACIN 250 MG in SOD CHLORIDE 0.9% 100 ML IVPB (17:13)
[2017-10-04] MEDS: INSULIN ASPART [NOVOLOG] 3 ML PEN SC ×6 (00:59→20:20)
[2017-10-04] MEDS: ACCU-CHEK XX (00:59)
[2017-10-04] MEDS: ACETAMINOPHEN 325 MG TAB PO ×2 (02:56→20:10)
[2017-10-04] MEDS: PANTOPRAZOLE (EC) 40 MG TAB PO (05:18)
[2017-10-04] MEDS: PIPER-TAZO 2.25 GM (PMX) 50 ML IVPB (05:19)
[2017-10-04] MEDS: BISACODYL 10 MG SUPP PR (06:27)
[2017-10-04] MEDS: HEPARIN 5,000 UNIT/0.5 ML VIAL SC ×2 (09:06→20:12)
[2017-10-04] MEDS: GABAPENTIN 300 MG CAP PO ×2 (09:07→20:11)
[2017-10-04] MEDS: METOPROLOL 50 MG TAB PO ×2 (09:07→20:11)
[2017-10-04] MEDS: AMLODIPINE 5 MG TAB PO (09:07)
[2017-10-04] MEDS: ZYVOX 600 MG TAB PO ×2 (09:07→20:11)
[2017-10-04] MEDS: CILOSTAZOL 100 MG TAB PO ×2 (09:07→20:12)
[2017-10-04] MEDS: ASPIRIN 81 MG TAB PO (09:07)
[2017-10-04] MEDS: SOD CHLORIDE 0.9% 1,000 ML IV ×2 (10:14→22:35)
[2017-10-04] MEDS: HYDROmorphONE 0.5 MG/0.5 ML SYG IV ×3 (13:11→20:03)
[2017-10-04] MEDS ORDERED: ALBUTEROL/IPRATROPIUM (NEB) 3 ML AMP HHN (21:00)
[2017-10-04 22:33] LABS: CREATINE KINASE 39 IU/L (23-200)
[2017-10-04] MEDS: LEVOFLOXACIN 750MG/D5W (PMX) 150 ML IVPB (22:35)
[2017-10-04 22:46] LABS: CK INDEX 3.5
[2017-10-04 22:47] LABS: CK-MB 1.38 ng/ml (0.0-2.4)
[2017-10-04 22:48] LABS: TROPONIN-I 0.589 ng/ml (0.00-0.12)
[2017-10-05] MEDS: INSULIN ASPART [NOVOLOG] 3 ML PEN SC ×6 (01:00→20:37)
[2017-10-05] MEDS: ACCU-CHEK XX (01:03)
[2017-10-05] MEDS: ACETAMINOPHEN 325 MG TAB PO ×2 (02:02→22:50)
[2017-10-05 04:13] LABS: CREATINE KINASE 32 IU/L (23-200)
[2017-10-05 04:27] LABS: CK INDEX 3.2
[2017-10-05 04:30] LABS: CK-MB 1.03 ng/ml (0.0-2.4); TROPONIN-I 0.729 ng/ml (0.00-0.12)
[2017-10-05] MEDS: PANTOPRAZOLE (EC) 40 MG TAB PO (05:37)
[2017-10-05] MEDS: BISACODYL 10 MG SUPP PR (05:37)
[2017-10-05] MEDS: ASPIRIN 81 MG TAB PO (09:24)
[2017-10-05] MEDS: ZYVOX 600 MG TAB PO ×2 (09:24→19:53)
[2017-10-05] MEDS: CILOSTAZOL 100 MG TAB PO ×2 (09:24→19:54)
[2017-10-05] MEDS: GABAPENTIN 300 MG CAP PO ×2 (09:24→19:54)
[2017-10-05] MEDS: HYDROmorphONE 0.5 MG/0.5 ML SYG IV ×3 (09:25→19:50)
[2017-10-05] MEDS: HEPARIN 5,000 UNIT/0.5 ML VIAL SC ×2 (09:36→20:04)
[2017-10-05 10:19] LABS: TROPONIN-I 0.752 ng/ml (0.00-0.12)
[2017-10-05] MEDS: METOPROLOL 50 MG TAB PO ×2 (10:28→19:59)
[2017-10-05] MEDS: AMLODIPINE 5 MG TAB PO (10:29)
[2017-10-05] MEDS: MEROPENEM 500MG/50 ML (PMX) 50 ML IVPB ×2 (12:12→19:54)
[2017-10-05] MEDS: ISOSORBIDE MONONITRATE 20 MG TAB PO (12:13)
[2017-10-05] MEDS: SOD CHLORIDE 0.9% 1,000 ML IV ×2 (12:13→23:44)
[2017-10-05] MEDS: ISOSORBIDE DINITRATE 10 MG TAB PO (20:37)
[2017-10-06] MEDS: HYDROmorphONE 0.5 MG/0.5 ML SYG IV ×6 (00:27→22:43)
[2017-10-06] MEDS: INSULIN ASPART [NOVOLOG] 3 ML PEN SC ×6 (00:34→21:00)
[2017-10-06] MEDS: ACCU-CHEK XX (02:00)
[2017-10-06] MEDS: SOD CHLORIDE 0.9% 1,000 ML IV ×2 (02:37→12:14)
[2017-10-06] MEDS: PANTOPRAZOLE (EC) 40 MG TAB PO (05:36)
[2017-10-06] MEDS: ACETAMINOPHEN 325 MG TAB PO (05:36)
[2017-10-06 06:26] LABS: CK INDEX 5.1; CK-MB 1.33 ng/ml (0.0-2.4); CREATINE KINASE 26 IU/L (23-200); TROPONIN-I 0.564 ng/ml (0.00-0.12)
[2017-10-06] MEDS: METOPROLOL 50 MG TAB PO ×2 (08:38→22:17)
[2017-10-06] MEDS: ISOSORBIDE DINITRATE 10 MG TAB PO ×3 (08:38→22:16)
[2017-10-06] MEDS: AMLODIPINE 5 MG TAB PO (08:46)
[2017-10-06] MEDS: MEROPENEM 500MG/50 ML (PMX) 50 ML IVPB ×2 (09:00→22:15)
[2017-10-06] MEDS: GABAPENTIN 300 MG CAP PO ×2 (09:00→22:15)
[2017-10-06] MEDS: POLYETHYLENE GLYCOL 17 GM PACKET PO (09:04)
[2017-10-06] MEDS: DOCUSATE SODIUM 100 MG CAP PO ×2 (09:06→22:14)
[2017-10-06] MEDS: CILOSTAZOL 100 MG TAB PO ×2 (09:07→22:15)
[2017-10-06] MEDS: ASPIRIN 81 MG TAB PO (09:08)
[2017-10-06] MEDS: ZYVOX 600 MG TAB PO ×2 (09:09→22:16)
[2017-10-06] MEDS: HEPARIN 5,000 UNIT/0.5 ML VIAL SC ×2 (09:13→22:26)
[2017-10-06] MEDS: AMIKACIN 250 MG in SOD CHLORIDE 0.9% 100 ML IVPB (22:14)
[2017-10-07] MEDS: ACCU-CHEK XX (02:00)
[2017-10-07] MEDS: HYDROCODONE/APAP (10/325) TAB PO ×3 (02:55→21:32)
[2017-10-07 05:36] LABS: ADD MAN DIFF? NO
[2017-10-07 05:42] LABS: BASOPHILS % 0.1 % (0.0-2.0); EOSINOPHILS % 0.1 % (0.0-7.0); HEMATOCRIT 24.9 % (42.0-52.0); HEMOGLOBIN 7.8 g/dl (14.0-18.0); LYMPHOCYTES # 0.6 10^3/ul (0.8-2.9); LYMPHOCYTES % 4.3 % (15.0-51.0); MEAN CORPUSCULAR HEMOGLOBIN 32.9 pg (29.0-33.0); MEAN CORPUSCULAR HGB CONC 31.3 g/dl (32.0-37.0); MEAN CORPUSCULAR VOLUME 105.1 fl (82.0-101.0); MEAN PLATELET VOLUME 10.7 fl (7.4-10.4); MONOCYTE # 0.5 10^3/ul (0.3-0.9); MONOCYTES % 3.4 % (0.0-11.0); NEUTROPHIL # 12.8 10^3/ul (1.6-7.5); PLATELET COUNT 211 10^3/UL (140-415); RED BLOOD COUNT 2.37 10^6/ul (4.70-6.10); RED CELL DISTRIBUTION WIDTH 14.7 % (11.5-14.5)
[2017-10-07] MEDS: NA PHOSPHATE/BIPHOS 133 ML ENEMA PR (06:14)
[2017-10-07] MEDS: PANTOPRAZOLE (EC) 40 MG TAB PO (06:14)
[2017-10-07] MEDS: HYDROmorphONE 0.5 MG/0.5 ML SYG IV ×3 (06:14→21:32)
[2017-10-07 06:33] LABS: CREATINE KINASE 162 IU/L (23-200)
[2017-10-07 07:08] LABS: MAGNESIUM 1.9 mg/dl (1.7-2.5)
[2017-10-07 07:08] LABS: PHOSPHORUS 5.3 mg/dl (2.5-4.9)
[2017-10-07 07:10] LABS: CK INDEX 3.3
[2017-10-07 07:16] LABS: CK-MB 5.37 ng/ml (0.0-2.4)
[2017-10-07 07:47] LABS: ANION GAP 20 (8-16); BLOOD UREA NITROGEN 42 mg/dl (7-20); CALCIUM 7.8 mg/dl (8.4-10.2); CARBON DIOXIDE 25 mmol/L (21-31); CHLORIDE 99 mmol/L (97-110); CREATININE 3.79 mg/dl (0.61-1.24); GLUCOSE 132 mg/dl (70-220); POTASSIUM 5.6 mmol/L (3.5-5.1); SODIUM 138 mmol/L (135-144)
[2017-10-07] MEDS: MAGNESIUM HYDROXIDE 30ML CUP PO (08:11)
[2017-10-07] MEDS: GABAPENTIN 300 MG CAP PO ×2 (08:11→21:33)
[2017-10-07] MEDS: CILOSTAZOL 100 MG TAB PO ×2 (08:11→22:19)
[2017-10-07] MEDS: ASPIRIN 81 MG TAB PO (08:12)
[2017-10-07] MEDS: ZYVOX 600 MG TAB PO ×2 (08:12→21:34)
[2017-10-07] MEDS: ISOSORBIDE DINITRATE 10 MG TAB PO ×4 (08:13→21:34)
[2017-10-07] MEDS: MEROPENEM 500MG/50 ML (PMX) 50 ML IVPB ×2 (08:13→23:49)
[2017-10-07] MEDS: DOCUSATE SODIUM 100 MG CAP PO ×2 (08:13→21:33)
[2017-10-07] MEDS: HEPARIN 5,000 UNIT/0.5 ML VIAL SC ×2 (08:14→22:13)
[2017-10-07] MEDS: AMLODIPINE 5 MG TAB PO (08:15)
[2017-10-07] MEDS: INSULIN ASPART [NOVOLOG] 3 ML PEN SC ×4 (08:17→21:00)
[2017-10-07] MEDS: POLYETHYLENE GLYCOL 17 GM PACKET PO (08:26)
[2017-10-07] MEDS: METOPROLOL 50 MG TAB PO ×3 (08:27→21:34)
[2017-10-07] MEDS: NITROGLYCERIN (SL) 0.4 MG TAB SL (10:05)
[2017-10-07] MEDS: SOD CHLORIDE 0.9% 250 ML IV* (10:22)
[2017-10-07] MEDS: NA POLYST SULFON 15 GM/60 ML BTL PO (11:06)
[2017-10-07 11:36] LABS: CREATINE KINASE 245 IU/L (23-200)
[2017-10-07 11:45] LABS: CK INDEX 2.9
[2017-10-07 11:48] LABS: CK-MB 7.16 ng/ml (0.0-2.4)
[2017-10-07 18:04] LABS: CREATINE KINASE 189 IU/L (23-200)
[2017-10-07 18:17] LABS: CK INDEX 3.7
[2017-10-07 18:20] LABS: CK-MB 7.01 ng/ml (0.0-2.4)
[2017-10-08] MEDS: ACCU-CHEK XX (02:00)
[2017-10-08] MEDS: HYDROmorphONE 0.5 MG/0.5 ML SYG IV ×3 (02:14→21:06)
[2017-10-08] MEDS: HYDROCODONE/APAP (10/325) TAB PO ×2 (02:15→06:05)
[2017-10-08] MEDS: PANTOPRAZOLE (EC) 40 MG TAB PO (06:04)
[2017-10-08] MEDS: INSULIN ASPART [NOVOLOG] 3 ML PEN SC ×4 (07:55→21:00)
[2017-10-08 08:14] LABS: ADD MAN DIFF? NO
[2017-10-08] MEDS: POLYETHYLENE GLYCOL 17 GM PACKET PO (08:15)
[2017-10-08] MEDS: CILOSTAZOL 100 MG TAB PO ×2 (08:16→21:11)
[2017-10-08] MEDS: ISOSORBIDE DINITRATE 10 MG TAB PO ×3 (08:16→21:11)
[2017-10-08] MEDS: ASPIRIN 81 MG TAB PO (08:17)
[2017-10-08] MEDS: DOCUSATE SODIUM 100 MG CAP PO ×2 (08:17→21:10)
[2017-10-08] MEDS: MAGNESIUM HYDROXIDE 30ML CUP PO (08:17)
[2017-10-08] MEDS: GABAPENTIN 300 MG CAP PO ×2 (08:17→21:11)
[2017-10-08] MEDS: ZYVOX 600 MG TAB PO ×2 (08:17→21:11)
[2017-10-08 08:18] LABS: WHITE BLOOD COUNT 10.3 10^3/ul (4.8-10.8)
[2017-10-08 08:18] LABS: BASOPHIL # 0.1 10^3/ul (0.0-0.1); BASOPHILS % 0.6 % (0.0-2.0); EOSINOPHILS # 0.4 10^3/ul (0.0-0.5); EOSINOPHILS % 3.6 % (0.0-7.0); HEMATOCRIT 25.6 % (42.0-52.0); HEMOGLOBIN 8.2 g/dl (14.0-18.0); LYMPHOCYTES # 1.2 10^3/ul (0.8-2.9); LYMPHOCYTES % 11.4 % (15.0-51.0); MEAN CORPUSCULAR HEMOGLOBIN 33.2 pg (29.0-33.0); MEAN CORPUSCULAR VOLUME 103.6 fl (82.0-101.0); MEAN PLATELET VOLUME 11.5 fl (7.4-10.4); MONOCYTE # 0.4 10^3/ul (0.3-0.9); NEUTROPHIL # 8.3 10^3/ul (1.6-7.5); NEUTROPHILS % 79.9 % (39.0-77.0); PLATELET COUNT 189 10^3/UL (140-415); RED BLOOD COUNT 2.47 10^6/ul (4.70-6.10); RED CELL DISTRIBUTION WIDTH 14.6 % (11.5-14.5)
[2017-10-08] MEDS: METOPROLOL 50 MG TAB PO ×2 (08:18→21:10)
[2017-10-08] MEDS: AMLODIPINE 5 MG TAB PO (08:19)
[2017-10-08] MEDS: HEPARIN 5,000 UNIT/0.5 ML VIAL SC ×2 (08:36→21:31)
[2017-10-08 08:41] LABS: ANION GAP 23 (8-16); BLOOD UREA NITROGEN 70 mg/dl (7-20); CALCIUM 7.7 mg/dl (8.4-10.2); CARBON DIOXIDE 26 mmol/L (21-31); CHLORIDE 99 mmol/L (97-110); CREATININE 4.91 mg/dl (0.61-1.24); GLUCOSE 68 mg/dl (70-220); POTASSIUM 5.1 mmol/L (3.5-5.1); SODIUM 143 mmol/L (135-144)
[2017-10-08] MEDS: MEROPENEM 500MG/50 ML (PMX) 50 ML IVPB ×2 (10:15→21:11)
[2017-10-08 17:46] LABS: IMMEDIATE SPIN CROSSMATCH 1 2
[2017-10-08] MEDS: ACETAMINOPHEN 325 MG TAB PO (23:45)
[2017-10-09] MEDS: NITROGLYCERIN (SL) 0.4 MG TAB SL (00:59)
[2017-10-09] MEDS: HYDROmorphONE 0.5 MG/0.5 ML SYG IV ×2 (01:06→14:38)
[2017-10-09] MEDS: ACCU-CHEK XX (02:00)
[2017-10-09] MEDS: PANTOPRAZOLE (EC) 40 MG TAB PO (06:17)
[2017-10-09] MEDS: ACETAMINOPHEN 325 MG TAB PO (06:17)
[2017-10-09] MEDS: INSULIN ASPART [NOVOLOG] 3 ML PEN SC ×4 (07:55→21:00)
[2017-10-09 08:03] LABS: ADD MAN DIFF? NO
[2017-10-09 08:07] LABS: BASOPHILS % 0.5 % (0.0-2.0); EOSINOPHILS # 0.2 10^3/ul (0.0-0.5); EOSINOPHILS % 2.4 % (0.0-7.0); HEMATOCRIT 29.9 % (42.0-52.0); HEMOGLOBIN 9.8 g/dl (14.0-18.0); LYMPHOCYTES # 1.1 10^3/ul (0.8-2.9); LYMPHOCYTES % 12.6 % (15.0-51.0); MEAN CORPUSCULAR HEMOGLOBIN 33.3 pg (29.0-33.0); MEAN CORPUSCULAR HGB CONC 32.8 g/dl (32.0-37.0); MEAN CORPUSCULAR VOLUME 101.7 fl (82.0-101.0); MEAN PLATELET VOLUME 11.2 fl (7.4-10.4); MONOCYTE # 0.5 10^3/ul (0.3-0.9); NEUTROPHIL # 6.6 10^3/ul (1.6-7.5); NEUTROPHILS % 77.6 % (39.0-77.0); PLATELET COUNT 181 10^3/UL (140-415); RED BLOOD COUNT 2.94 10^6/ul (4.70-6.10); RED CELL DISTRIBUTION WIDTH 16.6 % (11.5-14.5)
[2017-10-09 08:07] LABS: WHITE BLOOD COUNT 8.5 10^3/ul (4.8-10.8)
[2017-10-09 08:32] LABS: ANION GAP 21 (8-16); BLOOD UREA NITROGEN 45 mg/dl (7-20); CALCIUM 7.9 mg/dl (8.4-10.2); CARBON DIOXIDE 30 mmol/L (21-31); CHLORIDE 96 mmol/L (97-110); CREATININE 3.45 mg/dl (0.61-1.24); GLUCOSE 89 mg/dl (70-220); MAGNESIUM 2.1 mg/dl (1.7-2.5); POTASSIUM 4.1 mmol/L (3.5-5.1); SODIUM 143 mmol/L (135-144)
[2017-10-09] MEDS: POLYETHYLENE GLYCOL 17 GM PACKET PO (09:00)
[2017-10-09] MEDS: MAGNESIUM HYDROXIDE 30ML CUP PO (09:00)
[2017-10-09] MEDS: ISOSORBIDE DINITRATE 10 MG TAB PO ×3 (09:29→21:35)
[2017-10-09] MEDS: DOCUSATE SODIUM 100 MG CAP PO ×2 (09:30→21:33)
[2017-10-09] MEDS: GABAPENTIN 300 MG CAP PO ×2 (09:30→21:33)
[2017-10-09] MEDS: CILOSTAZOL 100 MG TAB PO ×2 (09:30→21:33)
[2017-10-09] MEDS: AMLODIPINE 5 MG TAB PO (09:30)
[2017-10-09] MEDS: ASPIRIN 81 MG TAB PO (09:30)
[2017-10-09] MEDS: ZYVOX 600 MG TAB PO ×2 (09:32→21:33)
[2017-10-09] MEDS: HYDROCODONE/APAP (10/325) TAB PO (09:32)
[2017-10-09] MEDS: METOPROLOL 50 MG TAB PO ×2 (09:33→21:35)
[2017-10-09] MEDS: MEROPENEM 500MG/50 ML (PMX) 50 ML IVPB ×2 (09:33→21:57)
[2017-10-09] MEDS: HEPARIN 5,000 UNIT/0.5 ML VIAL SC ×2 (09:45→21:38)
[2017-10-09] MEDS: AMIKACIN 250 MG in SOD CHLORIDE 0.9% 100 ML IVPB (13:14)
[2017-10-10] MEDS: ACCU-CHEK XX (02:00)
[2017-10-10] MEDS: PANTOPRAZOLE (EC) 40 MG TAB PO (06:54)
[2017-10-10] MEDS: INSULIN ASPART [NOVOLOG] 3 ML PEN SC ×4 (07:55→21:00)
[2017-10-10 08:03] LABS: ADD MAN DIFF? NO
[2017-10-10] MEDS: DIAZEPAM 5 MG TAB PO (08:09)
[2017-10-10] MEDS: DOCUSATE SODIUM 100 MG CAP PO ×2 (08:10→20:49)
[2017-10-10] MEDS: DIPHENHYDRAMINE 50 MG CAP PO (08:10)
[2017-10-10] MEDS: ASPIRIN 81 MG TAB PO (08:10)
[2017-10-10 08:11] LABS: BASOPHIL # 0.1 10^3/ul (0.0-0.1); BASOPHILS % 0.6 % (0.0-2.0); EOSINOPHILS # 0.3 10^3/ul (0.0-0.5); HEMATOCRIT 31.4 % (42.0-52.0); HEMOGLOBIN 10.2 g/dl (14.0-18.0); LYMPHOCYTES # 1.6 10^3/ul (0.8-2.9); LYMPHOCYTES % 15.9 % (15.0-51.0); MEAN CORPUSCULAR HEMOGLOBIN 32.8 pg (29.0-33.0); MEAN CORPUSCULAR HGB CONC 32.5 g/dl (32.0-37.0); MEAN PLATELET VOLUME 11.4 fl (7.4-10.4); MONOCYTE # 0.5 10^3/ul (0.3-0.9); MONOCYTES % 5.2 % (0.0-11.0); NEUTROPHIL # 7.5 10^3/ul (1.6-7.5); NEUTROPHILS % 74.8 % (39.0-77.0); PLATELET COUNT 169 10^3/UL (140-415); RED BLOOD COUNT 3.11 10^6/ul (4.70-6.10); RED CELL DISTRIBUTION WIDTH 15.9 % (11.5-14.5)
[2017-10-10] MEDS: ISOSORBIDE DINITRATE 10 MG TAB PO ×3 (08:12→20:50)
[2017-10-10] MEDS: MAGNESIUM HYDROXIDE 30ML CUP PO (08:13)
[2017-10-10] MEDS: POLYETHYLENE GLYCOL 17 GM PACKET PO (08:13)
[2017-10-10] MEDS: GABAPENTIN 300 MG CAP PO ×2 (08:13→20:52)
[2017-10-10] MEDS: METOPROLOL 50 MG TAB PO ×2 (08:13→20:50)
[2017-10-10] MEDS: ZYVOX 600 MG TAB PO ×2 (08:14→20:51)
[2017-10-10] MEDS: CILOSTAZOL 100 MG TAB PO ×2 (08:14→20:51)
[2017-10-10] MEDS: AMLODIPINE 5 MG TAB PO (08:14)
[2017-10-10 08:23] LABS: ANION GAP 20 (8-16); BLOOD UREA NITROGEN 69 mg/dl (7-20); CARBON DIOXIDE 27 mmol/L (21-31); CHLORIDE 100 mmol/L (97-110); CREATININE 4.78 mg/dl (0.61-1.24); GLUCOSE 78 mg/dl (70-220); MAGNESIUM 2.3 mg/dl (1.7-2.5); POTASSIUM 4.7 mmol/L (3.5-5.1); SODIUM 142 mmol/L (135-144)
[2017-10-10 08:32] LABS: INR 1.21; PROTIME 15.5 Sec (11.9-14.9); PT RATIO 1.2
[2017-10-10 08:33] LABS: PARTIAL THROMBOPLASTIN TIME 37.2 Sec (25.0-35.0)
[2017-10-10] MEDS: HEPARIN 5,000 UNIT/0.5 ML VIAL SC ×2 (09:00→21:00)
[2017-10-10] MEDS: morphine 2 MG INJ IV ×3 (10:05→22:49)
[2017-10-10] MEDS: MEROPENEM 500MG/50 ML (PMX) 50 ML IVPB ×2 (10:32→20:48)
[2017-10-10] MEDS ORDERED: MIDAZOLAM 1 MG/ML 2 ML INJ (10:35)
[2017-10-10] MEDS ORDERED: LIDOCAINE 1% (MDV) 20 ML INJ (10:35)
[2017-10-10] MEDS ORDERED: IODIXANOL LOCM 100 ML BTL ×2 (10:35→10:36)
[2017-10-10] MEDS ORDERED: FENTAnyl 50 MCG/ML VIAL (10:35)
[2017-10-10] MEDS ORDERED: SOD CHLORIDE 0.9% 500 ML (10:35)
[2017-10-10] MEDS ORDERED: HEPARIN 1000 UNITS/ML 10 ML INJ (10:36)
[2017-10-10] MEDS ORDERED: VERAPAMIL 5 MG INJ (10:36)
[2017-10-10] MEDS ORDERED: NITROGLYCERIN (IC) 100 MCG/ML INJ (10:36)
[2017-10-10] MEDS ORDERED: ASPIRIN 325 MG TAB (12:44)
[2017-10-10] MEDS ORDERED: CLOPIDOGREL 300 MG TAB (12:44)
[2017-10-10] MEDS ORDERED: ZOLPIDEM 5 MG TAB PO (14:00)
[2017-10-10] MEDS ORDERED: AL HYDROX/MG HYDROX/SIMETH 30 ML CUP PO (14:00)
[2017-10-10] MEDS ORDERED: ONDANSETRON 4 MG INJ IV (14:00)
[2017-10-10] MEDS ORDERED: morphine 2 MG INJ IV (14:00)
[2017-10-10] MEDS ORDERED: ACETAMINOPHEN 325 MG TAB PO (14:00)
[2017-10-10] MEDS: SOD CHLORIDE 0.9% 1,000 ML IV (14:10)
[2017-10-11] MEDS: ACCU-CHEK XX (01:48)
[2017-10-11] MEDS: morphine 2 MG INJ IV ×2 (03:49→10:11)
[2017-10-11] MEDS: PANTOPRAZOLE (EC) 40 MG TAB PO (06:18)
[2017-10-11 06:50] LABS: ADD MAN DIFF? NO
[2017-10-11 06:52] LABS: BASOPHILS % 0.4 % (0.0-2.0); EOSINOPHILS # 0.3 10^3/ul (0.0-0.5); EOSINOPHILS % 2.9 % (0.0-7.0); HEMATOCRIT 32.8 % (42.0-52.0); HEMOGLOBIN 10.3 g/dl (14.0-18.0); LYMPHOCYTES # 1.3 10^3/ul (0.8-2.9); LYMPHOCYTES % 12.7 % (15.0-51.0); MEAN CORPUSCULAR HEMOGLOBIN 31.9 pg (29.0-33.0); MEAN CORPUSCULAR HGB CONC 31.4 g/dl (32.0-37.0); MEAN CORPUSCULAR VOLUME 101.5 fl (82.0-101.0); MEAN PLATELET VOLUME 11.6 fl (7.4-10.4); MONOCYTE # 0.6 10^3/ul (0.3-0.9); MONOCYTES % 6.3 % (0.0-11.0); NEUTROPHIL # 7.7 10^3/ul (1.6-7.5); NEUTROPHILS % 77.3 % (39.0-77.0); PLATELET COUNT 158 10^3/UL (140-415); RED BLOOD COUNT 3.23 10^6/ul (4.70-6.10); RED CELL DISTRIBUTION WIDTH 15.7 % (11.5-14.5)
[2017-10-11 07:32] LABS: ANION GAP 18 (8-16); BLOOD UREA NITROGEN 48 mg/dl (7-20); CALCIUM 8.2 mg/dl (8.4-10.2); CARBON DIOXIDE 26 mmol/L (21-31); CHLORIDE 101 mmol/L (97-110); CREATININE 3.82 mg/dl (0.61-1.24); GLUCOSE 89 mg/dl (70-220); POTASSIUM 4.9 mmol/L (3.5-5.1); SODIUM 140 mmol/L (135-144)
[2017-10-11] MEDS: INSULIN ASPART [NOVOLOG] 3 ML PEN SC ×4 (08:00→21:00)
[2017-10-11] MEDS: METOPROLOL 50 MG TAB PO ×2 (08:13→21:06)
[2017-10-11] MEDS: CLOPIDOGREL 75 MG TAB PO (08:13)
[2017-10-11] MEDS: GABAPENTIN 300 MG CAP PO ×2 (08:13→21:06)
[2017-10-11] MEDS: DOCUSATE SODIUM 100 MG CAP PO ×2 (08:14→21:05)
[2017-10-11] MEDS: AMLODIPINE 5 MG TAB PO (08:14)
[2017-10-11] MEDS: ISOSORBIDE DINITRATE 10 MG TAB PO ×3 (08:14→21:06)
[2017-10-11] MEDS: POLYETHYLENE GLYCOL 17 GM PACKET PO (08:15)
[2017-10-11] MEDS: ASPIRIN (EC) 81 MG TAB PO (08:15)
[2017-10-11] MEDS: MAGNESIUM HYDROXIDE 30ML CUP PO (08:15)
[2017-10-11] MEDS: HEPARIN 5,000 UNIT/0.5 ML VIAL SC ×2 (09:05→21:08)
[2017-10-11] MEDS: ZYVOX 600 MG TAB PO ×2 (10:11→21:06)
[2017-10-11] MEDS: MEROPENEM 500MG/50 ML (PMX) 50 ML IVPB ×2 (10:11→21:08)
[2017-10-11] MEDS: CILOSTAZOL 100 MG TAB PO ×2 (10:11→21:05)
[2017-10-11] MEDS: ACETAMINOPHEN 325 MG TAB PO (12:29)
[2017-10-11] MEDS: HYDROmorphONE 0.5 MG/0.5 ML SYG IV (13:56)
[2017-10-11] MEDS: AMIKACIN 250 MG in SOD CHLORIDE 0.9% 100 ML IVPB (13:57)
[2017-10-11] MEDS: HYDROmorphONE 2 MG TAB PO (21:07)
[2017-10-11] MEDS: LACTOBACILLUS RHAMNOSUS CAP PO (21:09)
[2017-10-12] MEDS: morphine 2 MG INJ IV ×2 (00:12→06:47)
[2017-10-12] MEDS: ACCU-CHEK XX (02:00)
[2017-10-12 07:35] LABS: ADD MAN DIFF? NO
[2017-10-12 07:47] LABS: WHITE BLOOD COUNT 11.4 10^3/ul (4.8-10.8)
[2017-10-12 07:47] LABS: BASOPHILS % 0.4 % (0.0-2.0); EOSINOPHILS # 0.3 10^3/ul (0.0-0.5); EOSINOPHILS % 2.4 % (0.0-7.0); HEMATOCRIT 31.3 % (42.0-52.0); HEMOGLOBIN 9.8 g/dl (14.0-18.0); LYMPHOCYTES # 1.6 10^3/ul (0.8-2.9); MEAN CORPUSCULAR HEMOGLOBIN 31.9 pg (29.0-33.0); MEAN CORPUSCULAR HGB CONC 31.3 g/dl (32.0-37.0); MEAN PLATELET VOLUME 11.7 fl (7.4-10.4); MONOCYTE # 0.9 10^3/ul (0.3-0.9); MONOCYTES % 7.6 % (0.0-11.0); NEUTROPHIL # 8.6 10^3/ul (1.6-7.5); NEUTROPHILS % 74.9 % (39.0-77.0); PLATELET COUNT 143 10^3/UL (140-415); RED BLOOD COUNT 3.07 10^6/ul (4.70-6.10); RED CELL DISTRIBUTION WIDTH 15.6 % (11.5-14.5)
[2017-10-12 07:59] LABS: ALANINE AMINOTRANSFERASE 259 IU/L (13-69); ALBUMIN/GLOBULIN RATIO 0.78; ALKALINE PHOSPHATASE 397 IU/L (42-121); ANION GAP 20 (8-16); ASPARTATE AMINO TRANSFERASE 123 IU/L (15-46); BILIRUBIN,INDIRECT 0.2 mg/dl (0-1.1); BILIRUBIN,TOTAL 0.2 mg/dl (0.2-1.3); BLOOD UREA NITROGEN 62 mg/dl (7-20); CALCIUM 8.5 mg/dl (8.4-10.2); CARBON DIOXIDE 27 mmol/L (21-31); CHLORIDE 99 mmol/L (97-110); CREATININE 5.25 mg/dl (0.61-1.24); GLUCOSE 82 mg/dl (70-220); MAGNESIUM 2.4 mg/dl (1.7-2.5); PHOSPHORUS 5.6 mg/dl (2.5-4.9); POTASSIUM 5.6 mmol/L (3.5-5.1); SODIUM 140 mmol/L (135-144); TOTAL PROTEIN 6.8 g/dl (6.1-8.1)
[2017-10-12] MEDS: INSULIN ASPART [NOVOLOG] 3 ML PEN SC ×4 (08:00→21:00)
[2017-10-12] MEDS: MAGNESIUM HYDROXIDE 30ML CUP PO (08:29)
[2017-10-12] MEDS: POLYETHYLENE GLYCOL 17 GM PACKET PO (08:29)
[2017-10-12] MEDS: DOCUSATE SODIUM 100 MG CAP PO ×2 (08:29→21:05)
[2017-10-12] MEDS: ASPIRIN (EC) 81 MG TAB PO (08:29)
[2017-10-12] MEDS: FAMOTIDINE 20 MG TAB PO (08:30)
[2017-10-12] MEDS: CILOSTAZOL 100 MG TAB PO ×2 (08:30→21:05)
[2017-10-12] MEDS: AMLODIPINE 5 MG TAB PO (08:30)
[2017-10-12] MEDS: GABAPENTIN 300 MG CAP PO ×2 (08:30→21:05)
[2017-10-12] MEDS: ZYVOX 600 MG TAB PO ×2 (08:30→21:05)
[2017-10-12] MEDS: LACTOBACILLUS RHAMNOSUS CAP PO ×2 (08:31→21:05)
[2017-10-12] MEDS: ISOSORBIDE DINITRATE 10 MG TAB PO ×3 (08:31→21:05)
[2017-10-12] MEDS: METOPROLOL 50 MG TAB PO ×2 (08:32→21:06)
[2017-10-12] MEDS: CLOPIDOGREL 75 MG TAB PO (08:32)
[2017-10-12] MEDS: HEPARIN 5,000 UNIT/0.5 ML VIAL SC ×2 (08:33→21:09)
[2017-10-12] MEDS: MEROPENEM 500MG/50 ML (PMX) 50 ML IVPB ×2 (08:45→21:04)
[2017-10-12] MEDS: HYDROmorphONE 0.5 MG/0.5 ML SYG IV ×2 (12:29→21:18)
[2017-10-12] MEDS: NA POLYST SULFON 15 GM/60 ML BTL PO (14:02)
[2017-10-13] MEDS: HYDROmorphONE 2 MG TAB PO (00:46)
[2017-10-13] MEDS: ACCU-CHEK XX (02:00)
[2017-10-13 07:38] LABS: ADD MAN DIFF? NO; HAAIG REFLEX REFLEX FILED
[2017-10-13 07:49] LABS: WHITE BLOOD COUNT 9.7 10^3/ul (4.8-10.8)
[2017-10-13 07:49] LABS: BASOPHIL # 0.1 10^3/ul (0.0-0.1); BASOPHILS % 0.5 % (0.0-2.0); EOSINOPHILS # 0.3 10^3/ul (0.0-0.5); EOSINOPHILS % 3.2 % (0.0-7.0); HEMATOCRIT 31.4 % (42.0-52.0); HEMOGLOBIN 9.7 g/dl (14.0-18.0); LYMPHOCYTES # 1.8 10^3/ul (0.8-2.9); LYMPHOCYTES % 18.5 % (15.0-51.0); MEAN CORPUSCULAR HEMOGLOBIN 32.1 pg (29.0-33.0); MEAN CORPUSCULAR HGB CONC 30.9 g/dl (32.0-37.0); MEAN PLATELET VOLUME 12.2 fl (7.4-10.4); MONOCYTE # 0.8 10^3/ul (0.3-0.9); MONOCYTES % 8.1 % (0.0-11.0); NEUTROPHIL # 6.7 10^3/ul (1.6-7.5); PLATELET COUNT 128 10^3/UL (140-415); RED BLOOD COUNT 3.02 10^6/ul (4.70-6.10); RED CELL DISTRIBUTION WIDTH 15.4 % (11.5-14.5)
[2017-10-13] MEDS: INSULIN ASPART [NOVOLOG] 3 ML PEN SC ×4 (08:00→21:00)
[2017-10-13 08:33] LABS: ALANINE AMINOTRANSFERASE 147 IU/L (13-69); ALBUMIN 3.1 g/dl (3.3-4.9); ALBUMIN/GLOBULIN RATIO 0.81; ALKALINE PHOSPHATASE 349 IU/L (42-121); ANION GAP 24 (8-16); ASPARTATE AMINO TRANSFERASE 52 IU/L (15-46); BILIRUBIN,INDIRECT 0.1 mg/dl (0-1.1); BILIRUBIN,TOTAL 0.1 mg/dl (0.2-1.3); BLOOD UREA NITROGEN 72 mg/dl (7-20); CALCIUM 8.3 mg/dl (8.4-10.2); CARBON DIOXIDE 26 mmol/L (21-31); CHLORIDE 99 mmol/L (97-110); CREATININE 6.38 mg/dl (0.61-1.24); GLUCOSE 83 mg/dl (70-220); POTASSIUM 5.5 mmol/L (3.5-5.1); SODIUM 143 mmol/L (135-144); TOTAL PROTEIN 6.9 g/dl (6.1-8.1)
[2017-10-13 08:44] LABS: HEPATITIS B SURFACE ANTIGEN NEGATIVE (NEGATIVE)
[2017-10-13] MEDS: MAGNESIUM HYDROXIDE 30ML CUP PO (08:46)
[2017-10-13] MEDS: POLYETHYLENE GLYCOL 17 GM PACKET PO (08:46)
[2017-10-13] MEDS: CILOSTAZOL 100 MG TAB PO ×2 (08:47→21:11)
[2017-10-13] MEDS: DOCUSATE SODIUM 100 MG CAP PO ×2 (08:47→21:10)
[2017-10-13] MEDS: CLOPIDOGREL 75 MG TAB PO (08:47)
[2017-10-13] MEDS: ZYVOX 600 MG TAB PO ×2 (08:47→21:09)
[2017-10-13] MEDS: ASPIRIN (EC) 81 MG TAB PO (08:48)
[2017-10-13] MEDS: FAMOTIDINE 20 MG TAB PO (08:48)
[2017-10-13] MEDS: GABAPENTIN 300 MG CAP PO ×2 (08:48→21:11)
[2017-10-13] MEDS: HEPARIN 5,000 UNIT/0.5 ML VIAL SC ×2 (08:49→21:20)
[2017-10-13] MEDS: ISOSORBIDE DINITRATE 10 MG TAB PO ×3 (08:55→21:10)
[2017-10-13] MEDS: AMLODIPINE 5 MG TAB PO (08:56)
[2017-10-13] MEDS: METOPROLOL 50 MG TAB PO ×2 (08:56→21:08)
[2017-10-13 09:02] LABS: HEPATITIS B CORE ANTIBODY NEGATIVE (NEGATIVE); HEPATITIS C VIRAL ANTIBODY NEGATIVE (NEGATIVE)
[2017-10-13] MEDS: HYDROmorphONE 0.5 MG/0.5 ML SYG IV ×2 (09:16→23:27)
[2017-10-13] MEDS: MEROPENEM 500MG/50 ML (PMX) 50 ML IVPB ×2 (09:17→21:12)
[2017-10-13] MEDS: LACTOBACILLUS RHAMNOSUS CAP PO ×2 (09:17→21:09)
[2017-10-13] MEDS ORDERED: ALBUMIN HUMAN 25% 100 ML IV (16:30)
[2017-10-14] MEDS: AMIKACIN 250 MG in SOD CHLORIDE 0.9% 100 ML IVPB (00:26)
[2017-10-14] MEDS: ACCU-CHEK XX (02:00)
[2017-10-14 07:30] LABS: ADD MAN DIFF? NO
[2017-10-14 07:36] LABS: WHITE BLOOD COUNT 8.7 10^3/ul (4.8-10.8)
[2017-10-14 07:36] LABS: BASOPHILS % 0.2 % (0.0-2.0); EOSINOPHILS # 0.2 10^3/ul (0.0-0.5); EOSINOPHILS % 1.9 % (0.0-7.0); HEMATOCRIT 30.5 % (42.0-52.0); HEMOGLOBIN 9.4 g/dl (14.0-18.0); LYMPHOCYTES # 1.3 10^3/ul (0.8-2.9); LYMPHOCYTES % 14.8 % (15.0-51.0); MEAN CORPUSCULAR HEMOGLOBIN 32.1 pg (29.0-33.0); MEAN CORPUSCULAR HGB CONC 30.8 g/dl (32.0-37.0); MEAN CORPUSCULAR VOLUME 104.1 fl (82.0-101.0); MEAN PLATELET VOLUME 12.3 fl (7.4-10.4); MONOCYTE # 0.7 10^3/ul (0.3-0.9); MONOCYTES % 8.4 % (0.0-11.0); NEUTROPHIL # 6.4 10^3/ul (1.6-7.5); NEUTROPHILS % 73.9 % (39.0-77.0); PLATELET COUNT 120 10^3/UL (140-415); RED BLOOD COUNT 2.93 10^6/ul (4.70-6.10); RED CELL DISTRIBUTION WIDTH 15.3 % (11.5-14.5)
[2017-10-14 07:58] LABS: ANION GAP 17 (8-16); BLOOD UREA NITROGEN 35 mg/dl (7-20); CALCIUM 8.4 mg/dl (8.4-10.2); CARBON DIOXIDE 32 mmol/L (21-31); CHLORIDE 95 mmol/L (97-110); CREATININE 3.63 mg/dl (0.61-1.24); GLUCOSE 102 mg/dl (70-220); MAGNESIUM 2.3 mg/dl (1.7-2.5); POTASSIUM 4.7 mmol/L (3.5-5.1); SODIUM 139 mmol/L (135-144)
[2017-10-14] MEDS: INSULIN ASPART [NOVOLOG] 3 ML PEN SC ×4 (08:00→21:00)
[2017-10-14] MEDS: HEPARIN 5,000 UNIT/0.5 ML VIAL SC ×2 (09:00→21:48)
[2017-10-14] MEDS: POLYETHYLENE GLYCOL 17 GM PACKET PO (09:00)
[2017-10-14 09:53] LABS: ALANINE AMINOTRANSFERASE 114 IU/L (13-69); ALBUMIN 3.3 g/dl (3.3-4.9); ALKALINE PHOSPHATASE 353 IU/L (42-121); ASPARTATE AMINO TRANSFERASE 40 IU/L (15-46); BILIRUBIN,INDIRECT 0.3 mg/dl (0-1.1); BILIRUBIN,TOTAL 0.3 mg/dl (0.2-1.3); TOTAL PROTEIN 6.9 g/dl (6.1-8.1)
[2017-10-14] MEDS: DOCUSATE SODIUM 100 MG CAP PO ×2 (09:54→21:37)
[2017-10-14] MEDS: GABAPENTIN 300 MG CAP PO ×2 (09:54→21:36)
[2017-10-14] MEDS: CLOPIDOGREL 75 MG TAB PO (09:55)
[2017-10-14] MEDS: ASPIRIN (EC) 81 MG TAB PO (09:55)
[2017-10-14] MEDS: ZYVOX 600 MG TAB PO ×2 (09:55→21:37)
[2017-10-14] MEDS: LACTOBACILLUS RHAMNOSUS CAP PO ×2 (09:55→21:36)
[2017-10-14] MEDS: METOPROLOL 50 MG TAB PO ×2 (09:56→21:38)
[2017-10-14] MEDS: MAGNESIUM HYDROXIDE 30ML CUP PO (09:56)
[2017-10-14] MEDS: ISOSORBIDE DINITRATE 10 MG TAB PO ×3 (09:57→21:37)
[2017-10-14] MEDS: FAMOTIDINE 20 MG TAB PO (09:57)
[2017-10-14] MEDS: CILOSTAZOL 100 MG TAB PO ×2 (09:58→21:37)
[2017-10-14] MEDS: AMLODIPINE 5 MG TAB PO (09:58)
[2017-10-14] MEDS: MEROPENEM 500MG/50 ML (PMX) 50 ML IVPB ×2 (10:10→21:40)
[2017-10-14] MEDS: HYDROmorphONE 0.5 MG/0.5 ML SYG IV ×2 (10:37→23:47)
[2017-10-14] MEDS: LIDOCAINE 1% (MDV) 10 ML INJ (17:56)
[2017-10-15] MEDS: ACCU-CHEK XX (02:00)
[2017-10-15 06:55] LABS: ADD MAN DIFF? NO
[2017-10-15 07:00] LABS: WHITE BLOOD COUNT 7.8 10^3/ul (4.8-10.8)
[2017-10-15 07:00] LABS: BASOPHILS % 0.4 % (0.0-2.0); EOSINOPHILS # 0.1 10^3/ul (0.0-0.5); EOSINOPHILS % 1.7 % (0.0-7.0); HEMATOCRIT 33.7 % (42.0-52.0); HEMOGLOBIN 10.4 g/dl (14.0-18.0); LYMPHOCYTES # 1.3 10^3/ul (0.8-2.9); LYMPHOCYTES % 17.2 % (15.0-51.0); MEAN CORPUSCULAR HEMOGLOBIN 32.2 pg (29.0-33.0); MEAN CORPUSCULAR HGB CONC 30.9 g/dl (32.0-37.0); MEAN CORPUSCULAR VOLUME 104.3 fl (82.0-101.0); MEAN PLATELET VOLUME 12.7 fl (7.4-10.4); MONOCYTE # 0.5 10^3/ul (0.3-0.9); MONOCYTES % 6.3 % (0.0-11.0); NEUTROPHIL # 5.7 10^3/ul (1.6-7.5); NEUTROPHILS % 73.4 % (39.0-77.0); PLATELET COUNT 125 10^3/UL (140-415); RED BLOOD COUNT 3.23 10^6/ul (4.70-6.10); RED CELL DISTRIBUTION WIDTH 14.9 % (11.5-14.5)
[2017-10-15 07:25] LABS: ANION GAP 20 (8-16); BLOOD UREA NITROGEN 51 mg/dl (7-20); CALCIUM 8.4 mg/dl (8.4-10.2); CARBON DIOXIDE 28 mmol/L (21-31); CHLORIDE 96 mmol/L (97-110); CREATININE 4.81 mg/dl (0.61-1.24); GLUCOSE 76 mg/dl (70-220); POTASSIUM 5.4 mmol/L (3.5-5.1); SODIUM 139 mmol/L (135-144)
[2017-10-15 07:26] LABS: ALANINE AMINOTRANSFERASE 83 IU/L (13-69); ALBUMIN 2.8 g/dl (3.3-4.9); ALKALINE PHOSPHATASE 298 IU/L (42-121); ASPARTATE AMINO TRANSFERASE 29 IU/L (15-46); BILIRUBIN,INDIRECT 0.2 mg/dl (0-1.1); BILIRUBIN,TOTAL 0.2 mg/dl (0.2-1.3); TOTAL PROTEIN 6.1 g/dl (6.1-8.1)
[2017-10-15] MEDS: INSULIN ASPART [NOVOLOG] 3 ML PEN SC ×5 (08:00→21:00)
[2017-10-15] MEDS: HEPARIN 5,000 UNIT/0.5 ML VIAL SC ×2 (09:00→21:32)
[2017-10-15] MEDS: POLYETHYLENE GLYCOL 17 GM PACKET PO (09:00)
[2017-10-15] MEDS: ZYVOX 600 MG TAB PO ×2 (09:00→21:29)
[2017-10-15] MEDS: MAGNESIUM HYDROXIDE 30ML CUP PO (09:00)
[2017-10-15] MEDS: METOPROLOL 50 MG TAB PO (09:00)
[2017-10-15] MEDS: DOCUSATE SODIUM 100 MG CAP PO ×2 (09:00→21:28)
[2017-10-15 10:49] LABS: FLD MN% 79.1 %; FLD PMN% 20.9 %; FLD RBC 0 /uL; FLD WBC 72 /cmm
[2017-10-15 11:47] LABS: FLUID GLUCOSE 107 mg/dl; FLUID LD 197 U/L; FLUID TYPE THORACENTESIS FLUID
[2017-10-15 11:48] LABS: FLUID TYPE THORACENTESIS FLUID
[2017-10-15 12:16] LABS: FLD CLARITY CLEAR; FLD COLOR YELLOW
[2017-10-15 12:16] LABS: FLD TYPE PLEURAL
[2017-10-15] MEDS: AMLODIPINE 5 MG TAB PO ×2 (13:21→21:29)
[2017-10-15] MEDS: FAMOTIDINE 20 MG TAB PO (13:22)
[2017-10-15] MEDS: CILOSTAZOL 100 MG TAB PO ×2 (13:22→21:30)
[2017-10-15] MEDS: CLOPIDOGREL 75 MG TAB PO (13:22)
[2017-10-15] MEDS: LACTOBACILLUS RHAMNOSUS CAP PO ×2 (13:25→21:28)
[2017-10-15] MEDS: ASPIRIN (EC) 81 MG TAB PO (13:27)
[2017-10-15] MEDS: MEROPENEM 500MG/50 ML (PMX) 50 ML IVPB ×2 (13:27→21:27)
[2017-10-15] MEDS: ISOSORBIDE DINITRATE 10 MG TAB PO (13:28)
[2017-10-15] MEDS: GABAPENTIN 300 MG CAP PO ×2 (15:20→21:28)
[2017-10-15 16:21] LABS: CREATINE KINASE 69 IU/L (23-200)
[2017-10-15 16:34] LABS: CK INDEX 3.9
[2017-10-15 16:38] LABS: TROPONIN-I 0.269 ng/ml (0.00-0.12)
[2017-10-15] MEDS: ISOSORBIDE DINITRATE 20 MG TAB PO (21:28)
[2017-10-15] MEDS: METOPROLOL 25 MG TAB PO (21:31)
[2017-10-16] MEDS: ACCU-CHEK XX (02:00)
[2017-10-16 07:51] LABS: ADD MAN DIFF? NO
[2017-10-16 07:57] LABS: BASOPHILS % 0.3 % (0.0-2.0); EOSINOPHILS # 0.2 10^3/ul (0.0-0.5); EOSINOPHILS % 2.3 % (0.0-7.0); HEMATOCRIT 29.3 % (42.0-52.0); HEMOGLOBIN 9.1 g/dl (14.0-18.0); LYMPHOCYTES # 1.5 10^3/ul (0.8-2.9); LYMPHOCYTES % 19.7 % (15.0-51.0); MEAN CORPUSCULAR HEMOGLOBIN 31.8 pg (29.0-33.0); MEAN CORPUSCULAR HGB CONC 31.1 g/dl (32.0-37.0); MEAN CORPUSCULAR VOLUME 102.4 fl (82.0-101.0); MONOCYTE # 0.7 10^3/ul (0.3-0.9); MONOCYTES % 8.8 % (0.0-11.0); NEUTROPHIL # 5.1 10^3/ul (1.6-7.5); NEUTROPHILS % 68.4 % (39.0-77.0); PLATELET COUNT 121 10^3/UL (140-415); RED BLOOD COUNT 2.86 10^6/ul (4.70-6.10); RED CELL DISTRIBUTION WIDTH 14.9 % (11.5-14.5)
[2017-10-16 07:57] LABS: WHITE BLOOD COUNT 7.5 10^3/ul (4.8-10.8)
[2017-10-16] MEDS: INSULIN ASPART [NOVOLOG] 3 ML PEN SC ×4 (08:00→20:54)
[2017-10-16 08:20] LABS: ANION GAP 16 (8-16); BLOOD UREA NITROGEN 36 mg/dl (7-20); CALCIUM 8.1 mg/dl (8.4-10.2); CARBON DIOXIDE 29 mmol/L (21-31); CHLORIDE 100 mmol/L (97-110); CREATINE KINASE 37 IU/L (23-200); CREATININE 3.42 mg/dl (0.61-1.24); GLUCOSE 80 mg/dl (70-220); POTASSIUM 4.5 mmol/L (3.5-5.1); SODIUM 140 mmol/L (135-144)
[2017-10-16 08:28] LABS: CK INDEX 3.1
[2017-10-16 08:31] LABS: CK-MB 1.14 ng/ml (0.0-2.4); TROPONIN-I 0.246 ng/ml (0.00-0.12)
[2017-10-16] MEDS: MAGNESIUM HYDROXIDE 30ML CUP PO (08:35)
[2017-10-16] MEDS: CLOPIDOGREL 75 MG TAB PO (08:35)
[2017-10-16] MEDS: CILOSTAZOL 100 MG TAB PO ×2 (08:35→20:47)
[2017-10-16] MEDS: POLYETHYLENE GLYCOL 17 GM PACKET PO (08:35)
[2017-10-16] MEDS: METOPROLOL 25 MG TAB PO ×2 (08:36→20:47)
[2017-10-16] MEDS: ISOSORBIDE DINITRATE 20 MG TAB PO ×3 (08:36→20:40)
[2017-10-16] MEDS: FAMOTIDINE 20 MG TAB PO (08:36)
[2017-10-16] MEDS: MEROPENEM 500MG/50 ML (PMX) 50 ML IVPB ×2 (08:37→20:47)
[2017-10-16] MEDS: ZYVOX 600 MG TAB PO ×2 (08:37→20:40)
[2017-10-16] MEDS: LACTOBACILLUS RHAMNOSUS CAP PO ×2 (08:37→20:41)
[2017-10-16] MEDS: DOCUSATE SODIUM 100 MG CAP PO ×2 (08:37→20:40)
[2017-10-16] MEDS: AMLODIPINE 5 MG TAB PO ×2 (08:37→20:40)
[2017-10-16] MEDS: GABAPENTIN 300 MG CAP PO ×2 (08:37→20:40)
[2017-10-16] MEDS: ASPIRIN (EC) 81 MG TAB PO (08:37)
[2017-10-16] MEDS: HEPARIN 5,000 UNIT/0.5 ML VIAL SC ×2 (08:44→20:42)
[2017-10-16] MEDS: HYDROmorphONE 0.5 MG/0.5 ML SYG IV ×3 (11:01→21:52)
[2017-10-17] MEDS: ACCU-CHEK XX (02:00)
[2017-10-17] MEDS: INSULIN ASPART [NOVOLOG] 3 ML PEN SC ×4 (08:00→21:00)
[2017-10-17 08:10] LABS: ANION GAP 20 (8-16); BLOOD UREA NITROGEN 50 mg/dl (7-20); CALCIUM 8.4 mg/dl (8.4-10.2); CARBON DIOXIDE 27 mmol/L (21-31); CHLORIDE 98 mmol/L (97-110); CREATININE 5.02 mg/dl (0.61-1.24); GLUCOSE 115 mg/dl (70-220); POTASSIUM 4.5 mmol/L (3.5-5.1); SODIUM 140 mmol/L (135-144)
[2017-10-17] MEDS: DOCUSATE SODIUM 100 MG CAP PO ×2 (09:00→20:58)
[2017-10-17] MEDS: ISOSORBIDE DINITRATE 20 MG TAB PO ×3 (09:00→21:00)
[2017-10-17] MEDS: MAGNESIUM HYDROXIDE 30ML CUP PO (09:00)
[2017-10-17] MEDS: POLYETHYLENE GLYCOL 17 GM PACKET PO (09:00)
[2017-10-17] MEDS: AMLODIPINE 5 MG TAB PO ×3 (09:00→20:59)
[2017-10-17] MEDS: METOPROLOL 25 MG TAB PO ×3 (09:00→20:59)
[2017-10-17] MEDS: ZYVOX 600 MG TAB PO ×2 (09:25→20:58)
[2017-10-17] MEDS: ASPIRIN (EC) 81 MG TAB PO (09:25)
[2017-10-17] MEDS: CLOPIDOGREL 75 MG TAB PO (09:26)
[2017-10-17] MEDS: GABAPENTIN 300 MG CAP PO ×2 (09:26→20:58)
[2017-10-17] MEDS: FAMOTIDINE 20 MG TAB PO (09:27)
[2017-10-17] MEDS: CILOSTAZOL 100 MG TAB PO ×2 (09:27→20:58)
[2017-10-17] MEDS: LACTOBACILLUS RHAMNOSUS CAP PO ×2 (09:28→20:58)
[2017-10-17] MEDS: MEROPENEM 500MG/50 ML (PMX) 50 ML IVPB ×2 (09:29→20:58)
[2017-10-17] MEDS: HEPARIN 5,000 UNIT/0.5 ML VIAL SC ×2 (09:29→21:03)
[2017-10-17] MEDS: morphine 2 MG INJ IV ×2 (12:24→18:10)
[2017-10-17] MEDS: HYDROmorphONE 0.5 MG/0.5 ML SYG IV (21:16)
[2017-10-18] MEDS: ACCU-CHEK XX (02:00)
[2017-10-18] MEDS: morphine 2 MG INJ IV ×4 (02:59→17:37)
[2017-10-18] MEDS: INSULIN ASPART [NOVOLOG] 3 ML PEN SC ×4 (08:00→20:52)
[2017-10-18] MEDS: MAGNESIUM HYDROXIDE 30ML CUP PO (08:51)
[2017-10-18] MEDS: MEROPENEM 500MG/50 ML (PMX) 50 ML IVPB ×2 (08:51→20:53)
[2017-10-18] MEDS: POLYETHYLENE GLYCOL 17 GM PACKET PO (08:51)
[2017-10-18] MEDS: LACTOBACILLUS RHAMNOSUS CAP PO ×2 (08:52→20:29)
[2017-10-18] MEDS: FAMOTIDINE 20 MG TAB PO (08:52)
[2017-10-18] MEDS: ISOSORBIDE DINITRATE 20 MG TAB PO ×3 (08:53→20:30)
[2017-10-18] MEDS: ASPIRIN (EC) 81 MG TAB PO (08:53)
[2017-10-18] MEDS: ZYVOX 600 MG TAB PO ×2 (08:53→20:31)
[2017-10-18] MEDS: AMLODIPINE 5 MG TAB PO ×2 (08:53→20:31)
[2017-10-18] MEDS: DOCUSATE SODIUM 100 MG CAP PO ×2 (08:54→20:29)
[2017-10-18] MEDS: CLOPIDOGREL 75 MG TAB PO (08:54)
[2017-10-18] MEDS: METOPROLOL 25 MG TAB PO ×2 (08:54→20:30)
[2017-10-18] MEDS: HEPARIN 5,000 UNIT/0.5 ML VIAL SC ×2 (08:55→20:33)
[2017-10-18] MEDS: GABAPENTIN 300 MG CAP PO ×2 (09:00→20:30)
[2017-10-18] MEDS: CILOSTAZOL 100 MG TAB PO ×2 (09:01→20:31)
[2017-10-18] MEDS: HYDROmorphONE 2 MG TAB PO (11:36)
[2017-10-18] MEDS: HYDROmorphONE 0.5 MG/0.5 ML SYG IV (20:23)
[2017-10-19] MEDS: ACCU-CHEK XX (02:00)
[2017-10-19] MEDS: morphine 2 MG INJ IV ×3 (03:29→18:21)
[2017-10-19] MEDS: INSULIN ASPART [NOVOLOG] 3 ML PEN SC ×4 (08:00→20:43)
[2017-10-19] MEDS: MAGNESIUM HYDROXIDE 30ML CUP PO (08:48)
[2017-10-19] MEDS: ZYVOX 600 MG TAB PO ×2 (08:48→20:41)
[2017-10-19] MEDS: MEROPENEM 500MG/50 ML (PMX) 50 ML IVPB ×2 (08:48→20:40)
[2017-10-19] MEDS: POLYETHYLENE GLYCOL 17 GM PACKET PO (08:48)
[2017-10-19] MEDS: LACTOBACILLUS RHAMNOSUS CAP PO ×2 (08:49→20:41)
[2017-10-19] MEDS: FAMOTIDINE 20 MG TAB PO (08:49)
[2017-10-19] MEDS: DOCUSATE SODIUM 100 MG CAP PO ×2 (08:49→20:41)
[2017-10-19] MEDS: CILOSTAZOL 100 MG TAB PO ×2 (08:49→20:41)
[2017-10-19] MEDS: ISOSORBIDE DINITRATE 20 MG TAB PO ×3 (08:50→20:42)
[2017-10-19] MEDS: CLOPIDOGREL 75 MG TAB PO (08:51)
[2017-10-19] MEDS: ASPIRIN (EC) 81 MG TAB PO (08:51)
[2017-10-19] MEDS: AMLODIPINE 5 MG TAB PO ×2 (08:51→20:43)
[2017-10-19] MEDS: GABAPENTIN 300 MG CAP PO ×2 (08:52→20:59)
[2017-10-19] MEDS: METOPROLOL 25 MG TAB PO ×2 (08:52→20:43)
[2017-10-19] MEDS: HEPARIN 5,000 UNIT/0.5 ML VIAL SC ×2 (08:54→20:59)
[2017-10-19] MEDS: OXYCODONE/ACETAMINOPHEN (5/325) TAB PO (13:40)
[2017-10-19] MEDS: HYDROmorphONE 0.5 MG/0.5 ML SYG IV (20:44)
[2017-10-20] MEDS: ACCU-CHEK XX (02:00)
[2017-10-20] MEDS: morphine 2 MG INJ IV (02:29)
[2017-10-20] MEDS: OXYCODONE/ACETAMINOPHEN (5/325) TAB PO ×3 (05:05→17:27)
[2017-10-20] MEDS: INSULIN ASPART [NOVOLOG] 3 ML PEN SC ×3 (08:00→17:32)
[2017-10-20] MEDS: CLOPIDOGREL 75 MG TAB PO (08:56)
[2017-10-20] MEDS: ASPIRIN (EC) 81 MG TAB PO (08:56)
[2017-10-20] MEDS: GABAPENTIN 300 MG CAP PO (08:56)
[2017-10-20] MEDS: DOCUSATE SODIUM 100 MG CAP PO (08:56)
[2017-10-20] MEDS: FAMOTIDINE 20 MG TAB PO (08:56)
[2017-10-20] MEDS: MAGNESIUM HYDROXIDE 30ML CUP PO (08:57)
[2017-10-20] MEDS: HEPARIN 5,000 UNIT/0.5 ML VIAL SC (08:57)
[2017-10-20] MEDS: ZYVOX 600 MG TAB PO (08:57)
[2017-10-20] MEDS: POLYETHYLENE GLYCOL 17 GM PACKET PO (08:57)
[2017-10-20] MEDS: METOPROLOL 25 MG TAB PO (08:58)
[2017-10-20] MEDS: ISOSORBIDE DINITRATE 20 MG TAB PO ×2 (08:58→12:01)
[2017-10-20] MEDS: AMLODIPINE 5 MG TAB PO (08:59)
[2017-10-20] MEDS: CILOSTAZOL 100 MG TAB PO (09:00)
[2017-10-20] MEDS: LACTOBACILLUS RHAMNOSUS CAP PO (09:04)
[2017-10-20] MEDS: MEROPENEM 500MG/50 ML (PMX) 50 ML IVPB (09:05)
[2017-10-20] MEDS: AMPICILLIN 1 GM/NS (PMX) 50 ML IVPB ×2 (13:30→17:02)
[2017-10-20] MEDS: HYDROmorphONE 2 MG TAB PO (13:34)
== END 2017-10-20 19:00 | disposition home health service (06) | DRG 246 ==
LOC: MS4 10-07 13:20 → ICU 10-10 13:15 → FTE 21:50 → TEL 10-07 13:25 → MS4 10-10 22:31 → MS2 09-30 03:21
PROC: 027135Z Dilation of Coronary Artery, Two Arteries with Two Drug-eluting Intraluminal Devices, Percutaneous Approach (ICD-10-PCS; principal; 2017-10-10 09:00)
PROC: 4A023N7 Measurement of Cardiac Sampling and Pressure, Left Heart, Percutaneous Approach (ICD-10-PCS; 2017-10-10 09:00)
PROC: B2011ZZ Plain Radiography of Multiple Coronary Arteries using Low Osmolar Contrast (ICD-10-PCS; 2017-10-10 09:00)
PROC: B2051ZZ Plain Radiography of Left Heart using Low Osmolar Contrast (ICD-10-PCS; 2017-10-10 09:00)
PROC: 30233N1 Transfusion of Nonautologous Red Blood Cells into Peripheral Vein, Percutaneous Approach (ICD-10-PCS; 2017-10-10 11:08)
PROC: 5A1D70Z Performance of Urinary Filtration, Intermittent, Less than 6 Hours Per Day (ICD-10-PCS; 2017-10-10 11:08)
PROC: 0W993ZZ Drainage of Right Pleural Cavity, Percutaneous Approach (ICD-10-PCS; 2017-10-10 11:08)
DX: I70.261 Atherosclerosis of native arteries of extremities with gangrene, right leg (principal); I21.A1 Myocardial infarction type 2; J18.9 Pneumonia, unspecified organism; N18.6 End stage renal disease; A41.9 Sepsis, unspecified organism; J90 Pleural effusion, not elsewhere classified; I12.0 Hypertensive chronic kidney disease with stage 5 chronic kidney disease or end stage renal disease; M86.8X7 Other osteomyelitis, ankle and foot; I25.10 Atherosclerotic heart disease of native coronary artery without angina pectoris; Z89.612 Acquired absence of left leg above knee; D64.9 Anemia, unspecified; E78.5 Hyperlipidemia, unspecified; Z87.891 Personal history of nicotine dependence; D63.8 Anemia in other chronic diseases classified elsewhere; E87.5 Hyperkalemia; E11.22 Type 2 diabetes mellitus with diabetic chronic kidney disease; Z99.2 Dependence on renal dialysis; B96.20 Unspecified Escherichia coli [E. coli] as the cause of diseases classified elsewhere; B95.2 Enterococcus as the cause of diseases classified elsewhere; Z16.12 Extended spectrum beta lactamase (ESBL) resistance; L97.519 Non-pressure chronic ulcer of other part of right foot with unspecified severity
CPT/HCPCS: 32555; 36430; 71045; 76705; 78452; 80048; 80053; 80061; 80076; 82042; 82550; 82553; 82607; 82746; 82945; 82962; 83036; 83615; 83690; 83735; 84100; 84443; 84484; 85025; 85610; 85730; 86704; 86709; 86803; 86850; 86900; 86901; 86920; 87040; 87070; 87102; 87116; 87340; 89051; 90935; 93005; 93017; 93306; 93458; 93971; 94664

== ENCOUNTER 2017-10-23 15:12 | Outpatient (CLI) | payer OTHER | END 2017-10-23 15:49 | disposition home or self-care (01) | LOC: DCC 15:12 | DX: M79.671 Pain in right foot (principal); I73.9 Peripheral vascular disease, unspecified; I12.0 Hypertensive chronic kidney disease with stage 5 chronic kidney disease or end stage renal disease; N18.6 End stage renal disease; Z99.2 Dependence on renal dialysis; D64.9 Anemia, unspecified; G62.9 Polyneuropathy, unspecified; I25.10 Atherosclerotic heart disease of native coronary artery without angina pectoris; Z79.82 Long term (current) use of aspirin | CPT/HCPCS: G0463 ==

== ENCOUNTER 2017-10-28 13:51 | Inpatient (IN) | payer OTHER ==
[2017-10-28 16:12] LABS: WHITE BLOOD COUNT 12.4 10^3/ul (4.8-10.8)
[2017-10-28 16:12] LABS: ABNORMAL IP MESSAGE 1; HEMATOCRIT 21.6 % (42.0-52.0); MEAN CORPUSCULAR HEMOGLOBIN 32.1 pg (29.0-33.0); MEAN CORPUSCULAR VOLUME 103.3 fl (82.0-101.0); MEAN PLATELET VOLUME 11.7 fl (7.4-10.4); PLATELET COUNT 275 10^3/UL (140-415); POSITIVE DIFF @See below; RED BLOOD COUNT 2.09 10^6/ul (4.70-6.10)
[2017-10-28 16:20] LABS: ADD MAN DIFF? YES; HEMOGLOBIN 6.7 g/dl (14.0-18.0)
[2017-10-28 16:44] LABS: ANION GAP 17 (8-16); BLOOD UREA NITROGEN 33 mg/dl (7-20); CALCIUM 8.5 mg/dl (8.4-10.2); CARBON DIOXIDE 28 mmol/L (21-31); CHLORIDE 96 mmol/L (97-110); CREATININE 4.43 mg/dl (0.61-1.24); GLUCOSE 126 mg/dl (70-220); POTASSIUM 3.1 mmol/L (3.5-5.1); SODIUM 138 mmol/L (135-144)
[2017-10-28 17:08] LABS: TROPONIN-I 0.233 ng/ml (0.00-0.12)
[2017-10-28 17:14] LABS: B-TYPE NATRIURETIC PEPTIDE 98600 PG/ML (0-125)
[2017-10-28] MEDS ORDERED: ONDANSETRON 4 MG INJ IV ×2 (17:30→18:00)
[2017-10-28] MEDS ORDERED: ACETAMINOPHEN 325 MG TAB PO (17:30)
[2017-10-28 17:55] LABS: IMMEDIATE SPIN CROSSMATCH 1 4
[2017-10-28] MEDS ORDERED: NACL 0.9% 3 ML SYG IV (18:00)
[2017-10-28] MEDS ORDERED: LORAZEPAM 2 MG INJ IV (18:00)
[2017-10-28] MEDS ORDERED: AMIKACIN IV PER PHARMACY XX (19:30)
[2017-10-28] MEDS ORDERED: DEXTROSE 50% 50 ML SYRINGE IV ×2 (19:30)
[2017-10-28] MEDS ORDERED: GLUCAGON 1 MG INJ IM (19:30)
[2017-10-28] MEDS ORDERED: GLUCOSE GEL 15 GRAM TUBE PO ×2 (19:30)
[2017-10-28] MEDS ORDERED: GLUCOSE GEL 15 GRAM TUBE BUCCAL (19:30)
[2017-10-28] MEDS ORDERED: PENDING SANTYL ORDER FOR WOUND CARE XX (22:30)
[2017-10-28 23:08] LABS: CREATINE KINASE 45 IU/L (23-200)
[2017-10-28] MEDS: AMPICILLIN 1 GM/NS (PMX) 50 ML IVPB (23:09)
[2017-10-28] MEDS: SALINE 0.65% 45 ML NAS SPRAY NASAL (23:12)
[2017-10-28] MEDS: GABAPENTIN 300 MG CAP PO (23:13)
[2017-10-28] MEDS: CILOSTAZOL 100 MG TAB PO (23:13)
[2017-10-28] MEDS: PENTOXIFYLLINE (SR) 400 MG TAB PO (23:13)
[2017-10-28] MEDS: ISOSORBIDE DINITRATE 10 MG TAB PO (23:14)
[2017-10-28] MEDS: METOPROLOL 50 MG TAB PO (23:14)
[2017-10-28] MEDS: FUROSEMIDE 40 MG INJ IV (23:14)
[2017-10-28] MEDS: HEPARIN 5,000 UNIT/0.5 ML VIAL SC (23:17)
[2017-10-28 23:18] LABS: CK INDEX 2.6
[2017-10-28 23:20] LABS: CK-MB 1.17 ng/ml (0.0-2.4); TROPONIN-I 0.272 ng/ml (0.00-0.12)
[2017-10-28] MEDS: INSULIN ASPART [NOVOLOG] 3 ML PEN SC (23:25)
[2017-10-29] MEDS: AMIKACIN 500 MG in SOD CHLORIDE 0.9% 100 ML IVPB (02:30)
[2017-10-29 04:22] LABS: ADD MAN DIFF? NO
[2017-10-29 04:23] LABS: BASOPHILS % 0.2 % (0.0-2.0); EOSINOPHILS # 0.1 10^3/ul (0.0-0.5); EOSINOPHILS % 0.6 % (0.0-7.0); HEMATOCRIT 24.4 % (42.0-52.0); HEMOGLOBIN 7.7 g/dl (14.0-18.0); LYMPHOCYTES % 8.2 % (15.0-51.0); MEAN CORPUSCULAR HEMOGLOBIN 31.8 pg (29.0-33.0); MEAN CORPUSCULAR HGB CONC 31.6 g/dl (32.0-37.0); MEAN CORPUSCULAR VOLUME 100.8 fl (82.0-101.0); MEAN PLATELET VOLUME 11.7 fl (7.4-10.4); MONOCYTE # 1.3 10^3/ul (0.3-0.9); MONOCYTES % 10.3 % (0.0-11.0); NEUTROPHIL # 9.7 10^3/ul (1.6-7.5); NEUTROPHILS % 79.8 % (39.0-77.0); PLATELET COUNT 272 10^3/UL (140-415); RED BLOOD COUNT 2.42 10^6/ul (4.70-6.10); RED CELL DISTRIBUTION WIDTH 16.7 % (11.5-14.5)
[2017-10-29 04:23] LABS: WHITE BLOOD COUNT 12.1 10^3/ul (4.8-10.8)
[2017-10-29 04:40] LABS: CREATINE KINASE 40 IU/L (23-200)
[2017-10-29 04:42] LABS: ALANINE AMINOTRANSFERASE 20 IU/L (13-69); ALBUMIN/GLOBULIN RATIO 0.85; ALKALINE PHOSPHATASE 194 IU/L (42-121); ANION GAP 18 (8-16); ASPARTATE AMINO TRANSFERASE 15 IU/L (15-46); BILIRUBIN,INDIRECT 0.1 mg/dl (0-1.1); BILIRUBIN,TOTAL 0.1 mg/dl (0.2-1.3); BLOOD UREA NITROGEN 38 mg/dl (7-20); CALCIUM 8.2 mg/dl (8.4-10.2); CARBON DIOXIDE 25 mmol/L (21-31); CHLORIDE 99 mmol/L (97-110); CREATININE 4.85 mg/dl (0.61-1.24); GLUCOSE 99 mg/dl (70-220); MAGNESIUM 2.4 mg/dl (1.7-2.5); POTASSIUM 3.3 mmol/L (3.5-5.1); SODIUM 139 mmol/L (135-144); TOTAL PROTEIN 6.5 g/dl (6.1-8.1)
[2017-10-29 04:49] LABS: CK INDEX 2.5
[2017-10-29 04:51] LABS: CK-MB 1.01 ng/ml (0.0-2.4)
[2017-10-29 04:55] LABS: TROPONIN-I 0.271 ng/ml (0.00-0.12)
[2017-10-29] MEDS: PANTOPRAZOLE (EC) 40 MG TAB PO (06:15)
[2017-10-29] MEDS: FUROSEMIDE 40 MG INJ IV ×2 (06:15→18:00)
[2017-10-29] MEDS: INSULIN ASPART [NOVOLOG] 3 ML PEN SC ×4 (08:00→20:47)
[2017-10-29] MEDS: ISOSORBIDE DINITRATE 10 MG TAB PO ×3 (09:00→22:29)
[2017-10-29] MEDS: AMLODIPINE 5 MG TAB PO (09:00)
[2017-10-29] MEDS: GABAPENTIN 300 MG CAP PO ×2 (09:00→22:27)
[2017-10-29] MEDS: METOPROLOL 50 MG TAB PO ×2 (09:00→22:29)
[2017-10-29] MEDS: LORATADINE 10 MG TAB PO (09:41)
[2017-10-29] MEDS: CILOSTAZOL 100 MG TAB PO ×2 (09:42→22:27)
[2017-10-29] MEDS: ASPIRIN (EC) 81 MG TAB PO (09:42)
[2017-10-29] MEDS: DOCUSATE SODIUM 250 MG CAP PO (09:43)
[2017-10-29] MEDS: OXYCODONE/ACETAMINOPHEN (5/325) TAB PO ×2 (09:43→22:27)
[2017-10-29] MEDS: MULTIVIT/CA CARB/B CMPLX/FA TAB PO (09:43)
[2017-10-29] MEDS: PENTOXIFYLLINE (SR) 400 MG TAB PO ×2 (09:43→12:49)
[2017-10-29] MEDS: CLOPIDOGREL 75 MG TAB PO (09:43)
[2017-10-29] MEDS: POLYETHYLENE GLYCOL 17 GM PACKET PO (09:44)
[2017-10-29] MEDS: SALINE 0.65% 45 ML NAS SPRAY NASAL ×2 (09:44→21:00)
[2017-10-29] MEDS: HEPARIN 5,000 UNIT/0.5 ML VIAL SC ×2 (09:45→22:32)
[2017-10-29] MEDS: AMPICILLIN 1 GM/NS (PMX) 50 ML IVPB ×2 (09:46→22:26)
[2017-10-29 19:08] LABS: HEPATITIS B SURFACE ANTIGEN NEGATIVE (NEGATIVE)
[2017-10-29] MEDS: LIDOCAINE 1% (MDV) 10 ML INJ INJ (19:10)
[2017-10-29] MEDS: SOD CHLORIDE 0.9% 250 ML IV (19:51)
[2017-10-30] MEDS: AMIKACIN 250 MG in SOD CHLORIDE 0.9% 100 ML IVPB
[2017-10-30] MEDS: EPOETIN 3000 UNITS/1 ML INJ (ESRD) SC (00:01)
[2017-10-30] MEDS: ACETAMINOPHEN 325 MG TAB PO (00:10)
[2017-10-30] MEDS: OXYCODONE/ACETAMINOPHEN (5/325) TAB PO ×2 (04:50→10:06)
[2017-10-30] MEDS: PANTOPRAZOLE (EC) 40 MG TAB PO (04:51)
[2017-10-30] MEDS: FUROSEMIDE 40 MG INJ IV (04:51)
[2017-10-30] MEDS: POVIDONE IODINE 10% 28.4 GM OINT TOP (05:30)
[2017-10-30 06:48] LABS: ADD MAN DIFF? NO
[2017-10-30 06:55] LABS: BASOPHILS % 0.4 % (0.0-2.0); EOSINOPHILS # 0.1 10^3/ul (0.0-0.5); EOSINOPHILS % 1.8 % (0.0-7.0); HEMATOCRIT 29.3 % (42.0-52.0); HEMOGLOBIN 9.4 g/dl (14.0-18.0); LYMPHOCYTES # 1.2 10^3/ul (0.8-2.9); LYMPHOCYTES % 16.9 % (15.0-51.0); MEAN CORPUSCULAR HEMOGLOBIN 31.4 pg (29.0-33.0); MEAN CORPUSCULAR HGB CONC 32.1 g/dl (32.0-37.0); MEAN PLATELET VOLUME 11.5 fl (7.4-10.4); MONOCYTES % 13.6 % (0.0-11.0); NEUTROPHIL # 4.8 10^3/ul (1.6-7.5); NEUTROPHILS % 66.6 % (39.0-77.0); PLATELET COUNT 291 10^3/UL (140-415); RED BLOOD COUNT 2.99 10^6/ul (4.70-6.10); RED CELL DISTRIBUTION WIDTH 17.4 % (11.5-14.5)
[2017-10-30 06:55] LABS: WHITE BLOOD COUNT 7.2 10^3/ul (4.8-10.8)
[2017-10-30 07:26] LABS: CHOL/HDL RATIO 3.1 RATIO; CREATINE KINASE 34 IU/L (23-200); HDL CHOLESTEROL 41 mg/dl (30-78); LDL CHOLESTEROL,CALCULATED 72 mg/dl; TRIGLYCERIDES 76 mg/dl (0-149)
[2017-10-30 07:26] LABS: CHOLESTEROL 128 mg/dl (100-200)
[2017-10-30 07:34] LABS: CK INDEX 2.4
[2017-10-30 07:38] LABS: CK-MB 0.81 ng/ml (0.0-2.4); TROPONIN-I 0.222 ng/ml (0.00-0.12)
[2017-10-30 07:46] LABS: ALBUMIN 2.7 g/dl (3.3-4.9); ANION GAP 15 (8-16); BLOOD UREA NITROGEN 18 mg/dl (7-20); CARBON DIOXIDE 30 mmol/L (21-31); CHLORIDE 101 mmol/L (97-110); CREATININE 2.92 mg/dl (0.61-1.24); GLUCOSE 82 mg/dl (70-220); MAGNESIUM 2.2 mg/dl (1.7-2.5); PHOSPHORUS 2.7 mg/dl (2.5-4.9); SODIUM 142 mmol/L (135-144)
[2017-10-30] MEDS: INSULIN ASPART [NOVOLOG] 3 ML PEN SC ×4 (08:00→20:28)
[2017-10-30] MEDS: SALINE 0.65% 45 ML NAS SPRAY NASAL ×2 (09:54→20:22)
[2017-10-30] MEDS: POLYETHYLENE GLYCOL 17 GM PACKET PO (09:54)
[2017-10-30] MEDS: AMPICILLIN 1 GM/NS (PMX) 50 ML IVPB ×2 (09:54→20:32)
[2017-10-30] MEDS: MULTIVIT/CA CARB/B CMPLX/FA TAB PO (09:55)
[2017-10-30] MEDS: GABAPENTIN 300 MG CAP PO ×2 (09:55→20:22)
[2017-10-30] MEDS: ASPIRIN (EC) 81 MG TAB PO (09:55)
[2017-10-30] MEDS: DOCUSATE SODIUM 250 MG CAP PO (09:55)
[2017-10-30] MEDS: AMLODIPINE 5 MG TAB PO ×2 (09:55→20:31)
[2017-10-30] MEDS: CLOPIDOGREL 75 MG TAB PO (09:55)
[2017-10-30] MEDS: LORATADINE 10 MG TAB PO (09:55)
[2017-10-30] MEDS: CILOSTAZOL 100 MG TAB PO (09:56)
[2017-10-30] MEDS: METOPROLOL 50 MG TAB PO ×2 (09:56→20:23)
[2017-10-30] MEDS: ISOSORBIDE DINITRATE 10 MG TAB PO ×3 (09:57→20:25)
[2017-10-30] MEDS: HEPARIN 5,000 UNIT/0.5 ML VIAL SC ×2 (10:03→20:28)
[2017-10-30] MEDS: HYDROmorphONE 0.5 MG/0.5 ML SYG IV (15:29)
[2017-10-30 15:48] LABS: B-TYPE NATRIURETIC PEPTIDE 94100 PG/ML (0-125)
[2017-10-30] MEDS: FUROSEMIDE 40 MG TAB PO (17:06)
[2017-10-30] MEDS: DOCUSATE SODIUM 100 MG CAP PO (20:22)
[2017-10-30] MEDS: OXYCODONE/ACETAMINOPHEN (10/325) TAB PO (20:23)
[2017-10-31] MEDS: FUROSEMIDE 40 MG TAB PO ×2 (05:11→17:33)
[2017-10-31] MEDS: OXYCODONE/ACETAMINOPHEN (5/325) TAB PO ×2 (05:12→11:42)
[2017-10-31] MEDS: PANTOPRAZOLE (EC) 40 MG TAB PO (05:12)
[2017-10-31] MEDS: INSULIN ASPART [NOVOLOG] 3 ML PEN SC ×2 (08:00→11:39)
[2017-10-31 08:16] LABS: ADD MAN DIFF? NO
[2017-10-31 08:19] LABS: BASOPHIL # 0.1 10^3/ul (0.0-0.1); BASOPHILS % 0.5 % (0.0-2.0); EOSINOPHILS # 0.4 10^3/ul (0.0-0.5); EOSINOPHILS % 4.4 % (0.0-7.0); HEMATOCRIT 30.1 % (42.0-52.0); HEMOGLOBIN 9.5 g/dl (14.0-18.0); LYMPHOCYTES # 1.7 10^3/ul (0.8-2.9); LYMPHOCYTES % 18.2 % (15.0-51.0); MEAN CORPUSCULAR HEMOGLOBIN 31.5 pg (29.0-33.0); MEAN CORPUSCULAR HGB CONC 31.6 g/dl (32.0-37.0); MEAN CORPUSCULAR VOLUME 99.7 fl (82.0-101.0); MEAN PLATELET VOLUME 11.3 fl (7.4-10.4); MONOCYTE # 1.1 10^3/ul (0.3-0.9); MONOCYTES % 11.8 % (0.0-11.0); NEUTROPHIL # 5.9 10^3/ul (1.6-7.5); NEUTROPHILS % 64.6 % (39.0-77.0); PLATELET COUNT 290 10^3/UL (140-415); RED BLOOD COUNT 3.02 10^6/ul (4.70-6.10); RED CELL DISTRIBUTION WIDTH 17.4 % (11.5-14.5)
[2017-10-31 08:19] LABS: WHITE BLOOD COUNT 9.2 10^3/ul (4.8-10.8)
[2017-10-31 08:54] LABS: ALBUMIN 2.8 g/dl (3.3-4.9); ANION GAP 15 (8-16); BLOOD UREA NITROGEN 34 mg/dl (7-20); CALCIUM 7.7 mg/dl (8.4-10.2); CARBON DIOXIDE 30 mmol/L (21-31); CHLORIDE 100 mmol/L (97-110); CREATININE 4.53 mg/dl (0.61-1.24); GLUCOSE 110 mg/dl (70-220); MAGNESIUM 2.3 mg/dl (1.7-2.5); PHOSPHORUS 3.3 mg/dl (2.5-4.9); POTASSIUM 3.6 mmol/L (3.5-5.1); SODIUM 141 mmol/L (135-144)
[2017-10-31] MEDS: AMPICILLIN 1 GM/NS (PMX) 50 ML IVPB (09:29)
[2017-10-31] MEDS: DOCUSATE SODIUM 250 MG CAP PO (09:29)
[2017-10-31] MEDS: ASPIRIN (EC) 81 MG TAB PO (09:29)
[2017-10-31] MEDS: MULTIVIT/CA CARB/B CMPLX/FA TAB PO (09:29)
[2017-10-31] MEDS: POLYETHYLENE GLYCOL 17 GM PACKET PO (09:29)
[2017-10-31] MEDS: GABAPENTIN 300 MG CAP PO (09:29)
[2017-10-31] MEDS: CLOPIDOGREL 75 MG TAB PO (09:30)
[2017-10-31] MEDS: LORATADINE 10 MG TAB PO (09:30)
[2017-10-31] MEDS: POVIDONE IODINE 10% 28.4 GM OINT TOP (09:37)
[2017-10-31] MEDS: SALINE 0.65% 45 ML NAS SPRAY NASAL (09:37)
[2017-10-31] MEDS: METOPROLOL 50 MG TAB PO (09:38)
[2017-10-31] MEDS: AMLODIPINE 5 MG TAB PO (09:38)
[2017-10-31] MEDS: HEPARIN 5,000 UNIT/0.5 ML VIAL SC (09:40)
[2017-10-31] MEDS: ISOSORBIDE DINITRATE 10 MG TAB PO ×2 (09:44→13:00)
[2017-10-31] MEDS: OXYCODONE/ACETAMINOPHEN (10/325) TAB PO ×2 (09:45→14:34)
[2017-10-31] MEDS: AMIKACIN 250 MG in SOD CHLORIDE 0.9% 100 ML IVPB (16:39)
[2017-10-31] MEDS: EPOETIN 3000 UNITS/1 ML INJ (ESRD) SC (16:40)
== END 2017-10-31 17:52 | disposition home health service (06) | DRG 291 ==
LOC: E/R 13:51 → MS4 17:04
PROVIDERS: Internal Medicine; Pediatrics Neonatal-Perinatal Medicine
PROC: 30233N1 Transfusion of Nonautologous Red Blood Cells into Peripheral Vein, Percutaneous Approach (ICD-10-PCS; 2017-10-28)
PROC: 5A1D70Z Performance of Urinary Filtration, Intermittent, Less than 6 Hours Per Day (ICD-10-PCS; principal; 2017-10-29)
DX: I13.2 Hypertensive heart and chronic kidney disease with heart failure and with stage 5 chronic kidney disease, or end stage renal disease (principal); I50.33 Acute on chronic diastolic (congestive) heart failure; N18.6 End stage renal disease; E11.52 Type 2 diabetes mellitus with diabetic peripheral angiopathy with gangrene; I96 Gangrene, not elsewhere classified; I25.10 Atherosclerotic heart disease of native coronary artery without angina pectoris; R07.9 Chest pain, unspecified; D63.8 Anemia in other chronic diseases classified elsewhere; E87.6 Hypokalemia; G89.29 Other chronic pain; I73.9 Peripheral vascular disease, unspecified; E11.22 Type 2 diabetes mellitus with diabetic chronic kidney disease; Z95.5 Presence of coronary angioplasty implant and graft; Z89.612 Acquired absence of left leg above knee
CPT/HCPCS: 36430; 71045; 80048; 80053; 80061; 80069; 82550; 82553; 82962; 83735; 83880; 84484; 85025; 86850; 86900; 86901; 86920; 87340; 90935; 93005; 99291-25

== ENCOUNTER 2017-11-06 14:22 | Outpatient (CLI) | payer OTHER | END 2017-11-06 17:00 | disposition home or self-care (01) | LOC: DCC 14:22 | DX: I12.0 Hypertensive chronic kidney disease with stage 5 chronic kidney disease or end stage renal disease (principal); N18.6 End stage renal disease; Z99.2 Dependence on renal dialysis; E11.8 Type 2 diabetes mellitus with unspecified complications; I73.9 Peripheral vascular disease, unspecified; I25.10 Atherosclerotic heart disease of native coronary artery without angina pectoris; I50.9 Heart failure, unspecified; D64.9 Anemia, unspecified | CPT/HCPCS: G0463 ==

== ENCOUNTER 2017-12-16 05:34 | Inpatient (IN) | payer OTHER ==
[2017-12-16 06:15] LABS: ADD MAN DIFF? NO
[2017-12-16 06:24] LABS: WHITE BLOOD COUNT 10.3 10^3/ul (4.8-10.8)
[2017-12-16 06:24] LABS: HEMATOCRIT 34.1 % (42.0-52.0); HEMOGLOBIN 10.6 g/dl (14.0-18.0); LYMPHOCYTES % 15.4 % (15.0-51.0); MEAN CORPUSCULAR HEMOGLOBIN 32.3 pg (29.0-33.0); MEAN CORPUSCULAR HGB CONC 31.1 g/dl (32.0-37.0); MEAN PLATELET VOLUME 12.2 fl (7.4-10.4); MONOCYTES % 7.1 % (0.0-11.0); NEUTROPHILS % 70.7 % (39.0-77.0); PLATELET COUNT 264 10^3/UL (140-415); RED BLOOD COUNT 3.28 10^6/ul (4.70-6.10); RED CELL DISTRIBUTION WIDTH 15.1 % (11.5-14.5)
[2017-12-16 06:25] LABS: BASOPHIL # 0.1 10^3/ul (0.0-0.1); BASOPHILS % 0.8 % (0.0-2.0); EOSINOPHILS # 0.6 10^3/ul (0.0-0.5); EOSINOPHILS % 5.7 % (0.0-7.0); LYMPHOCYTES # 1.6 10^3/ul (0.8-2.9); MONOCYTE # 0.7 10^3/ul (0.3-0.9); NEUTROPHIL # 7.3 10^3/ul (1.6-7.5)
[2017-12-16 06:43] LABS: INR 1.27; PROTIME 16.1 Sec (11.9-14.9); PT RATIO 1.3
[2017-12-16 06:48] LABS: ALANINE AMINOTRANSFERASE 33 IU/L (13-69); ALBUMIN 3.6 g/dl (3.3-4.9); ALBUMIN/GLOBULIN RATIO 0.81; ALKALINE PHOSPHATASE 232 IU/L (42-121); ANION GAP 19 (8-16); ASPARTATE AMINO TRANSFERASE 37 IU/L (15-46); BILIRUBIN,INDIRECT 0.1 mg/dl (0-1.1); BILIRUBIN,TOTAL 0.1 mg/dl (0.2-1.3); CARBON DIOXIDE 29 mmol/L (21-31); CHLORIDE 100 mmol/L (97-110); GLUCOSE 87 mg/dl (70-220)
[2017-12-16 06:49] LABS: BLOOD UREA NITROGEN 39 mg/dl (7-20); CREATININE 3.89 mg/dl (0.61-1.24); POTASSIUM 5.1 mmol/L (3.5-5.1); SODIUM 143 mmol/L (135-144)
[2017-12-16] MEDS ORDERED: THROMBIN 5000 UNIT VIAL (06:51)
[2017-12-16 06:59] LABS: PARTIAL THROMBOPLASTIN TIME 35.5 Sec (25.0-35.0)
[2017-12-16] MEDS ORDERED: CEFAZOLIN 1 GM INJ (07:00)
[2017-12-16] MEDS ORDERED: ROPIVACAINE 0.5 % 30 ML VIAL (07:36)
[2017-12-16] MEDS ORDERED: MIDAZOLAM 1 MG/ML 2 ML INJ ×2 (07:37)
[2017-12-16] MEDS: CEFAZOLIN 2 GM/50 ML (PMX) 50 ML IVPB (07:55)
[2017-12-16] MEDS: BUPIVACAINE 0.5% (SDV) 30 ML INJ (08:11)
[2017-12-16] MEDS: LIDOCAINE 1% (MPF) 30 ML INJ (08:11)
[2017-12-16] MEDS ORDERED: EPHEDrine SULFATE 50 MG/5 ML SYG IV (10:00)
[2017-12-16] MEDS ORDERED: hydrALAzine 20 MG INJ IV (10:00)
[2017-12-16] MEDS ORDERED: HYDROCODONE/APAP (5/325) TAB PO (10:00)
[2017-12-16] MEDS ORDERED: MIDAZOLAM 1 MG/ML 2 ML INJ IV (10:00)
[2017-12-16] MEDS ORDERED: FENTAnyl 50 MCG/ML VIAL IV ×2 (10:00)
[2017-12-16] MEDS ORDERED: MEPERIDINE 25 MG INJ IV (10:00)
[2017-12-16] MEDS ORDERED: ALBUTEROL 0.083% (NEB) 2.5 MG/3 ML AMP HHN (10:00)
[2017-12-16] MEDS ORDERED: DIPHENHYDRAMINE 50 MG INJ IV (10:00)
[2017-12-16] MEDS ORDERED: LABETALOL HCL 20MG INJ IV (10:00)
[2017-12-16] MEDS ORDERED: OXYCODONE/ACETAMINOPHEN (5/325) TAB PO ×2 (10:00)
[2017-12-16] MEDS ORDERED: HYDROmorphONE (0.2 MG/ML) 10ML SYG IV ×2 (10:00)
[2017-12-16] MEDS ORDERED: ONDANSETRON 4 MG INJ IV (10:00)
[2017-12-16] MEDS: INSULIN ASPART [NOVOLOG] 3 ML PEN SC ×4 (10:50→21:00)
[2017-12-16] MEDS ORDERED: NACL 0.9% 3 ML SYG IV (12:00)
[2017-12-16] MEDS: ISOSORBIDE DINITRATE 10 MG TAB PO ×2 (14:27→20:53)
[2017-12-16] MEDS: ACETAMINOPHEN 325 MG TAB PO ×2 (15:48→22:35)
[2017-12-16] MEDS: PENTOXIFYLLINE (SR) 400 MG TAB PO (17:40)
[2017-12-16] MEDS: CEFAZOLIN 1 GM/50 ML (PMX) 50 ML IVPB (20:48)
[2017-12-16] MEDS: OXYCODONE/ACETAMINOPHEN (10/325) TAB PO (20:51)
[2017-12-16] MEDS: AMLODIPINE 5 MG TAB PO (20:53)
[2017-12-16] MEDS: CILOSTAZOL 100 MG TAB PO (20:53)
[2017-12-16] MEDS: GABAPENTIN 300 MG CAP PO (20:53)
[2017-12-16] MEDS: METOPROLOL 50 MG TAB PO (20:54)
[2017-12-16] MEDS: morphine 2 MG INJ IV (22:30)
[2017-12-16] MEDS: ACCU-CHEK XX (23:49)
[2017-12-17] MEDS: morphine 4 MG/ML VIAL IV (01:15)
[2017-12-17] MEDS: OXYCODONE/ACETAMINOPHEN (10/325) TAB PO ×4 (04:13→22:40)
[2017-12-17 05:25] LABS: ADD MAN DIFF? NO
[2017-12-17 05:29] LABS: BASOPHIL # 0.1 10^3/ul (0.0-0.1); BASOPHILS % 0.6 % (0.0-2.0); EOSINOPHILS # 0.1 10^3/ul (0.0-0.5); EOSINOPHILS % 0.6 % (0.0-7.0); HEMATOCRIT 30.8 % (42.0-52.0); HEMOGLOBIN 9.7 g/dl (14.0-18.0); LYMPHOCYTES # 1.8 10^3/ul (0.8-2.9); LYMPHOCYTES % 14.7 % (15.0-51.0); MEAN CORPUSCULAR HEMOGLOBIN 32.3 pg (29.0-33.0); MEAN CORPUSCULAR HGB CONC 31.5 g/dl (32.0-37.0); MEAN CORPUSCULAR VOLUME 102.7 fl (82.0-101.0); MEAN PLATELET VOLUME 12.5 fl (7.4-10.4); MONOCYTE # 0.9 10^3/ul (0.3-0.9); MONOCYTES % 7.3 % (0.0-11.0); NEUTROPHIL # 9.4 10^3/ul (1.6-7.5); NEUTROPHILS % 76.3 % (39.0-77.0); PLATELET COUNT 242 10^3/UL (140-415); RED CELL DISTRIBUTION WIDTH 15.5 % (11.5-14.5)
[2017-12-17 05:29] LABS: WHITE BLOOD COUNT 12.3 10^3/ul (4.8-10.8)
[2017-12-17] MEDS: PANTOPRAZOLE (EC) 40 MG TAB PO (06:43)
[2017-12-17 06:58] LABS: ALANINE AMINOTRANSFERASE 26 IU/L (13-69); ALBUMIN 3.4 g/dl (3.3-4.9); ALBUMIN/GLOBULIN RATIO 0.82; ALKALINE PHOSPHATASE 220 IU/L (42-121); ANION GAP 21 (8-16); ASPARTATE AMINO TRANSFERASE 36 IU/L (15-46); BLOOD UREA NITROGEN 57 mg/dl (7-20); CALCIUM 8.7 mg/dl (8.4-10.2); CARBON DIOXIDE 27 mmol/L (21-31); CHLORIDE 99 mmol/L (97-110); CHOL/HDL RATIO 2.6 RATIO; CHOLESTEROL 105 mg/dl (100-200); CREATININE 5.63 mg/dl (0.61-1.24); GLUCOSE 118 mg/dl (70-220); HDL CHOLESTEROL 39 mg/dl (30-78); LDL CHOLESTEROL,CALCULATED 55 mg/dl; PHOSPHORUS 5.6 mg/dl (2.5-4.9); POTASSIUM 5.9 mmol/L (3.5-5.1); SODIUM 141 mmol/L (135-144); TOTAL PROTEIN 7.5 g/dl (6.1-8.1); TRIGLYCERIDES 54 mg/dl (0-149)
[2017-12-17] MEDS: INSULIN ASPART [NOVOLOG] 3 ML PEN SC ×4 (07:50→20:20)
[2017-12-17] MEDS: PENTOXIFYLLINE (SR) 400 MG TAB PO ×3 (08:34→18:27)
[2017-12-17] MEDS: CILOSTAZOL 100 MG TAB PO ×2 (08:35→20:20)
[2017-12-17] MEDS: ASPIRIN (EC) 81 MG TAB PO (08:35)
[2017-12-17] MEDS: MULTIVIT/CA CARB/B CMPLX/FA TAB PO (08:35)
[2017-12-17] MEDS: DOCUSATE SODIUM 250 MG CAP PO (08:35)
[2017-12-17] MEDS: GABAPENTIN 300 MG CAP PO ×2 (08:35→20:21)
[2017-12-17] MEDS: CEFAZOLIN 1 GM/50 ML (PMX) 50 ML IVPB (08:35)
[2017-12-17] MEDS: CLOPIDOGREL 75 MG TAB PO (08:35)
[2017-12-17 08:54] LABS: HEMOGLOBIN A1C 5.2 % (0-5.9)
[2017-12-17] MEDS: METOPROLOL 50 MG TAB PO ×2 (09:00→20:21)
[2017-12-17] MEDS: AMLODIPINE 5 MG TAB PO ×2 (09:00→20:21)
[2017-12-17] MEDS: POLYETHYLENE GLYCOL 17 GM PACKET PO (09:00)
[2017-12-17] MEDS: ISOSORBIDE DINITRATE 10 MG TAB PO ×3 (09:00→20:21)
[2017-12-17] MEDS: morphine 2 MG INJ IV ×3 (09:14→18:28)
[2017-12-17] MEDS: ACCU-CHEK XX (22:37)
[2017-12-18] MEDS: ACCU-CHEK XX (02:00)
[2017-12-18] MEDS: OXYCODONE/ACETAMINOPHEN (10/325) TAB PO ×5 (05:03→21:58)
[2017-12-18] MEDS: PANTOPRAZOLE (EC) 40 MG TAB PO (05:03)
[2017-12-18 05:46] LABS: ADD MAN DIFF? NO
[2017-12-18 05:58] LABS: WHITE BLOOD COUNT 12.8 10^3/ul (4.8-10.8)
[2017-12-18 05:58] LABS: BASOPHILS % 0.3 % (0.0-2.0); EOSINOPHILS # 0.2 10^3/ul (0.0-0.5); EOSINOPHILS % 1.6 % (0.0-7.0); HEMATOCRIT 31.3 % (42.0-52.0); HEMOGLOBIN 9.9 g/dl (14.0-18.0); LYMPHOCYTES % 15.9 % (15.0-51.0); MEAN CORPUSCULAR HEMOGLOBIN 31.8 pg (29.0-33.0); MEAN CORPUSCULAR HGB CONC 31.6 g/dl (32.0-37.0); MEAN CORPUSCULAR VOLUME 100.6 fl (82.0-101.0); MEAN PLATELET VOLUME 12.3 fl (7.4-10.4); MONOCYTE # 1.1 10^3/ul (0.3-0.9); MONOCYTES % 8.4 % (0.0-11.0); NEUTROPHIL # 9.3 10^3/ul (1.6-7.5); NEUTROPHILS % 73.2 % (39.0-77.0); PLATELET COUNT 256 10^3/UL (140-415); RED BLOOD COUNT 3.11 10^6/ul (4.70-6.10); RED CELL DISTRIBUTION WIDTH 15.3 % (11.5-14.5)
[2017-12-18 06:17] LABS: ANION GAP 18 (8-16); BLOOD UREA NITROGEN 31 mg/dl (7-20); CALCIUM 8.7 mg/dl (8.4-10.2); CARBON DIOXIDE 31 mmol/L (21-31); CHLORIDE 98 mmol/L (97-110); CREATININE 3.79 mg/dl (0.61-1.24); GLUCOSE 77 mg/dl (70-220); POTASSIUM 4.5 mmol/L (3.5-5.1); SODIUM 142 mmol/L (135-144)
[2017-12-18] MEDS: INSULIN ASPART [NOVOLOG] 3 ML PEN SC ×4 (07:50→19:50)
[2017-12-18] MEDS: MULTIVIT/CA CARB/B CMPLX/FA TAB PO (08:33)
[2017-12-18] MEDS: DOCUSATE SODIUM 250 MG CAP PO (08:33)
[2017-12-18] MEDS: CILOSTAZOL 100 MG TAB PO ×2 (08:34→20:35)
[2017-12-18] MEDS: CLOPIDOGREL 75 MG TAB PO (08:34)
[2017-12-18] MEDS: AMLODIPINE 5 MG TAB PO ×2 (08:34→20:35)
[2017-12-18] MEDS: ASPIRIN (EC) 81 MG TAB PO (08:34)
[2017-12-18] MEDS: PENTOXIFYLLINE (SR) 400 MG TAB PO ×3 (08:34→17:54)
[2017-12-18] MEDS: ISOSORBIDE DINITRATE 10 MG TAB PO ×3 (08:35→20:36)
[2017-12-18] MEDS: GABAPENTIN 300 MG CAP PO ×2 (08:35→20:36)
[2017-12-18] MEDS: POLYETHYLENE GLYCOL 17 GM PACKET PO (08:36)
[2017-12-18] MEDS: METOPROLOL 50 MG TAB PO ×2 (08:36→20:36)
[2017-12-19 05:03] LABS: ADD MAN DIFF? NO
[2017-12-19] MEDS: OXYCODONE/ACETAMINOPHEN (10/325) TAB PO ×2 (05:06→14:04)
[2017-12-19] MEDS: PANTOPRAZOLE (EC) 40 MG TAB PO (05:06)
[2017-12-19 05:08] LABS: WHITE BLOOD COUNT 11.1 10^3/ul (4.8-10.8)
[2017-12-19 05:08] LABS: BASOPHIL # 0.1 10^3/ul (0.0-0.1); BASOPHILS % 0.6 % (0.0-2.0); EOSINOPHILS # 0.8 10^3/ul (0.0-0.5); EOSINOPHILS % 6.9 % (0.0-7.0); HEMATOCRIT 30.9 % (42.0-52.0); HEMOGLOBIN 9.7 g/dl (14.0-18.0); LYMPHOCYTES # 2.1 10^3/ul (0.8-2.9); LYMPHOCYTES % 18.9 % (15.0-51.0); MEAN CORPUSCULAR HEMOGLOBIN 32.1 pg (29.0-33.0); MEAN CORPUSCULAR HGB CONC 31.4 g/dl (32.0-37.0); MEAN CORPUSCULAR VOLUME 102.3 fl (82.0-101.0); MONOCYTE # 0.9 10^3/ul (0.3-0.9); MONOCYTES % 7.7 % (0.0-11.0); NEUTROPHIL # 7.3 10^3/ul (1.6-7.5); NEUTROPHILS % 65.4 % (39.0-77.0); PLATELET COUNT 268 10^3/UL (140-415); RED BLOOD COUNT 3.02 10^6/ul (4.70-6.10); RED CELL DISTRIBUTION WIDTH 15.3 % (11.5-14.5)
[2017-12-19 05:28] LABS: ANION GAP 19 (8-16); BLOOD UREA NITROGEN 50 mg/dl (7-20); CALCIUM 8.3 mg/dl (8.4-10.2); CARBON DIOXIDE 28 mmol/L (21-31); CHLORIDE 96 mmol/L (97-110); CREATININE 5.09 mg/dl (0.61-1.24); GLUCOSE 84 mg/dl (70-220); SODIUM 138 mmol/L (135-144)
[2017-12-19] MEDS: INSULIN ASPART [NOVOLOG] 3 ML PEN SC ×2 (07:50→11:40)
[2017-12-19] MEDS: MULTIVIT/CA CARB/B CMPLX/FA TAB PO (08:52)
[2017-12-19] MEDS: CILOSTAZOL 100 MG TAB PO (08:52)
[2017-12-19] MEDS: PENTOXIFYLLINE (SR) 400 MG TAB PO ×2 (08:53→14:03)
[2017-12-19] MEDS: CLOPIDOGREL 75 MG TAB PO (08:53)
[2017-12-19] MEDS: GABAPENTIN 300 MG CAP PO (08:53)
[2017-12-19] MEDS: ASPIRIN (EC) 81 MG TAB PO (08:53)
[2017-12-19] MEDS: AMLODIPINE 5 MG TAB PO (09:00)
[2017-12-19] MEDS: ISOSORBIDE DINITRATE 10 MG TAB PO ×2 (09:00→13:00)
[2017-12-19] MEDS: METOPROLOL 50 MG TAB PO (09:00)
[2017-12-19] MEDS: POLYETHYLENE GLYCOL 17 GM PACKET PO (09:00)
[2017-12-19] MEDS: DOCUSATE SODIUM 250 MG CAP PO (09:00)
[2017-12-19 12:28] LABS: HEPATITIS B SURFACE ANTIGEN NEGATIVE (NEGATIVE)
[2017-12-19] MEDS ORDERED: GLUCAGON 1 MG INJ IM (15:00)
[2017-12-19] MEDS ORDERED: DEXTROSE 50% 50 ML SYRINGE IV ×2 (15:00)
[2017-12-19] MEDS ORDERED: GLUCOSE GEL 15 GRAM TUBE PO ×2 (15:00)
[2017-12-19] MEDS ORDERED: GLUCOSE GEL 15 GRAM TUBE BUCCAL (15:00)
== END 2017-12-19 16:50 | disposition home health service (06) | DRG 239 ==
LOC: SDS 05:34 → MS1 10:31 → SDS 11:44 → MS1 11:45
PROC: 0Y6C0Z3 Detachment at Right Upper Leg, Low, Open Approach (ICD-10-PCS; principal; 2017-12-16 07:30)
DX: I70.261 Atherosclerosis of native arteries of extremities with gangrene, right leg (principal); N18.6 End stage renal disease; I13.2 Hypertensive heart and chronic kidney disease with heart failure and with stage 5 chronic kidney disease, or end stage renal disease; I50.30 Unspecified diastolic (congestive) heart failure; L97.519 Non-pressure chronic ulcer of other part of right foot with unspecified severity; I70.202 Unspecified atherosclerosis of native arteries of extremities, left leg; Z89.612 Acquired absence of left leg above knee; E11.22 Type 2 diabetes mellitus with diabetic chronic kidney disease; Z99.2 Dependence on renal dialysis; E11.52 Type 2 diabetes mellitus with diabetic peripheral angiopathy with gangrene; I25.2 Old myocardial infarction; D63.1 Anemia in chronic kidney disease; Z89.431 Acquired absence of right foot; I25.10 Atherosclerotic heart disease of native coronary artery without angina pectoris; Z95.5 Presence of coronary angioplasty implant and graft; E11.42 Type 2 diabetes mellitus with diabetic polyneuropathy; E78.5 Hyperlipidemia, unspecified; E87.5 Hyperkalemia
CPT/HCPCS: 80048; 80053; 80061; 82962; 83036; 83735; 84100; 84443; 85025; 85610; 85730; 87340; 88307; 90935; 93931; 97110; 97163; 97530